=== PATIENT | male | born 1950 | race Caucasian/White ===

== ENCOUNTER 2017-08-24 01:06 | Inpatient (IN) | payer MEDICARE, SELFPAY ==
[2017-08-24] VITALS (193 sets, daily range): BP systolic 111–162; BP diastolic 56–107; PULSE 61–155; RESP 14–43; TEMP 36.7–36.9; O2SAT 86–99
--- NOTE | 2017-08-24 01:23 | ED.GENADUL_ITS ---
Disposition Clinical Impression: Spontaneous pneumothorax, Atrial fibrillation with RVR, COPD with acute exacerbation Disposition: [facility] INPATIENT Condition: Fair Medical Decision Making - Lab Data Laboratory Tests 08/24/17 08/24/17 08/24/17 01:25 01:25 01:25 WBC 5.75 RBC 5.04 Hgb 14.7 Hct 44.4 MCV 88.1 MCH 29.2 MCHC 33.1 RDW 14.7 H Plt Count 105 L MPV 11.4 H Immature Gran % 0.2 Neutrophils % 72.0 Lymphocytes % 18.3 Monocytes % 8.3 Eosinophils % 1.0 Basophils % 0.2 Absolute Neutrophils 4.14 Absolute Lymphocytes 1.05 L Absolute Monocytes 0.48 Absolute Eosinophils 0.06 Absolute Basophils 0.01 Sodium 136 Potassium 3.8 Chloride 100 Carbon Dioxide 28.2 Anion Gap 7.8 BUN 24 H Creatinine 1.68 H Estimated GFR/1.73 m2 40.96 Glucose 263 H Calcium 8.8 Magnesium 1.7 L Total Bilirubin 0.4 Conjugated Bilirubin 0.14 AST 23 ALT 21 Alkaline Phosphatase 115 Troponin I < 0.02 Total Protein 7.8 Albumin 3.6 08/24/17 0128: 131bpm. Afib. T-wave inversion noted in II, III, aVF. Previous EKG notes minimal T-wave inversion in lead III but more pronounced in current EKG. No acute ST elevation. - Radiology Data Radiology results: report reviewed, image reviewed Chest x-ray: 1. There is a large right pneumothorax. There is complete collapse of the right lung. 2. There may be mild shift of the mediastinum to left consistent with mild tension pneumothorax. Status post attempted pigtail chest tube: Pigtail chest tube noted in lateral chest wall soft tissue. Stable right large pneumothorax noted with collapse of right lung. Status post chest tube placement: Interval placement of right chest tube with interval decrease in right pneumothorax and reexpansion of right lung - Medical Decision Making 67-year-old male with a history of atrial fibrillation on Eliquis, and COPD who presents for shortness of breath today worse this evening. EMS notes O2 saturation were in the 80s on room air on arrival and increased to 95% after 2 neb treatments. Patient is significantly decreased breath sounds on the right posterior chest with wheezing and rhonchi left posterior chest. Heart rate 130s -140s in atrial fibrillation on EKG. blood pressure 129/107. O2 sat 88% on 2L, increased to 4L. He admitted to some chest pain upon asking that started just prior to arrival. I do not see any rate control medication for his atrial fibrillation on his medication list. Differential diagnosis includes dyspnea associated with atrial fibrillation, acute COPD exacerbation, pneumonia, CA, pneumothorax. He has a previous history of spontaneous pneumothorax with right chest tube placement 1 year ago. He denies any new current injury. Will do a cardiac workup, portable chest x-ray, give IV Solu-Medrol, Cardizem, and albuterol neb treatment. 0220: X-ray notes large right pneumothorax. Vrad called to notify the findings and thought there was either a mild tension pneumothorax or could be patient positioning with rotation. Patient's blood pressure has been stable with systolic 130s-140s. Patient is still tachycardic into the 110s-120s. He is awake and alert and answering questions. As patient is on Eliquis, will place a pigtail chest tube to minimize excessive bleeding with placement of a large chest tube. Labs reviewed. Troponin negative. 0230: Call placed to surgery Dr. Deleon to discuss any contraindications or other recommendations as patient is on Eliquis. No other recommendations and can proceed with pigtail chest tube. 0245: Difficulty with placing pigtail chest tube at bedside due to lack of necessary equipment in pigtail kit and improper placement noted in subcutaneous tissue on chest x-ray. Call placed to Dr. Deleon to come in to assist with pigtail placement. While waiting for Dr. Deleon, I started to attempt to place a 20 [place] chest tube at the same pigtail chest tube site at 4th IC space mid axillary line at bedside when Dr. Deleon arrived and plan is now for her to place chest tube. 0315: Discussed with Dr. Aldana regarding admission and he believed this was a surgical admission as he presented with large right pneumothorax requiring chest tube. I explained the patient also has atrial fibrillation with RVR, requiring cardizem gtt, and acute COPD requiring steroids and nebs. I discussed this with Dr. Deleon and she requests patient be admitted to hospitalist for management of multiple medical issues. 0345: Pt had significant pain during chest tube placement requiring 150mcg fentanyl and 1mg dilaudid. After chest tube placement, pt's BP stable at 153/96 , HR 100s-120s. O2 sat improved to 96% on 4L. Will start cardizem gtt. 0400: Case discussed with Dr. Aldana - accepts patient for admission. 0415: Proper placement of chest tube confirmed on chest xray with decrease of pneumothorax and reexpansion of right lung. History of Present Illness - General Stated complaint: IDANIA RESCUE Time Seen by Provider: 08/24/17 01:20 Source: patient Mode of arrival: ambulatory Limitations: no limitations - History of Present Illness Initial comments: 67-year-old male with history of atrial fibrillation and COPD and chronic smoker who presents for shortness of breath today worse this evening. Patient states he was mowing the lawn at home today and his shortness of breath began. Patient denies known fever. Patient states he smokes 1 pack of cigarettes daily. Patient also admits to anterior chest pain that 1 hour prior to arrival. Upon EMS arrival, O2 saturation 80s on room air. After 2 nebulizer treatments per EMS, O2 saturation increased to 95%. Patient does not use oxygen at home. Patient denies history of intubations. - Related Data Narcotic Contract 12/29/12 Epinephrine [Epipen 2-Virgil] 0.3 mg IM ONCE #1 each 07/14/14 Amlodipine Besylate 10 mg PO DAILY #90 tab-cap 11/04/16 Apixaban [Eliquis] 5 mg PO BID #180 tab 01/03/17 Acetaminophen [Tylenol] 1,000 mg PO TID #120 tab 02/05/17 Docusate Sodium [Colace] 100 mg PO BID PRN PRN cap 02/05/17 QUEtiapine [Seroquel] 100 mg PO HS PRN #90 tab 02/28/17 Doxycycline Hyclate 50 mg PO BID #180 tab-cap 04/09/17 MORPHine [Msir] 30 mg PO BID #56 tab-cap 08/15/17 Morphine Sulfate [Morphine Sulfate Er] 100 mg PO BID PRN #56 tab 08/15/17 Allergies Allergy/AdvReac Type Severity Reaction Status Date / Time spironolactone Allergy Unknown Unverified 08/24/17 01:26 bee pollen Allergy Unverified 08/24/17 01:26 Review of Systems Constitutional: denies: chills, fever Eyes: denies: eye pain ENT: denies: ear pain, dental pain Respiratory: shortness of breath. denies: cough Cardiovascular: chest pain, dyspnea on exertion Gastrointestinal: denies: abdominal pain, nausea, vomiting Genitourinary: denies: urgency, dysuria, frequency Musculoskeletal: denies: back pain Skin: denies: rash, lesions Neurological: denies: headache, weakness, numbness Past Medical History - Past Medical History Medical history: AFIB, COPD, hypertension Chronic pain syndrome Surgical history: other (history of septic joint and replacement on chronic antibiotic therapy, history of right lung pneumothorax with chest tube placement ) Family history: no significant family history - Social History Smoking status: current everyday smoker Alcohol use: none (Previous history of heavy alcohol use, last use 10 years ago) Drug use: none General Exam - General Limitations: no limitations General appearance: alert - Eye Eye exam: Present: EOMI - Neck Neck exam: Present: normal inspection - Respiratory Respiratory exam: Present: other (Left posterior chest with wheezing and rhonchi. Significantly diminished breath sounds right posterior chest) - Cardiovascular Cardiovascular Exam: Present: tachycardia, irregular rhythm - GI/Abdominal GI/Abdominal exam: Present: soft, normal bowel sounds. Absent: distended, tenderness, guarding, rebound, rigid - Extremities Exam Extremities exam: Present: other (No bilateral lower extremity edema.) - Neurological Exam Neurological exam: Present: alert, oriented X3 - Psychiatric Psychiatric exam: Present: normal affect - Skin Skin exam: Present: warm, dry, intact
[2017-08-24] MEDS: methylPREDNISolone SUCC 125 MG VIAL IVP (01:30)
[2017-08-24] MEDS: Albuterol 2.5 MG/3 ML INH SOLN VIAL UPD (01:40)
--- NOTE | 2017-08-24 01:40 | DI.REPORT_ITS ---
SYMPTOM/DIAGNOSIS: DIMINISHED BREATH SOUNDS RT, ? PNEUMONIA OR PNEUMOTHORAX PORTABLE AP CHEST AT 140 AM: Comparison is made with 03/22/15. There is a large right pneumothorax with medial collapse of the right lung. There is mild mediastinal shift toward the left indicating an element of tension pneumothorax. There is a question of a tiny amount of pleural fluid on the left. No rib fractures are seen. IMPRESSION: Large right pneumothorax with near complete collapse of the right lung and mild tension pneumothorax.
[2017-08-24 01:42] LABS: Abs Immature Grans 0.01 k/cumm (0.0-0.09); Absolute Basophil Count 0.01 k/cumm (0.0-0.2); Absolute Eosinophil Count 0.06 k/cumm (0.0-0.7); Absolute Lymphocyte Count 1.05 k/cumm (1.2-3.4); Absolute Monocyte Count 0.48 k/cumm (0.11-0.7); Absolute Neutrophil Count 4.14 k/cumm (1.2-6.7); Basophils % 0.2; HCT 44.4 % (40.0-50.0); HGB 14.7 g/dL (13.5-17.5); Immature Grans % 0.2; Lymphocytes % 18.3; Mean Corp. HGB Concentration 33.1 g/dL (32.0-36.0); Mean Corpuscular Hemoglobin 29.2 pg (27.0-33.0); Mean Corpuscular Volume 88.1 fL (80-95); Mean Platelet Volume 11.4 fL (8.0-11.0); Monocytes % 8.3; Platelet Count 105 x1000/uL (130-400); RBC 5.04 m/cumm (4.50-6.00); RBC Distribution Width 14.7 % (11.8-14.1); White Blood Cell Count 5.75 k/cumm (4.4-10.8)
[2017-08-24 01:57] LABS: ALT 21 U/L (12-78); AST 23 U/L (15-37); Albumin 3.6 g/dL (3.4-5.0); Alkaline Phosphatase 115 U/L (46-116); Bilirubin, Direct 0.14 mg/dL (0.00-0.20); Bilirubin, Total 0.4 mg/dL (0.2-1.0); Total Protein 7.8 g/dL (6.4-8.2)
[2017-08-24 01:58] LABS: Anion Gap 7.8 mmol/L (3-11); BUN 24 mg/dL (7-18); CO2 28.2 mmol/L (21.0-32.0); CREATININE 1.68 mg/dL (0.70-1.30); Calcium 8.8 mg/dL (8.5-10.1); Chloride 100 mmol/L (98-107); Estimated GFR 40.96 (mL/min/1.73m2); Glucose 263 mg/dL (70-100); Magnesium 1.7 mg/dL (1.8-2.4); Potassium 3.8 mmol/L (3.5-5.1); Sodium 136 mmol/L (136-145)
[2017-08-24 01:59] LABS: Troponin I < 0.02 ng/mL (0.00-0.06)
--- NOTE | 2017-08-24 02:16 | DI.VRAD_ITS ---
EXAM: XR Chest, 1 View CLINICAL HISTORY: 67 years old, male; Pain and signs and symptoms; Cough and shortness of breath; Symptoms not specified; Chest pain; Type not specified TECHNIQUE: Frontal view of the chest. COMPARISON: CR - CHEST 2 VIEWS PA,LAT 2015-03-22 14:31 FINDINGS: Lungs: There is complete collapse of the right lung. No evidence of focal consolidation. Pleural space: There is a large right pneumothorax. There may be mild shift of the mediastinum to the left consistent with mild tension pneumothorax. Blunting of the left costophrenic angle may represent a small pleural effusion. Heart: The heart is mildly enlarged. Mediastinum: The mediastinal contour is normal. Bones/joints: The skeletal structures and soft tissues show no evidence of fracture or other acute processes. Soft tissues: The soft tissues of the extrathoracic region are unremarkable. Vasculature: The aorta demonstrates mild atherosclerotic calcification. IMPRESSION: 1. There is a large right pneumothorax. There is complete collapse of the right lung. 2. There may be mild shift of the mediastinum to the left consistent with mild tension pneumothorax. Dictated and Authenticated by: Gomez Warner MD. Ordering:LITA LINARES MD
--- NOTE | 2017-08-24 02:59 | DI.REPORT_ITS ---
SYMPTOM/DIAGNOSIS: CONFIRM CHEST TUBE PLACEMENT PORTABLE AP CHEST 304 AM: A pigtail catheter is seen positioned external to the chest cavity in the right lateral chest wall. There is stable large right tension pneumothorax. There is an old right lateral rib deformity. IMPRESSION: Pigtail catheter is in the soft tissues of the chest wall.
--- NOTE | 2017-08-24 03:28 | DI.VRAD_ITS ---
EXAM: XR Chest, 1 View CLINICAL HISTORY: 67 years old, male; Device placement; Chest tube TECHNIQUE: Frontal view of the chest. COMPARISON: CR - PORTABLE CHEST ONE VIEW 2017-08-24 01:38 FINDINGS: Lungs: Unremarkable. No consolidation. Pleural space: Stable large right pneumothorax again noted with collapse of the right lung. Heart: Unremarkable. No cardiomegaly. Mediastinum: Unremarkable. Bones/joints: Age-indeterminate right lateral rib fracture deformities. Tubes, lines and devices: Right pigtail catheter chest tube tip within the lateral chest wall soft tissue. IMPRESSION: 1. Stable large right pneumothorax again noted with collapse of the right lung. 2. Right pigtail catheter chest tube tip within the lateral chest wall soft tissue. 3. Age-indeterminate right lateral rib fracture deformities. As Dictated and Authenticated by: Taiwo Reis MD. Ordering:LITA LINARES MD
[2017-08-24] MEDS: fentaNYL 100 MCG/2 ML VIAL 50 MCG IVP ×9 (03:35→21:11)
[2017-08-24] MEDS: HYDROmorphone 2 MG/ML VIAL (04:03)
[2017-08-24] MEDS: Lidocaine 1% Multi-Dose 50 ML VIAL (04:04)
--- NOTE | 2017-08-24 04:11 | DI.REPORT_ITS ---
SYMPTOM/DIAGNOSIS: S/P CHEST TUBE PLACEMENT, CONFIRM PLACEMENT PORTABLE AP CHEST: A chest tube has been inserted into the left chest cavity positioned laterally. Air is now seen in the right chest wall soft tissues. There is a residual small right pneumothorax. There is no longer mediastinal shift. Right lower lobe atelectasis is present. IMPRESSION: Improvement in right pneumothorax status post chest tube. The side hole of the chest tube is positioned outside of the ribs.
--- NOTE | 2017-08-24 04:27 | DI.VRAD_ITS ---
EXAM: XR Chest, 1 View CLINICAL HISTORY: 67 years old, male; Device placement; Chest tube TECHNIQUE: Frontal view of the chest. COMPARISON: CR - PORTABLE CHEST ONE VIEW 2017-08-24 03:04 FINDINGS: Lungs: Unremarkable. No consolidation. Pleural space: See below. Heart: Unremarkable. No cardiomegaly. Mediastinum: Unremarkable. Bones/joints: Right lateral rib fracture deformity again suggested. Soft tissues: Right chest wall soft tissue gas. Tubes, lines and devices: Interval placement of right chest tube with significant interval decrease in right pneumothorax and reexpansion of the right lung. IMPRESSION: Interval placement of right chest tube with significant interval decrease in right pneumothorax and reexpansion of the right lung. Dictated and Authenticated by: Taiwo Reis MD. Ordering:LITA LINARES MD
--- NOTE | 2017-08-24 04:29 | ED.GENADUL_ITS ---
Disposition Clinical Impression: Spontaneous pneumothorax, Atrial fibrillation with RVR, COPD with acute exacerbation Disposition: [facility] INPATIENT Condition: Fair Medical Decision Making - Lab Data Laboratory Tests 08/24/17 08/24/17 08/24/17 01:25 01:25 01:25 WBC 5.75 RBC 5.04 Hgb 14.7 Hct 44.4 MCV 88.1 MCH 29.2 MCHC 33.1 RDW 14.7 H Plt Count 105 L MPV 11.4 H Immature Gran % 0.2 Neutrophils % 72.0 Lymphocytes % 18.3 Monocytes % 8.3 Eosinophils % 1.0 Basophils % 0.2 Absolute Neutrophils 4.14 Absolute Lymphocytes 1.05 L Absolute Monocytes 0.48 Absolute Eosinophils 0.06 Absolute Basophils 0.01 Sodium 136 Potassium 3.8 Chloride 100 Carbon Dioxide 28.2 Anion Gap 7.8 BUN 24 H Creatinine 1.68 H Estimated GFR/1.73 m2 40.96 Glucose 263 H Calcium 8.8 Magnesium 1.7 L Total Bilirubin 0.4 Conjugated Bilirubin 0.14 AST 23 ALT 21 Alkaline Phosphatase 115 Troponin I < 0.02 Total Protein 7.8 Albumin 3.6 History of Present Illness - General Chief complaint: SOB Stated complaint: IDANIA RESCUE Time Seen by Provider: 08/24/17 01:20 Source: patient Mode of arrival: ambulatory Limitations: no limitations - Related Data Narcotic Contract 12/29/12 Epinephrine [Epipen 2-Virgil] 0.3 mg IM ONCE #1 each 07/14/14 Amlodipine Besylate 10 mg PO DAILY #90 tab-cap 11/04/16 Apixaban [Eliquis] 5 mg PO BID #180 tab 01/03/17 Acetaminophen [Tylenol] 1,000 mg PO TID #120 tab 02/05/17 Docusate Sodium [Colace] 100 mg PO BID PRN PRN cap 02/05/17 QUEtiapine [Seroquel] 100 mg PO HS PRN #90 tab 02/28/17 Doxycycline Hyclate 50 mg PO BID #180 tab-cap 04/09/17 MORPHine [Msir] 30 mg PO BID #56 tab-cap 08/15/17 Morphine Sulfate [Morphine Sulfate Er] 100 mg PO BID PRN #56 tab 08/15/17 Allergies Allergy/AdvReac Type Severity Reaction Status Date / Time spironolactone Allergy Unknown Unverified 08/24/17 01:26 bee pollen Allergy Unverified 08/24/17 01:26 Review of Systems Constitutional: denies: chills, fever Eyes: denies: eye pain ENT: denies: ear pain, dental pain Respiratory: shortness of breath. denies: cough Cardiovascular: chest pain, dyspnea on exertion Gastrointestinal: denies: abdominal pain, nausea, vomiting Genitourinary: denies: urgency, dysuria, frequency Musculoskeletal: denies: back pain Skin: denies: rash, lesions Neurological: denies: headache, weakness, numbness Past Medical History - Past Medical History Medical history: AFIB, COPD, hypertension Chronic pain syndrome Surgical history: other (history of septic joint and replacement on chronic antibiotic therapy, history of right lung pneumothorax with chest tube placement ) Family history: no significant family history - Social History Alcohol use: none (Previous history of heavy alcohol use, last use 10 years ago) Drug use: none General Exam - General Limitations: no limitations General appearance: alert Course Vital Signs - 24 hr 08/24/17 08/24/17 08/24/17 01:14 01:16 01:20 Temperature 36.7 C Pulse 150 H 102 H Respiratory 28 H 21 25 H Rate Blood Pressure 129/107 129/107 Pulse Oximetry 94 L 90 L 94 L 08/24/17 08/24/17 08/24/17 01:27 01:30 01:31 Temperature Pulse 96 H Respiratory 26 H 24 22 Rate Blood Pressure 129/66 Pulse Oximetry 93 L 94 L 08/24/17 08/24/17 01:35 01:40 Temperature Pulse 135 H Respiratory 23 Rate Blood Pressure Pulse Oximetry 94 L
--- NOTE | 2017-08-24 05:40 | NUR.NOTE ---
Nursing Note: chest tube was placed to water seal no drainage at present.
[2017-08-24] MEDS: Insulin Aspart 300 UNITS/3 ML PEN SC ×3 (08:58→17:16)
[2017-08-24] MEDS: Pantoprazole 40 MG VIAL IVP (09:10)
[2017-08-24] MEDS: Heparin 5,000 UNITS/ML VIAL 5000 UNITS SC ×2 (09:11→17:17)
[2017-08-24] MEDS: methylPREDNISolone SUCC 40 MG VIAL IVP ×3 (09:11→21:12)
[2017-08-24] MEDS: Albuterol/Ipratropium 3 ML UPD VIAL UPD ×3 (09:11→18:05)
[2017-08-24] MEDS: Metoprolol 50 MG TAB PO ×2 (09:11→21:13)
[2017-08-24] MEDS: Normal Saline Flush 10 ML SYR ×3 (09:25→21:13)
[2017-08-24] MEDS: Normal Saline 1,000 ML 150 ML IV (10:28)
--- NOTE | 2017-08-24 10:31 | PDOC.OPNB ---
Date of Service: 08/24/17 Time of Service: 10:31 Op Note Date of Procedure: 08/24/17 Preprocedure Diagnosis: Right tension pneumothorax Postprocedure Diagnosis: Right tension pneumothorax Procedure: Right chest tube placement Surgeon: Neal Deleon MD Anesthesia: Local with 20 cc 1% lidocaine. Fentanyl 150 mcg in incremental doses and Dilaudid 1 mg IV EBL: Minimal Findings: Right tension pneumothorax. Post-procedure CXR with re-expansion of lung noted. Complications: None Indications: 67 y/o male smoker who presented to the ED for shortness of breath and was found to have a right tension pneumothorax. Patient is anticoagulated on Eliquis for A fib. Pigtail catheter placement had been attempted by the ED physician but the catheter was noted to be in the chest wall and removed. Upon my arrival, procedure was in progress for an open chest tube placement by Dr. Hebert. Pleural cavity had not yet been entered. I discussed with patient procedure for open chest tube placement by me. We discussed that he is at increased risk for bleeding on Eliquis. Informed consent obtained prior to my proceeding with the procedure. Procedure: Instruments were changed out for a new set. Chest wall re-prepped with Chloraprep and redraped with sterile towels.
[2017-08-24 10:43] LABS: Hemoglobin A1C 7.2 % (4.5-6.2)
[2017-08-24 10:47] LABS: Troponin I 0.04 ng/mL (0.00-0.06)
--- NOTE | 2017-08-24 10:51 | DI.REPORT_ITS ---
SYMPTOM/DIAGNOSIS: F/U RT PNEUMOTHORAX AND CHEST TUBE PLACEMENT PORTABLE AP CHEST AT 1154 AM: The chest tube has now been advanced projecting at the right lung apex. There is a small right residual pneumothorax. Atelectasis is again noted at the right lung base. Increasing densities are seen at the left costophrenic angle likely representing increasing effusion.
--- NOTE | 2017-08-24 11:01 | PDOC.OPNB_ITS ---
Op Note Date of Procedure: 08/24/17 Pre-procedure Diagnosis: Right tension pneumothorax Post-procedure Diagnosis: Right tension pneumothorax Procedure: Right chest tube placement Surgeon: Neal Deleon MD Anesthesia: Local with 20 cc 1% lidocaine. Fentanyl 150 mcg in incremental doses and Dilaudid 1 mg IV EBL: Minimal Findings: Right tension pneumothorax. Post-procedure CXR with re-expansion of lung noted. Complications: None Indications: 67 y/o male smoker who presented to the ED for shortness of breath and was found to have a right tension pneumothorax. Patient is anticoagulated on Eliquis for A fib. Pigtail catheter placement had been attempted by the ED physician but the catheter was noted to be in the chest wall and removed. Upon my arrival, procedure was in progress for an open chest tube placement by Dr. Hebert. Pleural cavity had not yet been entered. I discussed with patient procedure for open chest tube placement by me. We discussed that he is at increased risk for bleeding on Eliquis. Informed consent obtained prior to my proceeding with the procedure. Procedure: Instruments were changed out for a new set. Right chest wall including the existing skin incision site in the anterior axillary line at the level of the nipple was re-prepped with Chloraprep and redraped with sterile towels. Local anesthesia was utilized throughout the procedure for a total of 20 cc 1% lidocaine. The patient also received IV Fentanyl in incremental doses for a total of 150 mcg and Dilaudid 1 mg IV for the procedure. Subcutaneous tissue and chest wall muscle were split with blunt dissection. Skin incision enlarged. Right pleural cavity bluntly entered with a Felicitas clamp over the palpable superior edge of a rib. Large amount of air release was noted upon entering the pleural space. A 20 Fr chest tube was inserted. Skin incision reapproximated adjacent to the tube with interrupted 0-Prolene sutures. A U stitch of 0-Silk was placed around the chest tube and the free ends of the suture wrapped around the tube. Vaseline gauze applied. Dry sterile gauze and foam tape dressing applied. Post-procedure CXR obtained which showed re- expansion of the right lung. Chest tube in pleural space with a small amount of subcutaneous air. The last hole on the chest tube is noted to be just at or just outside the edge of the pleural cavity. No air leak noted on inspection of the chest tube. Patient tolerated the procedure well. He was subsequently transferred to the ICU in satisfactory condition.
--- NOTE | 2017-08-24 11:43 | PDOC.CONS ---
Date of Service: 08/24/17 Time of Service: 11:43 Assessment/Plan - Assessment/Plan (1) Spontaneous pneumothorax Assessment: Lung re-expanded again on my review of CXR s/p repositioning of right chest tube. There appears to be a tiny residual apical pneumothorax. Plan: Maintain chest tube to (-) 20 cm H2O suction. Incentive spirometer and O2 per NC. Follow-up CXR in am. Patient has been on po Doxycyline at home but I am told this is not available in the hospital formulary. Will start him on Clindamycin for antibiotic coverage re: chest tube and h/o MRSA. Will sign out to Dr. Malone 08/25/17. History of Present Illness - History of Present Illness Chief Complaint: Spnotaneous right pneumothorax History of Present Illness: 67 y/o male who presented to the ED early this am with c/o shortness of breath. He had been outt mowing the lawn yesterday. He has a prior history of spontaneous right pneumothorax for which he had a chest tube placement 1-2 years ago. Pneumothorax resolved at that time without further surgical intervention. He is a smoker and has a history of COPD. He is on Eliquis for A fib. 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 CXR in the ED demonstrated a right tension pneumothorax. Pigtail catheter placement was attempted unsuccessfully by Dr. Hebert. I placed a 20 Fr right chest tube in the ED. Re-expansion of the lung was noted on follow-up film. On exam in the ICU this am, patient is noted to have audible squeaking from his chest tube site. CXR was obtained which shows recurrent partial collapse of the right lung. The chest tube appears to have pulled out partially on my review of the film. I discussed with the patient re: repositioning the chest tube at the bedside and verbal consent was obtained prior to proceeding. - Past Medical History Cardiac: AFIB Pulmonary: COPD Infectious Disease: Other (h/o MRSA) - Past Surgical History Past Surgical History: Other (knee surgery) - Past Social History Smoke: # pack years (everyday smoker) Alcohol: None (previous h/o ETOH use) Drugs: None Review of Systems - Review of Systems Constitutional: denies: Fever, Chills Respiratory: Shortness of Breath. denies: Cough Cardiovascular: Chest Pain - Medications/Allergies Allergies/Adverse Reactions: Allergies Allergy/AdvReac Type Severity Reaction Status Date / Time spironolactone Allergy Unknown Unverified 08/24/17 01:26 bee pollen Allergy Unverified 08/24/17 01:26 Medications: Current Medications Acetaminophen (Tylenol) 0 mg PO Q4H PRN PRN Al Hydrox/Mg Hydrox/Simethicone (Mylanta Liquid) 30 ml PO Q2H PRN PRN Albuterol Sulfate (Proventil Updraft) 2.5 mg UPD Q2H PRN PRN Albuterol/Ipratropium (Duoneb Updraft) 3 ml UPD Q6H [facility] Last Admin: 08/24/17 09:11 Dose: 3 ml Dextrose (Insta-Glucose) 0 gm PO DIRECTED PRN Dextrose/Water () 0 gm IVP DIRECTED PRN Dimethicone/Zinc Oxide (Jamie Protect Cream) 0 gm TP PRN PRN Docusate Sodium (Colace) 100 mg PO TID PRN PRN Fentanyl Citrate (Sublimaze) Confirm Administered Dose 100 mcg .ROUTE .DM PRN Fentanyl Citrate (Sublimaze) 50 mcg IVP Q1H PRN PRN Last Admin: 08/24/17 10:32 Dose: 50 mcg Heparin Sodium (Porcine) () 5,000 units SC Q8H [facility] Last Admin: 08/24/17 09:11 Dose: 5,000 units Diltiazem HCl 100 mg/ Sodium (Chloride) 100 mls @ 5 mls/hr IV INFUSION [facility] PRN Reason: Protocol Last Admin: 08/24/17 04:56 Dose: 5 mg/hr, 5 mls/hr Sodium Chloride (Saline 1000ml Bag) 1,000 mls @ 150 mls/hr IV INFUSION [facility] Stop: 08/24/17 14:39 Last Admin: 08/24/17 10:28 Dose: 150 mls/hr Insulin Aspart (Novolog Flexpen) 0 units SC 0800,1200,1700 [facility] PRN Reason: Protocol Last Admin: 08/24/17 08:58 Dose: 3 units Lidocaine HCl (Xylocaine 1% Inj) Confirm Administered Dose 50 ml .ROUTE .DM PRN Last Admin: 08/24/17 04:04 Dose: 50 ml Magnesium Hydroxide (Milk Of Magnesia) 30 ml PO DAILY PRN PRN Methylprednisolone Sodium Succinate (Solu-Medrol) 40 mg IVP Q6H [facility] Last Admin: 08/24/17 09:11 Dose: 40 mg Metoprolol Tartrate (Lopressor) 50 mg PO BID [facility] Last Admin: 08/24/17 09:11 Dose: 50 mg Pantoprazole Sodium (Protonix Injection) 40 mg IVP DAILY [facility] Last Admin: 08/24/17 09:10 Dose: 40 mg Doxycycline Hyclate (50 Mg) 0 each PO BID [facility] Polyethylene Glycol (Miralax) 17 gm PO DAILY PRN PRN PRN Reason: Constipation Quetiapine Fumarate (Seroquel) 100 mg PO HS PRN Sodium Chloride (Saline Flush 10 Ml Syringe-Sterile Field) 10 ml IVP PRN PRN Objective - Exam Vitals and I&O: Vital Signs Temp 36.7 C 08/24/17 01:14 Pulse 114 H 08/24/17 05:35 Resp 21 08/24/17 05:35 BP 113/73 08/24/17 05:35 Pulse Ox 92 L 08/24/17 09:41 Intake & Output 08/23/17 08/23/17 08/24/17 11:59 23:59 11:59 Output Total 400 Balance -400 Weight 106.6 kg Output: Urine 400 Other: Urine Color Yellow Urine Appearance Clear Urine Odor Normal Voiding Methods Urinal General: Alert, Oriented x3, Cooperative, No acute distress Neck: Supple Lungs: Clear to auscultation. denies: Normal air movement (diminished breath sounds on the right) Skin: denies: Rashes Neurological: Normal speech Psych/Mental Status: Mental status NL, Mood NL - Results Results: Laboratory Results WBC 5.75 k/cumm (4.4-10.8) 08/24/17 01:25 RBC 5.04 m/cumm (4.50-6.00) 08/24/17 01:25 Hgb 14.7 g/dL (13.5-17.5) 08/24/17 01:25 Hct 44.4 % (40.0-50.0) 08/24/17 01:25 MCV 88.1 fL (80-95) 08/24/17 01:25 MCH 29.2 pg (27.0-33.0) 08/24/17 01:25 MCHC 33.1 g/dL (32.0-36.0) 08/24/17 01:25 RDW 14.7 % (11.8-14.1) H 08/24/17 01:25 Plt Count 105 x1000/uL (130-400) L 08/24/17 01:25 MPV 11.4 fL (8.0-11.0) H 08/24/17 01:25 Immature Gran % 0.2 08/24/17 01:25 Neutrophils % 72.0 08/24/17 01:25 Lymphocytes % 18.3 08/24/17 01:25 Monocytes % 8.3 08/24/17 01:25 Eosinophils % 1.0 08/24/17 01:25 Basophils % 0.2 08/24/17 01:25 Absolute Neutrophils 4.14 k/cumm (1.2-6.7) 08/24/17 01:25 Absolute Lymphocytes 1.05 k/cumm (1.2-3.4) L 08/24/17 01:25 Absolute Monocytes 0.48 k/cumm (0.11-0.7) 08/24/17 01:25 Absolute Eosinophils 0.06 k/cumm (0.0-0.7) 08/24/17 01:25 Absolute Basophils 0.01 k/cumm (0.0-0.2) 08/24/17 01:25 Sodium 136 mmol/L (136-145) 08/24/17 01:25 Potassium 3.8 mmol/L (3.5-5.1) 08/24/17 01:25 Chloride 100 mmol/L (98-107) 08/24/17 01:25 Carbon Dioxide 28.2 mmol/L (21.0-32.0) 08/24/17 01:25 Anion Gap 7.8 mmol/L (3-11) 08/24/17 01:25 BUN 24 mg/dL (7-18) H 08/24/17 01:25 Creatinine 1.68 mg/dL (0.70-1.30) H 08/24/17 01:25 Estimated GFR/1.73 m2 40.96 (mL/min/1.73m2) 08/24/17 01:25 Glucose 263 mg/dL (70-100) H 08/24/17 01:25 Hemoglobin A1c 7.2 % (4.5-6.2) H 08/24/17 10:20 Calcium 8.8 mg/dL (8.5-10.1) 08/24/17 01:25 Magnesium 1.7 mg/dL (1.8-2.4) L 08/24/17 01:25 Total Bilirubin 0.4 mg/dL (0.2-1.0) 08/24/17 01:25 Conjugated Bilirubin 0.14 mg/dL (0.00-0.20) 08/24/17 01:25 AST 23 U/L (15-37) 08/24/17 01:25 ALT 21 U/L (12-78) 08/24/17 01:25 Alkaline Phosphatase 115 U/L (46-116) 08/24/17 01:25 Troponin I 0.04 ng/mL (0.00-0.06) 08/24/17 10:20 Total Protein 7.8 g/dL (6.4-8.2) 08/24/17 01:25 Albumin 3.6 g/dL (3.4-5.0) 08/24/17 01:25 - Procedures Procedures: Chest tube placed in ED ~ 0330 this morning. See procedure note for details. Repositioning right chest tube performed at bedside in ICU ~ 1100 this morning. After obtaining verbal consent, chest tube dressing was removed. Patient's nurse present at bedside. Right chest tube was noted to have pulled out to the 8 cm rylee at the skin level. Right chest wall, tube, and sutures were carefully prepped with betadine paint. Tube then advanced without resistance to the 22 cm rylee. The U-stitch suture was tied once around the tube and the free ends again wrapped around the tube. Xeroform gauze dressing was applied. This was followed by sterile 4x4 gauze and foam tape. Tube was also anchored to the lateral right abdominal wall with foam tape. Post-procedure CXR ordered to confirm tube placement and will be reviewed. Patient tolerated the procedure well.
--- NOTE | 2017-08-24 11:45 | DI.REPORT_ITS ---
SYMPTOM/DIAGNOSIS: PORTABLE AP CHEST at 1053 am: There has been increase in size of the right pneumothorax when compared with the previous exam performed at 418 am. The position of the chest tube is unchanged.
--- NOTE | 2017-08-24 11:47 | DI.VRAD_ITS ---
EXAM: XR Chest, 1 View EXAM DATE/TIME: 08/24/2017 10:42 AM CLINICAL HISTORY: 67 years old, male; Device placement; Chest tube TECHNIQUE: XR of the chest, 1 view. COMPARISON: CR - PORTABLE AP CHEST, POST LINE 2017-08-24 04:18 FINDINGS: Tubes, lines and devices: A right-sided chest tube is again in place. Lungs: There is again compression atelectasis at the right base. Pleural space: Right pneumothorax has increased in size, now moderate, with up to 3.0 cm pleural separation, previously small with up to 1.0 cm pleural separation. No left pneumothorax. Heart/Mediastinum: The cardiomediastinal silhouette is stable in appearance allowing for differences in positioning. Bones/joints: Bony structures appear unchanged. IMPRESSION: Increased size of a right-sided pneumothorax since earlier the same day, now moderate, again with a chest tube in place. Dictated and Authenticated by: Taiwo Reyes MD. Ordering:JOSE SIDDIQUI MD
[2017-08-24] MEDS: Normal Saline-STERILE FIELD 0.9% 10 ML SYR 30 ML (11:48)
--- NOTE | 2017-08-24 11:49 | PDOC.CONS_ITS ---
Date of Service: 08/24/17 Time of Service: 11:43 Assessment/Plan - Assessment/Plan (1) Spontaneous pneumothorax Assessment: Lung re-expanded again on my review of CXR s/p repositioning of right chest tube. There appears to be a tiny residual apical pneumothorax. Plan: Maintain chest tube to (-) 20 cm H2O suction. Incentive spirometer and O2 per NC. Follow-up CXR in am. Patient has been on po Doxycyline at home but I am told this is not available in the hospital formulary. Will start him on Clindamycin for antibiotic coverage re: chest tube and h/o MRSA. Will sign out to Dr. Malone 08/25/17. History of Present Illness - History of Present Illness Chief Complaint: Spnotaneous right pneumothorax History of Present Illness: 67 y/o male who presented to the ED early this am with c/o shortness of breath. He had been outt mowing the lawn yesterday. He has a prior history of spontaneous right pneumothorax for which he had a chest tube placement 1-2 years ago. Pneumothorax resolved at that time without further surgical intervention. He is a smoker and has a history of COPD. He is on Eliquis for A fib. 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 CXR in the ED demonstrated a right tension pneumothorax. Pigtail catheter placement was attempted unsuccessfully by Dr. Hebert. I placed a 20 Fr right chest tube in the ED. Re-expansion of the lung was noted on follow-up film. On exam in the ICU this am, patient is noted to have audible squeaking from his chest tube site. CXR was obtained which shows recurrent partial collapse of the right lung. The chest tube appears to have pulled out partially on my review of the film. I discussed with the patient re: repositioning the chest tube at the bedside and verbal consent was obtained prior to proceeding. - Past Medical History Cardiac: AFIB Pulmonary: COPD Infectious Disease: Other (h/o MRSA) - Past Surgical History Past Surgical History: Other (knee surgery) - Past Social History Smoke: # pack years (everyday smoker) Alcohol: None (previous h/o ETOH use) Drugs: None Review of Systems - Review of Systems Constitutional: denies: Fever, Chills Respiratory: Shortness of Breath. denies: Cough Cardiovascular: Chest Pain - Medications/Allergies Allergies/Adverse Reactions: Allergies Allergy/AdvReac Type Severity Reaction Status Date / Time spironolactone Allergy Unknown Unverified 08/24/17 01:26 bee pollen Allergy Unverified 08/24/17 01:26 Medications: Current Medications Acetaminophen (Tylenol) 0 mg PO Q4H PRN PRN Al Hydrox/Mg Hydrox/Simethicone (Mylanta Liquid) 30 ml PO Q2H PRN PRN Albuterol Sulfate (Proventil Updraft) 2.5 mg UPD Q2H PRN PRN Albuterol/Ipratropium (Duoneb Updraft) 3 ml UPD Q6H [facility] Last Admin: 08/24/17 09:11 Dose: 3 ml Dextrose (Insta-Glucose) 0 gm PO DIRECTED PRN Dextrose/Water () 0 gm IVP DIRECTED PRN Dimethicone/Zinc Oxide (Jamie Protect Cream) 0 gm TP PRN PRN Docusate Sodium (Colace) 100 mg PO TID PRN PRN Fentanyl Citrate (Sublimaze) Confirm Administered Dose 100 mcg .ROUTE .DM PRN Fentanyl Citrate (Sublimaze) 50 mcg IVP Q1H PRN PRN Last Admin: 08/24/17 10:32 Dose: 50 mcg Heparin Sodium (Porcine) () 5,000 units SC Q8H [facility] Last Admin: 08/24/17 09:11 Dose: 5,000 units Diltiazem HCl 100 mg/ Sodium (Chloride) 100 mls @ 5 mls/hr IV INFUSION [facility] PRN Reason: Protocol Last Admin: 08/24/17 04:56 Dose: 5 mg/hr, 5 mls/hr Sodium Chloride (Saline 1000ml Bag) 1,000 mls @ 150 mls/hr IV INFUSION [facility] Stop: 08/24/17 14:39 Last Admin: 08/24/17 10:28 Dose: 150 mls/hr Insulin Aspart (Novolog Flexpen) 0 units SC 0800,1200,1700 [facility] PRN Reason: Protocol Last Admin: 08/24/17 08:58 Dose: 3 units Lidocaine HCl (Xylocaine 1% Inj) Confirm Administered Dose 50 ml .ROUTE .DM PRN Last Admin: 08/24/17 04:04 Dose: 50 ml Magnesium Hydroxide (Milk Of Magnesia) 30 ml PO DAILY PRN PRN Methylprednisolone Sodium Succinate (Solu-Medrol) 40 mg IVP Q6H [facility] Last Admin: 08/24/17 09:11 Dose: 40 mg Metoprolol Tartrate (Lopressor) 50 mg PO BID [facility] Last Admin: 08/24/17 09:11 Dose: 50 mg Pantoprazole Sodium (Protonix Injection) 40 mg IVP DAILY [facility] Last Admin: 08/24/17 09:10 Dose: 40 mg Doxycycline Hyclate (50 Mg) 0 each PO BID [facility] Polyethylene Glycol (Miralax) 17 gm PO DAILY PRN PRN PRN Reason: Constipation Quetiapine Fumarate (Seroquel) 100 mg PO HS PRN Sodium Chloride (Saline Flush 10 Ml Syringe-Sterile Field) 10 ml IVP PRN PRN Objective - Exam Vitals and I&O: Vital Signs Temp 36.7 C 08/24/17 01:14 Pulse 114 H 08/24/17 05:35 Resp 21 08/24/17 05:35 BP 113/73 08/24/17 05:35 Pulse Ox 92 L 08/24/17 09:41 Intake & Output 08/23/17 08/23/17 08/24/17 11:59 23:59 11:59 Output Total 400 Balance -400 Weight 106.6 kg Output: Urine 400 Other: Urine Color Yellow Urine Appearance Clear Urine Odor Normal Voiding Methods Urinal General: Alert, Oriented x3, Cooperative, No acute distress Neck: Supple Lungs: Clear to auscultation. denies: Normal air movement (diminished breath sounds on the right) Skin: denies: Rashes Neurological: Normal speech Psych/Mental Status: Mental status NL, Mood NL - Results Results: Laboratory Results WBC 5.75 k/cumm (4.4-10.8) 08/24/17 01:25 RBC 5.04 m/cumm (4.50-6.00) 08/24/17 01:25 Hgb 14.7 g/dL (13.5-17.5) 08/24/17 01:25 Hct 44.4 % (40.0-50.0) 08/24/17 01:25 MCV 88.1 fL (80-95) 08/24/17 01:25 MCH 29.2 pg (27.0-33.0) 08/24/17 01:25 MCHC 33.1 g/dL (32.0-36.0) 08/24/17 01:25 RDW 14.7 % (11.8-14.1) H 08/24/17 01:25 Plt Count 105 x1000/uL (130-400) L 08/24/17 01:25 MPV 11.4 fL (8.0-11.0) H 08/24/17 01:25 Immature Gran % 0.2 08/24/17 01:25 Neutrophils % 72.0 08/24/17 01:25 Lymphocytes % 18.3 08/24/17 01:25 Monocytes % 8.3 08/24/17 01:25 Eosinophils % 1.0 08/24/17 01:25 Basophils % 0.2 08/24/17 01:25 Absolute Neutrophils 4.14 k/cumm (1.2-6.7) 08/24/17 01:25 Absolute Lymphocytes 1.05 k/cumm (1.2-3.4) L 08/24/17 01:25 Absolute Monocytes 0.48 k/cumm (0.11-0.7) 08/24/17 01:25 Absolute Eosinophils 0.06 k/cumm (0.0-0.7) 08/24/17 01:25 Absolute Basophils 0.01 k/cumm (0.0-0.2) 08/24/17 01:25 Sodium 136 mmol/L (136-145) 08/24/17 01:25 Potassium 3.8 mmol/L (3.5-5.1) 08/24/17 01:25 Chloride 100 mmol/L (98-107) 08/24/17 01:25 Carbon Dioxide 28.2 mmol/L (21.0-32.0) 08/24/17 01:25 Anion Gap 7.8 mmol/L (3-11) 08/24/17 01:25 BUN 24 mg/dL (7-18) H 08/24/17 01:25 Creatinine 1.68 mg/dL (0.70-1.30) H 08/24/17 01:25 Estimated GFR/1.73 m2 40.96 (mL/min/1.73m2) 08/24/17 01:25 Glucose 263 mg/dL (70-100) H 08/24/17 01:25 Hemoglobin A1c 7.2 % (4.5-6.2) H 08/24/17 10:20 Calcium 8.8 mg/dL (8.5-10.1) 08/24/17 01:25 Magnesium 1.7 mg/dL (1.8-2.4) L 08/24/17 01:25 Total Bilirubin 0.4 mg/dL (0.2-1.0) 08/24/17 01:25 Conjugated Bilirubin 0.14 mg/dL (0.00-0.20) 08/24/17 01:25 AST 23 U/L (15-37) 08/24/17 01:25 ALT 21 U/L (12-78) 08/24/17 01:25 Alkaline Phosphatase 115 U/L (46-116) 08/24/17 01:25 Troponin I 0.04 ng/mL (0.00-0.06) 08/24/17 10:20 Total Protein 7.8 g/dL (6.4-8.2) 08/24/17 01:25 Albumin 3.6 g/dL (3.4-5.0) 08/24/17 01:25 - Procedures Procedures: Chest tube placed in ED ~ 0330 this morning. See procedure note for details. Repositioning right chest tube performed at bedside in ICU ~ 1100 this morning. After obtaining verbal consent, chest tube dressing was removed. Patient's nurse present at bedside. Right chest tube was noted to have pulled out to the 8 cm rylee at the skin level. Right chest wall, tube, and sutures were carefully prepped with betadine paint. Tube then advanced without resistance to the 22 cm rylee. The U-stitch suture was tied once around the tube and the free ends again wrapped around the tube. Xeroform gauze dressing was applied. This was followed by sterile 4x4 gauze and foam tape. Tube was also anchored to the lateral right abdominal wall with foam tape. Post-procedure CXR ordered to confirm tube placement and will be reviewed. Patient tolerated the procedure well.
--- NOTE | 2017-08-24 11:52 | PHARADMIT ---
Addendum entered by Joo Swartz III 08/28/17 11:37: Pharmacy Note Subjective Post Op Day 4 of chest tube from spotaneous Pneumothorax. Awaiting transfer to [facility]. 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 Original Note: Addendum entered by Shiela Cabrera 08/25/17 11:52: Pharmacy Note Subjective Oxygen just increased for work of breathing, transferred from ICU to [place] to free up room Afib is rate controlled Objective VS ok, pain 10/24, lytes good, BG 222 Assessment Solu-medrol reduced to q12h Fentanyl interval increased to q3h/prn Has Clindamycin IV Pt's own Doxycycline 50mg po BID is not available yet, MD aware Two orders for Metoprolol...total dose of 62.5mg po BID Diltiazem drip is off (but still active) Chest tube in place, ?air leak, oxygen requirement increased this morning Plan Watch for restart of Apixiban Original Note: Admission Pharmacy Clinical Review ACUTE PNEUMOTHORAX, AFIB W/ RVR, ACUTE COPD EXACERBATION Code Status Full Code Current Weight 106.6 kg Renally Cleared and Narrow Therapeutic Index Meds CRCL ~44 ML/MIN QTc Value / Action Taken 472(QUETIAPINE FROM HOME) BP Control, Fever 113/73 AFEBRILE Electrolytes reviewed Mag 1.7 DVT Prophylaxis on apixaban at home, maybe checking with surgeons on timing of restart. Heparin subQ ordered for now Opiate Usage / Scheduled Bowel Regimen Ordered prn/prn Plt/SCr for Heparin / Enoxaparin 105/1.68 INR for Warfarin na H/H stable, WBC/Bands 14.7/44.4 wbc 5.75 Antibiotic appropriateness doxy 50mg bid from home med list Cultures and Sensitivities na Surgical ABX d/c within 24 hr na DM control / Insulin Dosing aspart SS, FS 257 A1c 7.2 Heart Failure (Check EF%) ([facility]'s, B-Block, Diuretics) na IV to PO Switch Home Meds Reviewed Home Meds Not Ordered Epinephrine [Epipen 2-Virgil] 0.3 mg IM ONCE #1 each 07/14/14 Amlodipine Besylate 10 mg PO DAILY #90 tab-cap 08/21/17 Apixaban [Eliquis] 5 mg PO BID #180 tab 01/03/17 MORPHine [Msir] 30 mg PO BID #56 tab-cap 08/15/17 Morphine Sulfate [Morphine Sulfate ER] 100 mg PO BID PRN #56 tab 08/15/17 Comments
--- NOTE | 2017-08-24 11:59 | NUR.NOTE ---
Nursing Note: At approx 11:10 after reviewing chest xray MD Deleon stated she needed to advance the chest tube in patient's chest. Collected supplies per MD, utilized bedside procedure checklist, assisted MD with procedure. Pt tolerated procedure with stable vitals, HR slightly elevated in low 100s. Repeate CXR taken.
[2017-08-24 12:02] LABS: TSH 1.28 uIU/mL (0.358-3.74)
--- NOTE | 2017-08-24 13:08 | PDOC.CMIN ---
Care Management Initial Assess REASON FOR HOSPITALIZATION:: Acute pneumothorax, A-Fib, Acute COPD Exacerbation PAST MEDICAL HISTORY/PAST SURGICAL HISTORY:: Medical: Hypertension, COPD, Hepatitis, anxiety/depression, Chronic LTKR infection, spontaneous pneumothorax, A-Fib. Surgical: Bilateral TKR, Multiple L knee scopes PREVIOUS FUNCTIONAL STATUS/SOCIAL/FAMILY SUPPORTS:: Lives alone at his home in [place]. Normally independent for all activities. CURRENT FUNCTIONAL STATUS:: Lying in bed with eyes closed and currently receiving IV fluids. ADVANCE DIRECTIVES:: None on file and did not address at this time. Has patient been provided with information about the portal?: No Did the patient sign up for the portal?: No CODE STATUS:: Full Code INSURANCE COVERAGE / FINANCIAL ISSUES:: Medicare CURRENT HOME/COMMUNITY SERVICES/EQUIPMENT:: None at this time PRIMARY CARE PHYSICIAN:: [facility]: Brenton Raymundo MD POTENTIAL DISCHARGE NEEDS:: None identified PATIENT/FAMILY EDUCATION NEEDS:: Discharge instructions ANTICIPATED BARRIERS TO DISCHARGE:: None identified TRANSPORTATION:: Friend will transport by private vehicle PLAN:: Return home when medically cleared for discharge. No services needed at this time. Neighbor or friend will transport at time of discharge by car. Readmission - Within the Past 30 Days Yes or No: N
[2017-08-24] MEDS: CLINDAMYCIN 300 MG/50 ML BAG 100 MG IVPB ×2 (13:09→18:08)
--- NOTE | 2017-08-24 14:54 | INITIAL_ITS ---
Care Management Initial Assess REASON FOR HOSPITALIZATION:: Acute pneumothorax, A-Fib, Acute COPD Exacerbation PAST MEDICAL HISTORY/PAST SURGICAL HISTORY:: Medical: Hypertension, COPD, Hepatitis, anxiety/depression, Chronic LTKR infection, spontaneous pneumothorax , A-Fib. Surgical: Bilateral TKR, Multiple L knee scopes PREVIOUS FUNCTIONAL STATUS/SOCIAL/FAMILY SUPPORTS:: Lives alone at his home in [place]. Normally independent for all activities. CURRENT FUNCTIONAL STATUS:: Lying in bed with eyes closed and currently receiving IV fluids. ADVANCE DIRECTIVES:: None on file and did not address at this time. Has patient been provided with information about the portal?: No Did the patient sign up for the portal?: No CODE STATUS:: Full Code INSURANCE COVERAGE / FINANCIAL ISSUES:: Medicare CURRENT HOME/COMMUNITY SERVICES/EQUIPMENT:: None at this time PRIMARY CARE PHYSICIAN:: [facility]: Brenton Raymundo MD POTENTIAL DISCHARGE NEEDS:: None identified PATIENT/FAMILY EDUCATION NEEDS:: Discharge instructions ANTICIPATED BARRIERS TO DISCHARGE:: None identified TRANSPORTATION:: Friend will transport by private vehicle PLAN:: Return home when medically cleared for discharge. No services needed at this time. Neighbor or friend will transport at time of discharge by car. Readmission - Within the Past 30 Days Yes or No: N
--- NOTE | 2017-08-24 16:18 | DI.VRAD_ITS ---
EXAM: XR Chest, 1 View EXAM DATE/TIME: 08/24/2017 11:54 AM CLINICAL HISTORY: 67 years old, male; Device placement; Chest tube TECHNIQUE: XR of the chest, 1 view. COMPARISON: CR - PORTABLE AP CHEST, POST LINE 2017-08-24 10:51 FINDINGS: Tubes, lines and devices: A right chest tube has been replaced or advanced, with its tip now projecting medially over the right apex. Lungs: There is again compression atelectasis at the right base. Pleural space: Right pneumothorax has decreased in size, with trace residual. No left pneumothorax. There is again probably some pleural thickening and/or small effusion laterally at the left base. Heart/Mediastinum: The cardiomediastinal silhouette is stable in appearance allowing for differences in positioning. Bones/joints: Bony structures appear unchanged. IMPRESSION: Right chest tube replaced or advanced since earlier the same day, tip now projecting medially over the right apex, with decreased right-sided pneumothorax, with trace residual. Other findings stable. Dictated and Authenticated by: Taiwo Reyes MD. Ordering:JOSE SIDDIQUI MD
[2017-08-24 18:29] LABS: Troponin I 0.02 ng/mL (0.00-0.06)
--- NOTE | 2017-08-24 22:37 | DI.REPORT_ITS ---
SYMPTOM/DIAGNOSIS: PORTABLE AP CHEST AT 1032 PM: Comparison is made with the exam performed at 1154 am. The position of the chest tube again projects at the medial right lung apex. There has been interval increase in size of the right pneumothorax, now moderate in size
--- NOTE | 2017-08-24 22:41 | DI.VRAD_ITS ---
EXAM: XR Chest, 1 View CLINICAL HISTORY: 67 years old, male; Device placement; Chest tube; Patient HX: Chest tube leak; Additional info: Acute pneumothorax, afib TECHNIQUE: Frontal view of the chest. COMPARISON: CR - PORTABLE AP CHEST, POST LINE 2017-08-24 11:54 FINDINGS: Lungs: Low lung volumes. Interstitial and air space opacities are similar to the previous study. Pleural space: Significant increase in size of a now moderate right pneumothorax. Apical right chest tube in satisfactory position. Heart: Moderate cardiomegaly. Mediastinum: Unremarkable. Bones/joints: Unremarkable. Soft tissues: Moderate chest wall emphysema again seen. IMPRESSION: Significant increase in size of a now moderate right pneumothorax. Apical right chest tube in satisfactory position. Dictated and Authenticated by: Yasmin Licona MD. Ordering:JOSE SIDDIQUI MD
--- NOTE | 2017-08-24 22:45 | PROG.BLANK ---
Date of Service: 08/24/17 Time of Service: 22:45 Progress Note Notified by nursing staff that patient has developed an air leak in his chest tube which is squeaking. Stat CXR obtained and films reviewed. Chest tube appears to be in position with last hole in thoracic cavity. Recurrent right pneumothorax noted. Patient is reportedly comfortable on O2 per NC at rest without any dyspnea or chest pain. Maintaining O2 sats - 95-97%. Suspect continuous air leak may be related to a bleb. Will check CT chest with IV contrast in am. Discussed with patient's nurse via phone.
[2017-08-25] VITALS (34 sets, daily range): BP systolic 120–155; BP diastolic 65–93; PULSE 72–113; RESP 1–22; TEMP 36.1–37; O2SAT 91–100
[2017-08-25] MEDS: CLINDAMYCIN 300 MG/50 ML BAG 100 MG IVPB ×5 (01:03→23:47)
[2017-08-25] MEDS: Heparin 5,000 UNITS/ML VIAL 5000 UNITS SC ×4 (01:07→23:39)
[2017-08-25] MEDS: methylPREDNISolone SUCC 40 MG VIAL IVP ×3 (01:07→19:41)
[2017-08-25] MEDS: Normal Saline Flush 10 ML SYR (01:07)
[2017-08-25] MEDS: Albuterol/Ipratropium 3 ML UPD VIAL UPD ×4 (06:14→23:44)
[2017-08-25] MEDS: Normal Saline Flush 10 ML SYR IVP ×5 (06:26→19:41)
[2017-08-25] MEDS: fentaNYL 100 MCG/2 ML VIAL 50 MCG IVP ×2 (06:26→12:04)
[2017-08-25 06:56] LABS: Abs Immature Grans 0.02 k/cumm (0.0-0.09); Absolute Lymphocyte Count 0.41 k/cumm (1.2-3.4); Absolute Monocyte Count 0.21 k/cumm (0.11-0.7); Absolute Neutrophil Count 9.19 k/cumm (1.2-6.7); HGB 14.3 g/dL (13.5-17.5); Immature Grans % 0.2; Lymphocytes % 4.2; Mean Corp. HGB Concentration 33.3 g/dL (32.0-36.0); Mean Corpuscular Hemoglobin 29.3 pg (27.0-33.0); Mean Corpuscular Volume 88.1 fL (80-95); Mean Platelet Volume 11.6 fL (8.0-11.0); Monocytes % 2.1; Neutrophils % 93.5; Platelet Count 103 x1000/uL (130-400); RBC 4.88 m/cumm (4.50-6.00); RBC Distribution Width 14.6 % (11.8-14.1); White Blood Cell Count 9.83 k/cumm (4.4-10.8)
--- NOTE | 2017-08-25 07:00 | DI.RPTCT_ITS ---
SYMPTOM/DIAGNOSIS: PERSISTENT AIR LEAK, RT PNEUMOTHORAX, H/O COPD CHEST CT: Comparison is made with chest xays from the previous day. Images were performed from the clavicles through the level of the adrenals without IV contrast due to elevated creatinine. A right sided chest tube enters from the lateral aspect of the mid right chest and extends medially to the right lung apex at the mediastinum. There are a few air bubbles within the fat of the superior mediastinum. Air is seen outside of the chest wall as well. There is pleural calcification seen posteriorly at the right lung base. There are also underlying changes of paraseptal and centrilobular emphysema, greatest at the upper lobes. There is mild right basilar atelectasis and some dependent changes at the left lung base. No left pleural effusion is seen. There is no pericardial effusion. There are old right rib fractures. No acute rib fractures are seen. Degenerative changes are noted in the thoracic spine. There is calcification of the aorta and coronary arteries with no evidence of an aneurysm. The liver has a somewhat nodular appearance which could indicate cirrhosis. The pancreas appears atrophic. IMPRESSION: The chest tube is positioned in the right apical mediastinal fat. There is a moderate sized right pneumothorax. There is significant underlying changes of paraseptal and centrilobular emphysema. Pleural calcification is also seen on the right.
[2017-08-25 07:14] LABS: ALT 21 U/L (12-78); AST 21 U/L (15-37); Albumin 3.3 g/dL (3.4-5.0); Alkaline Phosphatase 102 U/L (46-116); Anion Gap 6.8 mmol/L (3-11); BUN 26 mg/dL (7-18); Bilirubin, Total 0.5 mg/dL (0.2-1.0); CO2 27.2 mmol/L (21.0-32.0); CREATININE 1.35 mg/dL (0.70-1.30); Calcium 8.9 mg/dL (8.5-10.1); Chloride 102 mmol/L (98-107); Estimated GFR 52.72 (mL/min/1.73m2); Glucose 222 mg/dL (70-100); Potassium 4.7 mmol/L (3.5-5.1); Sodium 136 mmol/L (136-145); Total Protein 7.5 g/dL (6.4-8.2)
[2017-08-25] MEDS: Insulin Aspart 300 UNITS/3 ML PEN SC ×3 (07:51→17:15)
[2017-08-25] MEDS: Pantoprazole 40 MG VIAL IVP (07:59)
[2017-08-25] MEDS: Metoprolol 50 MG TAB PO ×2 (07:59→19:42)
[2017-08-25 08:12] LABS: Magnesium 2.2 mg/dL (1.8-2.4)
[2017-08-25] MEDS: Metoprolol 12.5 MG TAB PO ×2 (09:26→19:40)
--- NOTE | 2017-08-25 10:25 | HPE_ITS ---
DATE OF ADMISSION: August 24, 2017 CHIEF COMPLAINT: Acute shortness of breath while mowing the lawn. ASSESSMENT: 67-year-old gentleman with spontaneous right pneumothorax treated with chest tube, improved, but the patient has atrial fibrillation now with rapid ventricular response with no chest pain or evidence of angina, and slight COPD exacerbation, being a continuous smoker. PLAN: 1. Admit to ICU for cardiac monitoring. 2. Continue Diltiazem drip. Convert to oral therapy as tolerated. 3. Trend cardiac enzymes. 4. Continue this cardiac monitoring. 5. O2 supplement as needed. 6. Treat COPD exacerbation with Solu-Medrol and nebulizers more frequently. 7. At this time no antibiotics are indicated. 8. Glucometer's a.c. and h.s. with coverage with follow-up on hemoglobin A1c and diabetic teaching if he is diabetic. Steroids may make this worse acutely, but the A1c will give us evidence of his gluc ose measurements over the last three months. 9. He is a FULL CODE; this will be respected. ++++++++++++++++++ HISTORY OF PRESENT ILLNESS: This is a 67-year-old gentleman, recovered alcoholic, but continuing to smoke, who was mowing his lawn on the day of admission when he had dyspnea upon exertion walking up t he hill. This was a sudden onset and unusual and he called EMS for transport to the Emergency Room. He was hypoxic upon admission to the ER and found to have decreased breath sounds over his right side , with a history of a spontaneous pneumothorax on the right about a year ago. He had a confirmed pne umothorax, which eventually was treated with a chest tube with a surgical consultation in the ER. Th e surgical consultation will continue. He has chronic pain and is on high-dose morphine at 130 mg three times a day, recently decreased to t wice a day, for chronic knee pain. He has had surgeries over his left knee almost six times and had sepsis with the prosthesis with surgery this last fall. During his preop evaluation for a repeat manpreet gabby on his left TKA he was found to have atrial fibrillation, but the rate was controlled, and he wa s placed on Eliquis. He was on nothing for rate control, and in the Emergency Room with his stress, his pulse was fast with atrial fibrillation, and he was also hypertensive. He was started on a Dilti azvinny torresip in the Emergency Room and this was continued in his ICU placement. He may have had also a slight exacerbation of his COPD. At home he was not on inhalers or treatment for his COPD. His smoking has been off and on and presently he smokes one pack per day. He did rece blessing Solu-Medrol and nebulizers with O2 supplement in the ER and this will be continued. PERTINENT REVIEW OF SYSTEMS: The patient is chronically ill with chronic pain and his knees would bother him, especially the left knee, status post TKA's bilaterally. He is deconditioned overall, and is a retired contractor. He denies any GI complaints. He did have chest pain with his pneumothorax, but has never had angina. He denied any focalized neurological complaints. Pertinent review of systems otherwise unrevealing. The patient has had no bleeding on Eliquis. PAST MEDICAL HISTORY: 1. Severe arthritis status post TKA once on the right and six different surgeries on the left with co mplications with a septic knee. He is chronically on Doxycycline daily for his infection and this se ems to work. 2. Alcoholic, recovered since 2007. 3. Tobacco abuse. Still smoking one pack per day with elements of COPD, on no inhalers chronically. 4. Depression with insomnia. 5. Bee sting allergies with the patient carrying an EpiPen. 6. Hypertension, on Amlodipine. 7. Acute renal failure requiring dialysis for short time whenever he had a septic knee in the past. He presently has CKD, but does not require dialysis. PAST SURGICAL HISTORY: 1. Knee surgery, as above, otherwise negative. ALLERGIES: 1. Spironolactone. 2. Bee pollen as well as bee stings. HOME MEDICATIONS: 1. Morphine ER 100 mg with morphine IR 30 mg twice a day; he was on three tabs a day with this being decreased recently. 2. Colace 100 mg twice a day. 3. Eliquis 5 mg twice a day. 4. Norvasc 10 mg daily. 5. Tylenol 1000 mg three times a day. 6. EpiPen 0.3 mg as needed. 7. Doxycycline 50 mg once a day, even though it says twice a day, he has gone to once a day because o f intolerance at a higher dose. 8. Seroquel 100 mg q.h.s., as needed for sleep. FAMILY HISTORY: Positive for colon cancer and drug abuse in his brothers. PERSONAL PROFILE. Patient is a contractor, retired. He is not disabled. He used alcohol heavily up to 2007. He smokes one pack per day and has smoked since a teenager with on and off quitting. He is a FULL CODE. Full review of systems as above, otherwise unrevealing. PHYSICAL EXAM: Blood pressure was elevated in the Emergency Room and when he was first admitted it was 162/82; as he was on Diltiazem, repeat was 125/75; pulse was high at over 100, but 99 to 98 on Diltiazem; heart ra te monitor did show up as high as 137, but it was down to 86 on Diltiazem. Respiratory rate 24 to 18 ; the patient improved with the chest tube; pulse oximeter was at 89%, 95% on O2 two liters per nasal cannula; before his chest tube was placed it was 89% on 4 liters of O2 per nasal cannula. Weight is 106.6 kg, height 1.78 meters. GENERAL: The patient appears older than stated age of 67; alert and oriented x3; moderate distress f rom the discomfort from his chest tube. He does also have chronic pain. He is on Fentanyl IV interm ittently for pain control. HEENT: Normocephalic. Eyes normal with pupils equal and reactive to light symmetrically; extraocula r movement intact; sclerae anicteric. Ears normal. Oropharynx with slightly dry oral mucosa. NECK: Supple; no JVD. LUNGS: Decreased aeration over the right with subcutaneous crepitus with a chest tube on the right. Bronchovesicular breath sounds with increased expiratory phase and expiratory wheeze on the left; no focalizing rales but coarse rhonchi. BACK: Stooped posture; no CVA tenderness. HEART: Irregularly irregular rhythm; no appreciable murmurs or gallops. ABDOMEN: Obese, soft and nontender; bowel sounds positive. GENITALIA AND RECTAL EXAM: Deferred. EXTREMITIES: Chronic edema over the lower extremities with skin changes from sun damage and venous s tasis. Left knee is deformed more than the right; both have scars over the extensor surfaces over th e patella; there is no palpable effusion. Peripheral pulses decreased but intact. Good capillary re fill. SKIN: Warm and dry; actinic changes diffusely and some venous stasis changes with loss of hair over the lower extremities, as mentioned. NEURO: No focalizing motor deficits; cranial nerves II-XII grossly intact. LAB REVIEW: Sodium is 136, potassium 3.8, PCO2 28.2, BUN 24, creatinine 1.68, with the patient having chronic CKD ; glucose 263 with the patient not having a history of diabetes, with a hemoglobin A1c ordered and gl ucometer a.c. and h.s should be done with coverage. Magnesium 1.7, the patient received magnesium IV , calcium 8.8, total bilirubin and liver functions were normal. Troponin was <0.02; this will be run serially with his AFib. Total protein 7.8, albumin 3.6, TSH was ordered. White count 5.75, H/H 14.7/44.4; MCV is 88.1, platelet count low at 105,000 (with the patient's previ ous alcohol use he may have cirrhosis). Chest x-ray - right pneumothorax with improvement after chest tube placement.
--- NOTE | 2017-08-25 10:25 | NUR.NOTE ---
Nursing Note: Pt transferred from ICU room 219 to MS room 209 at 0935. Pt ambulated with O2 and chest tube and two RN accompaniment. VSS, Pt oriented to room, bed alarm in place. Chest tube placed to 20 cm of water suction, does have slight bubbling due to leak. Pt is to have chest CT to confirm placement and next step.
--- NOTE | 2017-08-25 11:41 | NUR.NOTE ---
Nursing Note: Denver Malloy from the [facility] called in response to my message to Dr. Caraballo stating Dr. Caraballo was unaware chest tube was falling out - I did not mention this in my message; I only reported the patient's recent drop in O2Sat and increased work of breathing- ICU reported at AM meeting that Dr. Deleon was aware that only one hole at the end of the chest tube was still correctly placed. ICU reported that a CXR was done last night in response to the chest tube being dislodged.
--- NOTE | 2017-08-25 12:23 | DI.REPORT_ITS ---
SYMPTOMS/DIAGNOSIS: TRAUMA, PTX PORTABLE CHEST: Comparison is made with [id number]. There has been no visible change in the chest tube position which lies at the medial aspect of the right lung apex. There has also been no significant change in the size of the moderate right pneumothorax when compared with the most recent exam of [id number] at 10:30 p.m. There is respiratory motion limiting evaluation of the lung yost. IMPRESSION: Stable position of chest tube and size of right pneumothorax.
[2017-08-25] MEDS: Nicotine 14 MG/24 HR PATCH TD (14:22)
--- NOTE | 2017-08-25 15:22 | PGE_ITS ---
PROGRESS NOTE DATE: August 25, 2017 @ 1114 hours ASSESSMENT/PLAN: 1. Spontaneous pneumothorax. Recurrence of a spontaneous pneumothorax in patient with apparent blebs by prior imaging, and underlying chronic obstructive pulmonary disease and a history of tobacco use. Chest tube is in place and currently to suction, with plans for a water seal. However the patient has managed to pull his tube out somewhat, necessitating re-evaluation by Surgery. He is due for a C T of the chest today. Continue pain control and supplemental oxygen. 2. AFib. Atrial fibrillation somewhat recently diagnosed, with patient presenting to the Emergency D epartment without any antoinette agents. Rapid ventricular response is very likely on the basis of hypoxi a and acute onset of a spontaneous pneumothorax. Patient initially required Diltiazem drip, disconti nue yesterday afternoon with beta son initiated. Heart rate appears to be improved, but not yet ideal. Will increase beta son dose. Eliquis currently on hold and will soon be reinstated follo wing discussion with Surgery. 3. Hypertension. Amlodipine on hold. Continue beta son therapy as above. 4. COPD. Currently on some Solu-Medrol secondary to wheezing at time of presentation, which have imp roved. Will wean steroids today and continue inhaler therapy as needed. 5. Chronic pain. Continue home regimen rather high-dose narcotic therapy. Patient is also receiving IV Fentanyl, with plans to wean and discontinue soon as able. 6. Acute kidney injury. Currently improving with IV fluid resuscitation. Continue to monitor carefu lly. Avoid nephrotoxins. 7. Prophylaxis. Continue SCD's for now, Heparin subcu and consider reinitiation of Eliquis soon. Co ntinue PPI therapy. +++++++++++++++++++ SUBJECTIVE: 67-year-old man with a past medical history significant for COPD, prior alcohol abuse no w in remission, and prior history of spontaneous pneumothorax, [facility] with evidence of a large right-sided pneumothorax. Mr. George presented initially with symptoms of dyspnea with exertion, specifically when mowing his la wn and walking that morning. The change was acute, prompting him to call EMS for transportation to the Emergency Department. Upon evaluation he was found to have a large pneumothorax on the right wit h some signs of tension pneumothorax by imaging. Surgery was consulted and placed a chest tube succe ssfully. He has remained with chest tube to suction since that time and this morning feels some impr ovement. His pain also appears to have improved somewhat since yesterday. PHYSICAL EXAM: GENERAL: Patient appears much more comfortable this morning, lying in bed, no acute distress noted. VITALS: Temperature 36.9 and afebrile, blood pressure 120/81, heart rate 86 with a range mostly in t he 80's to one-teens, respiratory rate 20, pulse oximetry 92% on 4 liters. NECK: Supple. CV: Irregularly irregular; non-tachycardic at time of exam. PULMONARY: Decreased right-sided breath sounds, clear on the left. ABDOMEN: Bowel sounds present; it's soft, nontender, nondistended. Umbilical hernia noted. VASCULAR: Mild bilateral lower extremity edema. LABS: Sodium, potassium, chloride and bicarb are all normal. BUN 26, creatinine improved to 1.35 fr om original value of 1.68, baseline value being approximately 1. LFT's are normal. CBC with a normal white count and hemoglobin. Platelet count low but appears to be at or around lars ent's prior baseline.
--- NOTE | 2017-08-25 15:44 | PDOC.CMPRO ---
Care Management Progress Note S/O: Brenton was lying in bed when CM met with him. He reported had had been mowing his yard with a push mower and had to rest every five minutes; he attributes this to his COPD exacerbation, AFIB and pneumothorax. CM started with a general check-in and then began assessing further needs; it was at this point that Brenton became weepy and stated I'm going to have to hire a live-in. His significant other was in the room and was re-assuring him that he would be ok. CM reviewed community based supports and Brenton agreed to a [facility] referral for [facility]. CM will continue to support discharge planning considerations. A: 67 year old male admitted to [facility] 08/24/17 with Acute Pneumothorax, AFIB w/RVR, Acute COPD P: Brenton will discharge home when ready per MD. He will have a new referral for [facility]ing through [facility]. Brenton will be evaluated for further needs prior to discharge, and transport home via private vehicle with his significant other.
--- NOTE | 2017-08-25 16:00 | CMPROGNOTE_ITS ---
Care Management Progress Note S/O: Brenton was lying in bed when CM met with him. He reported had had been mowing his yard with a push mower and had to rest every five minutes; he attributes this to his COPD exacerbation, AFIB and pneumothorax. CM started with a general check-in and then began assessing further needs; it was at this point that Brenton became weepy and stated I'm going to have to hire a live-in. His significant other was in the room and was re-assuring him that he would be ok. CM reviewed community based supports and Brenton agreed to a [facility] referral for Options Counselor. CM will continue to support discharge planning considerations. A: 67 year old male admitted to [facility] 08/24/17 with Acute Pneumothorax, AFIB w/RVR , Acute COPD P: Brenton will discharge home when ready per MD. He will have a new referral for [facility] through [facility]. Brenton will be evaluated for further needs prior to discharge, and transport home via private vehicle with his significant other.
--- NOTE | 2017-08-25 17:40 | PDOC.PROG ---
Date of Service: 08/25/17 Time of Service: 17:40 Assessment/Plan - Assessment/Plan (1) Spontaneous pneumothorax Assessment: Still with a moderate pnuemothorax despite chest tube being in good position. multiple CXR have been taken and all show good position of the chest tube. Dressings taken down. Chest tube was kinked and there is a whisling sound coming from the tubing that attaches the pleurovac to the chest tube. Pleurovac changed. Less noise noted Plan: CXR in am. If thom is still not completely expanded may need to place a new chest tube. History of Present Illness - History of Present Illness Chief Complaint: PAD #1 s/p chest tube placement History of Present Illness: Doing ok. O2 down to 2 L NC. Not feeling short of breath Complains of feeling like he is withdrawing. He has not had his Morphine 130 mg BID since admission Review of Systems - Medications/Allergies Allergies/Adverse Reactions: Allergies Allergy/AdvReac Type Severity Reaction Status Date / Time spironolactone Allergy Unknown Unverified 08/24/17 01:26 bee pollen Allergy Unverified 08/24/17 01:26 Medications: Current Medications Acetaminophen (Tylenol) 0 mg PO Q4H PRN PRN Al Hydrox/Mg Hydrox/Simethicone (Mylanta Liquid) 30 ml PO Q2H PRN PRN Albuterol Sulfate (Proventil Updraft) 2.5 mg UPD Q2H PRN PRN Albuterol/Ipratropium (Duoneb Updraft) 3 ml UPD Q6H [facility] Last Admin: 08/25/17 12:01 Dose: 3 ml Dextrose (Insta-Glucose) 0 gm PO DIRECTED PRN Dextrose/Water () 0 gm IVP DIRECTED PRN Dimethicone/Zinc Oxide (Jamie Protect Cream) 0 gm TP PRN PRN Docusate Sodium (Colace) 100 mg PO TID PRN PRN Fentanyl Citrate (Sublimaze) 50 mcg IVP Q3H PRN PRN Last Admin: 08/25/17 12:04 Dose: 50 mcg Heparin Sodium (Porcine) () 5,000 units SC Q8H [facility] Last Admin: 08/25/17 16:19 Dose: 5,000 units Diltiazem HCl 100 mg/ Sodium (Chloride) 100 mls @ 5 mls/hr IV INFUSION [facility] PRN Reason: Protocol Last Titration: 08/24/17 15:00 Dose: 0 mg/hr, 0 mls/hr Clindamycin Phosphate/Dextrose (Cleocin In D5w) 300 mg in 50 mls @ 100 mls/hr IVPB Q6H [facility] Last Admin: 08/25/17 17:15 Dose: 100 mls/hr Insulin Aspart (Novolog Flexpen) 0 units SC 0800,1200,1700 [facility] PRN Reason: Protocol Last Admin: 08/25/17 17:15 Dose: 3 units Magnesium Hydroxide (Milk Of Magnesia) 30 ml PO DAILY PRN PRN Methylprednisolone Sodium Succinate (Solu-Medrol) 40 mg IVP Q12H [facility] Metoprolol Tartrate (Lopressor) 50 mg PO BID [facility] Last Admin: 08/25/17 07:59 Dose: 50 mg Metoprolol Tartrate (Lopressor) 12.5 mg PO BID [facility] Last Admin: 08/25/17 09:26 Dose: 12.5 mg Nicotine (Nicoderm Cq) 14 mg TD DAILY@1400 [facility] Last Admin: 08/25/17 14:22 Dose: 14 mg Pantoprazole Sodium (Protonix Injection) 40 mg IVP DAILY [facility] Last Admin: 08/25/17 07:59 Dose: 40 mg Doxycycline Hyclate (50 Mg) 0 each PO BID [facility] Last Admin: 08/25/17 09:00 Dose: Not Given Polyethylene Glycol (Miralax) 17 gm PO DAILY PRN PRN PRN Reason: Constipation Quetiapine Fumarate (Seroquel) 100 mg PO HS PRN PRN Sodium Chloride (Saline Flush 10 Ml Syringe-Sterile Field) 10 ml IVP PRN PRN Sodium Chloride (Saline Flush 10 Ml Syringe) 10 ml IVP PRN PRN Last Admin: 08/25/17 17:14 Dose: 20 ml Objective - Exam Vitals and I&O: Vital Signs Temp 36.6 C 08/25/17 16:22 Pulse 84 08/25/17 16:22 Resp 19 08/25/17 16:22 BP 144/88 08/25/17 16:22 Pulse Ox 100 08/25/17 16:22 Intake & Output 08/24/17 08/25/17 08/25/17 23:59 11:59 23:59 Intake Total 8814.283 9923 210 Output Total 310 855 Balance 1612.333 913 210 Weight 105.9 kg Intake: IV 1286.333 648 90 Oral 636 1120 120 Output: Chest Tube Drainage 10 30 Urine 300 825 Other: Urine Color Yellow Straw Urine Appearance Clear Clear Urine Odor Normal Comment stands to void using urinal. Pt voided moderate amount in toilet independently. Voiding Methods Urinal Toilet General: Alert, Oriented x3, Cooperative, No acute distress Lungs: Other ( air entry on the right) Cardiovascular: Other (afib) Abdomen: Normal bowel sounds, Soft Psych/Mental Status: Mental status NL - Results Results: Laboratory Results WBC 9.83 k/cumm (4.4-10.8) 08/25/17 06:10 RBC 4.88 m/cumm (4.50-6.00) 08/25/17 06:10 Hgb 14.3 g/dL (13.5-17.5) 08/25/17 06:10 Hct 43.0 % (40.0-50.0) 08/25/17 06:10 MCV 88.1 fL (80-95) 08/25/17 06:10 MCH 29.3 pg (27.0-33.0) 08/25/17 06:10 MCHC 33.3 g/dL (32.0-36.0) 08/25/17 06:10 RDW 14.6 % (11.8-14.1) H 08/25/17 06:10 Plt Count 103 x1000/uL (130-400) L 08/25/17 06:10 MPV 11.6 fL (8.0-11.0) H 08/25/17 06:10 Immature Gran % 0.2 08/25/17 06:10 Neutrophils % 93.5 08/25/17 06:10 Lymphocytes % 4.2 08/25/17 06:10 Monocytes % 2.1 08/25/17 06:10 Eosinophils % 0.0 08/25/17 06:10 Basophils % 0.0 08/25/17 06:10 Absolute Neutrophils 9.19 k/cumm (1.2-6.7) H 08/25/17 06:10 Absolute Lymphocytes 0.41 k/cumm (1.2-3.4) L 08/25/17 06:10 Absolute Monocytes 0.21 k/cumm (0.11-0.7) 08/25/17 06:10 Absolute Eosinophils 0.00 k/cumm (0.0-0.7) 08/25/17 06:10 Absolute Basophils 0.00 k/cumm (0.0-0.2) 08/25/17 06:10 Sodium 136 mmol/L (136-145) 08/25/17 06:10 Potassium 4.7 mmol/L (3.5-5.1) D 08/25/17 06:10 Chloride 102 mmol/L (98-107) 08/25/17 06:10 Carbon Dioxide 27.2 mmol/L (21.0-32.0) 08/25/17 06:10 Anion Gap 6.8 mmol/L (3-11) 08/25/17 06:10 BUN 26 mg/dL (7-18) H 08/25/17 06:10 Creatinine 1.35 mg/dL (0.70-1.30) H 08/25/17 06:10 Estimated GFR/1.73 m2 52.72 (mL/min/1.73m2) 08/25/17 06:10 Glucose 222 mg/dL (70-100) H 08/25/17 06:10 Hemoglobin A1c 7.2 % (4.5-6.2) H 08/24/17 10:20 Calcium 8.9 mg/dL (8.5-10.1) 08/25/17 06:10 Magnesium 2.2 mg/dL (1.8-2.4) 08/25/17 06:10 Total Bilirubin 0.5 mg/dL (0.2-1.0) 08/25/17 06:10 Conjugated Bilirubin 0.14 mg/dL (0.00-0.20) 08/24/17 01:25 AST 21 U/L (15-37) 08/25/17 06:10 ALT 21 U/L (12-78) 08/25/17 06:10 Alkaline Phosphatase 102 U/L (46-116) 08/25/17 06:10 Troponin I 0.02 ng/mL (0.00-0.06) 08/24/17 18:05 Total Protein 7.5 g/dL (6.4-8.2) 08/25/17 06:10 Albumin 3.3 g/dL (3.4-5.0) L 08/25/17 06:10 TSH 1.28 uIU/mL (0.358-3.74) 08/24/17 10:20
--- NOTE | 2017-08-25 17:56 | PDOC.PROG_ITS ---
Date of Service: 08/25/17 Time of Service: 17:40 Assessment/Plan - Assessment/Plan (1) Spontaneous pneumothorax Assessment: Still with a moderate pnuemothorax despite chest tube being in good position. multiple CXR have been taken and all show good position of the chest tube. Dressings taken down. Chest tube was kinked and there is a whisling sound coming from the tubing that attaches the pleurovac to the chest tube. Pleurovac changed. Less noise noted Plan: CXR in am. If thom is still not completely expanded may need to place a new chest tube. History of Present Illness - History of Present Illness Chief Complaint: PAD #1 s/p chest tube placement History of Present Illness: Doing ok. O2 down to 2 L NC. Not feeling short of breath Complains of feeling like he is withdrawing. He has not had his Morphine 130 mg BID since admission Review of Systems - Medications/Allergies Allergies/Adverse Reactions: Allergies Allergy/AdvReac Type Severity Reaction Status Date / Time spironolactone Allergy Unknown Unverified 08/24/17 01:26 bee pollen Allergy Unverified 08/24/17 01:26 Medications: Current Medications Acetaminophen (Tylenol) 0 mg PO Q4H PRN PRN Al Hydrox/Mg Hydrox/Simethicone (Mylanta Liquid) 30 ml PO Q2H PRN PRN Albuterol Sulfate (Proventil Updraft) 2.5 mg UPD Q2H PRN PRN Albuterol/Ipratropium (Duoneb Updraft) 3 ml UPD Q6H [facility] Last Admin: 08/25/17 12:01 Dose: 3 ml Dextrose (Insta-Glucose) 0 gm PO DIRECTED PRN Dextrose/Water () 0 gm IVP DIRECTED PRN Dimethicone/Zinc Oxide (Jamie Protect Cream) 0 gm TP PRN PRN Docusate Sodium (Colace) 100 mg PO TID PRN PRN Fentanyl Citrate (Sublimaze) 50 mcg IVP Q3H PRN PRN Last Admin: 08/25/17 12:04 Dose: 50 mcg Heparin Sodium (Porcine) () 5,000 units SC Q8H [facility] Last Admin: 08/25/17 16:19 Dose: 5,000 units Diltiazem HCl 100 mg/ Sodium (Chloride) 100 mls @ 5 mls/hr IV INFUSION [facility] PRN Reason: Protocol Last Titration: 08/24/17 15:00 Dose: 0 mg/hr, 0 mls/hr Clindamycin Phosphate/Dextrose (Cleocin In D5w) 300 mg in 50 mls @ 100 mls/hr IVPB Q6H [facility] Last Admin: 08/25/17 17:15 Dose: 100 mls/hr Insulin Aspart (Novolog Flexpen) 0 units SC 0800,1200,1700 [facility] PRN Reason: Protocol Last Admin: 08/25/17 17:15 Dose: 3 units Magnesium Hydroxide (Milk Of Magnesia) 30 ml PO DAILY PRN PRN Methylprednisolone Sodium Succinate (Solu-Medrol) 40 mg IVP Q12H [facility] Metoprolol Tartrate (Lopressor) 50 mg PO BID [facility] Last Admin: 08/25/17 07:59 Dose: 50 mg Metoprolol Tartrate (Lopressor) 12.5 mg PO BID [facility] Last Admin: 08/25/17 09:26 Dose: 12.5 mg Nicotine (Nicoderm Cq) 14 mg TD DAILY@1400 [facility] Last Admin: 08/25/17 14:22 Dose: 14 mg Pantoprazole Sodium (Protonix Injection) 40 mg IVP DAILY [facility] Last Admin: 08/25/17 07:59 Dose: 40 mg Doxycycline Hyclate (50 Mg) 0 each PO BID [facility] Last Admin: 08/25/17 09:00 Dose: Not Given Polyethylene Glycol (Miralax) 17 gm PO DAILY PRN PRN PRN Reason: Constipation Quetiapine Fumarate (Seroquel) 100 mg PO HS PRN PRN Sodium Chloride (Saline Flush 10 Ml Syringe-Sterile Field) 10 ml IVP PRN PRN Sodium Chloride (Saline Flush 10 Ml Syringe) 10 ml IVP PRN PRN Last Admin: 08/25/17 17:14 Dose: 20 ml Objective - Exam Vitals and I&O: Vital Signs Temp 36.6 C 08/25/17 16:22 Pulse 84 08/25/17 16:22 Resp 19 08/25/17 16:22 BP 144/88 08/25/17 16:22 Pulse Ox 100 08/25/17 16:22 Intake & Output 08/24/17 08/25/17 08/25/17 23:59 11:59 23:59 Intake Total 4434.738 3416 210 Output Total 310 855 Balance 1612.333 913 210 Weight 105.9 kg Intake: IV 1286.333 648 90 Oral 636 1120 120 Output: Chest Tube Drainage 10 30 Urine 300 825 Other: Urine Color Yellow Straw Urine Appearance Clear Clear Urine Odor Normal Comment stands to void using urinal. Pt voided moderate amount in toilet independently. Voiding Methods Urinal Toilet General: Alert, Oriented x3, Cooperative, No acute distress Lungs: Other ( air entry on the right) Cardiovascular: Other (afib) Abdomen: Normal bowel sounds, Soft Psych/Mental Status: Mental status NL - Results Results: Laboratory Results WBC 9.83 k/cumm (4.4-10.8) 08/25/17 06:10 RBC 4.88 m/cumm (4.50-6.00) 08/25/17 06:10 Hgb 14.3 g/dL (13.5-17.5) 08/25/17 06:10 Hct 43.0 % (40.0-50.0) 08/25/17 06:10 MCV 88.1 fL (80-95) 08/25/17 06:10 MCH 29.3 pg (27.0-33.0) 08/25/17 06:10 MCHC 33.3 g/dL (32.0-36.0) 08/25/17 06:10 RDW 14.6 % (11.8-14.1) H 08/25/17 06:10 Plt Count 103 x1000/uL (130-400) L 08/25/17 06:10 MPV 11.6 fL (8.0-11.0) H 08/25/17 06:10 Immature Gran % 0.2 08/25/17 06:10 Neutrophils % 93.5 08/25/17 06:10 Lymphocytes % 4.2 08/25/17 06:10 Monocytes % 2.1 08/25/17 06:10 Eosinophils % 0.0 08/25/17 06:10 Basophils % 0.0 08/25/17 06:10 Absolute Neutrophils 9.19 k/cumm (1.2-6.7) H 08/25/17 06:10 Absolute Lymphocytes 0.41 k/cumm (1.2-3.4) L 08/25/17 06:10 Absolute Monocytes 0.21 k/cumm (0.11-0.7) 08/25/17 06:10 Absolute Eosinophils 0.00 k/cumm (0.0-0.7) 08/25/17 06:10 Absolute Basophils 0.00 k/cumm (0.0-0.2) 08/25/17 06:10 Sodium 136 mmol/L (136-145) 08/25/17 06:10 Potassium 4.7 mmol/L (3.5-5.1) D 08/25/17 06:10 Chloride 102 mmol/L (98-107) 08/25/17 06:10 Carbon Dioxide 27.2 mmol/L (21.0-32.0) 08/25/17 06:10 Anion Gap 6.8 mmol/L (3-11) 08/25/17 06:10 BUN 26 mg/dL (7-18) H 08/25/17 06:10 Creatinine 1.35 mg/dL (0.70-1.30) H 08/25/17 06:10 Estimated GFR/1.73 m2 52.72 (mL/min/1.73m2) 08/25/17 06:10 Glucose 222 mg/dL (70-100) H 08/25/17 06:10 Hemoglobin A1c 7.2 % (4.5-6.2) H 08/24/17 10:20 Calcium 8.9 mg/dL (8.5-10.1) 08/25/17 06:10 Magnesium 2.2 mg/dL (1.8-2.4) 08/25/17 06:10 Total Bilirubin 0.5 mg/dL (0.2-1.0) 08/25/17 06:10 Conjugated Bilirubin 0.14 mg/dL (0.00-0.20) 08/24/17 01:25 AST 21 U/L (15-37) 08/25/17 06:10 ALT 21 U/L (12-78) 08/25/17 06:10 Alkaline Phosphatase 102 U/L (46-116) 08/25/17 06:10 Troponin I 0.02 ng/mL (0.00-0.06) 08/24/17 18:05 Total Protein 7.5 g/dL (6.4-8.2) 08/25/17 06:10 Albumin 3.3 g/dL (3.4-5.0) L 08/25/17 06:10 TSH 1.28 uIU/mL (0.358-3.74) 08/24/17 10:20
[2017-08-25] MEDS: Doxycycline Hyclate 50 MG PO (19:39)
[2017-08-26] VITALS (10 sets, daily range): BP systolic 133–157; BP diastolic 91–99; PULSE 80–100; RESP 8–22; TEMP 36.6–36.8; O2SAT 88–97
[2017-08-26] MEDS: CLINDAMYCIN 300 MG/50 ML BAG 100 MG IVPB ×2 (06:49→11:33)
[2017-08-26] MEDS: Normal Saline Flush 10 ML SYR IVP ×4 (06:49→19:46)
[2017-08-26] MEDS: Albuterol/Ipratropium 3 ML UPD VIAL UPD ×4 (06:50→22:52)
[2017-08-26 07:29] LABS: Abs Immature Grans 0.02 k/cumm (0.0-0.09); Absolute Monocyte Count 0.28 k/cumm (0.11-0.7); Absolute Neutrophil Count 9.07 k/cumm (1.2-6.7); HCT 43.1 % (40.0-50.0); HGB 14.5 g/dL (13.5-17.5); Immature Grans % 0.2; Lymphocytes % 4.1; Mean Corp. HGB Concentration 33.6 g/dL (32.0-36.0); Mean Corpuscular Hemoglobin 29.7 pg (27.0-33.0); Mean Corpuscular Volume 88.3 fL (80-95); Mean Platelet Volume 11.8 fL (8.0-11.0); Monocytes % 2.9; Neutrophils % 92.8; Platelet Count 112 x1000/uL (130-400); RBC 4.88 m/cumm (4.50-6.00); RBC Distribution Width 14.7 % (11.8-14.1); White Blood Cell Count 9.77 k/cumm (4.4-10.8)
[2017-08-26 07:45] LABS: Anion Gap 7.8 mmol/L (3-11); BUN 35 mg/dL (7-18); CO2 27.2 mmol/L (21.0-32.0); CREATININE 1.31 mg/dL (0.70-1.30); Calcium 9.2 mg/dL (8.5-10.1); Chloride 102 mmol/L (98-107); Estimated GFR 54.58 (mL/min/1.73m2); Glucose 204 mg/dL (70-100); Magnesium 2.1 mg/dL (1.8-2.4); Potassium 4.5 mmol/L (3.5-5.1); Sodium 137 mmol/L (136-145)
[2017-08-26] MEDS: methylPREDNISolone SUCC 40 MG VIAL IVP ×2 (07:59→19:47)
[2017-08-26] MEDS: Pantoprazole 40 MG VIAL IVP (07:59)
[2017-08-26] MEDS: Metoprolol 12.5 MG TAB PO ×2 (08:10→19:47)
[2017-08-26] MEDS: Metoprolol 50 MG TAB PO ×2 (08:10→19:47)
[2017-08-26] MEDS: Heparin 5,000 UNITS/ML VIAL 5000 UNITS SC ×3 (08:11→22:52)
[2017-08-26] MEDS: Insulin Aspart 300 UNITS/3 ML PEN SC ×3 (08:12→17:28)
[2017-08-26] MEDS: Doxycycline Hyclate 50 MG PO (08:15)
--- NOTE | 2017-08-26 08:30 | DI.REPORT_ITS ---
SYMPTOM/DIAGNOSIS: F/U PNEUMOTHORAX PORTABLE AP CHEST AT 705 AM: The right sided chest tube appears to have been repositioned, now positioned more superiorly at the right lung apex. There has been some interval reduction in the size of the previously noted right pneumothorax. No new abnormalities are seen.
--- NOTE | 2017-08-26 08:56 | DI.VRAD_ITS ---
EXAM: XR Chest, 1 View EXAM DATE/TIME: 08/26/2017 12:00 AM CLINICAL HISTORY: 67 years old, male; Device placement; Chest tube TECHNIQUE: Frontal view of the chest. COMPARISON: CR - PORTABLE CHEST ONE VIEW 2017-08-25 12:18 FINDINGS: Lungs: Unremarkable. No consolidation. Pleural space: Decreased size of right pneumothorax, maximal pleural separation 3 cm compared to previously 4 cm. Small left pleural effusion. Heart: Unremarkable. No cardiomegaly. Mediastinum: Unremarkable. Bones/joints: No acute abnormality. Soft tissues: Right chest wall soft tissue emphysema without change. Tubes, lines and devices: Right chest tube unchanged in position. IMPRESSION: Decrease size of right pneumothorax. Dictated and Authenticated by: Germania Middleton MD. Ordering:CANDIDA RENTERIA MD
[2017-08-26] MEDS: Normal Saline 1,000 ML 75 ML IV (09:20)
--- NOTE | 2017-08-26 13:13 | PDOC.CMPRO ---
Date of Service: 08/26/17 Time of Service: 13:13 Care Management Progress Note S/O: Pt is lying in bed when this commercial loan underwriter visits, he states that he is feeling alright. Pt states If I need to be here longer I would like a PICC Line. CM discussed this with MD whom will speak with Pt. Discussed DC planning with Pt, Pt states that he feels as though he needs to sell his home and that it will be a lot for him to sell it. Discussed [facility] options counselor which Pt continues to be receptive to. A: 67 year old male admitted to [facility] 08/24/17 with Acute Pneumothorax, AFIB w/RVR, Acute COPD P: Brenton will discharge home when ready per MD. He will have a new referral for Options Counseling through [facility]. Brenton will be evaluated for further needs prior to discharge, and transport home via private vehicle with his significant other.
--- NOTE | 2017-08-26 13:30 | CMPROGNOTE_ITS ---
Date of Service: 08/26/17 Time of Service: 13:13 Care Management Progress Note S/O: Pt is lying in bed when this business writer visits, he states that he is feeling alright. Pt states If I need to be here longer I would like a PICC Line. CM discussed this with MD whom will speak with Pt. Discussed DC planning with Pt, Pt states that he feels as though he needs to sell his home and that it will be a lot for him to sell it. Discussed [facility] options counselor which Pt continues to be receptive to. A: 67 year old male admitted to [facility] 08/24/17 with Acute Pneumothorax, AFIB w/RVR , Acute COPD P: Brenton will discharge home when ready per MD. He will have a new referral for Options Counseling through [facility]. Brenton will be evaluated for further needs prior to discharge, and transport home via private vehicle with his significant other.
[2017-08-26] MEDS: Nicotine 14 MG/24 HR PATCH TD (13:55)
--- NOTE | 2017-08-26 16:46 | PDOC.PROG ---
Date of Service: 08/26/17 Time of Service: 16:46 Assessment/Plan - Assessment/Plan (1) Spontaneous pneumothorax Plan: Chest tube in place. He is being followed by general surgery. General surgery recommends that he be transferred to a tertiary care facility. The chest tube is not fully expanding his lungs, this is his second occurrence of a spontaneous pneumothorax. Calls were placed to [facility] and [facility]. [facility] is full at the present time, they were unable to place him on a list, they requested that we call again tomorrow. [facility] was also full. This is a non-urgent transfer. We will readdress transfer tomorrow. Continue with chest tube, continue to monitor respiratory status. (2) Atrial fibrillation Plan: Rate well controlled on current regimen. Eliquis currently on hold. Will continue to hold Eliquis pending likely transfer. Continue beta son therapy. (3) Hypertension Plan: Well-controlled on current regimen. Continue beta-son therapy. (4) COPD (chronic obstructive pulmonary disease) Plan: He was initially wheezing. Started on IV Solu-Medrol. Steroids currently being weaned, starting yesterday. Continue to monitor and wean steroids. (5) Acute kidney injury Plan: Appears slightly dry today we will give 1 L of normal saline. Recheck BMP in the morning. (6) DVT prophylaxis Plan: Continue SCDs, heparin subcu. Consider reinitiation of Eliquis soon as, currently on hold pending likely transfer. Continue PPI therapy for GI prophylaxis. (7) Chronic pain Plan: Continue home regimen of narcotic therapy. (8) Discharge planning issues Plan: He is a full code. We will reach out to [facility] and [facility] again tomorrow in regard to his transfer. History of Present Illness - History of Present Illness Chief Complaint: Acute pneumothorax History of Present Illness: Brenton is a 67 year old man with a past medical history significant for COPD, prior etoh abuse, and prior history of spontaneous pneumothorax, who is currently being treated for a large right-sided pneumothorax with signs of tension pneumothorax on imaging. General surgery has been consulted and placed a chest tube successfully, which remains in place today. He feels that his symptoms have improved. He no longer feels short of breath, chest pain, pressure, palpitations, pain. He states he is eating and drinking. He is eager for discharge stating that he has things that he needs to do at home. We discussed that general surgery recommends that he be transferred to a facility with thorasic surgery services due to the fact that his lung is not fully expanding even with a chest tube in place and that this is his second occurrence of a spontaneous pneumothorax. He was on clindamycin in place of his home dosing of oral doxycycline, it was requested that he bring is home doxycycline, the clindamycin is discontinued. Review of Systems - Review of Systems Constitutional: denies: Fever, Chills, Sweats, Weakness, Malaise Respiratory: denies: Cough, Shortness of Breath, Wheezing Cardiovascular: denies: Chest Pain, Palpitations, Edema Gastrointestinal: denies: Nausea, Vomiting, Abdominal Pain, Diarrhea, Constipation Genitourinary: denies: Dysuria, Hematuria Skin: denies: Rash, Lesions - Medications/Allergies Allergies/Adverse Reactions: Allergies Allergy/AdvReac Type Severity Reaction Status Date / Time spironolactone Allergy Unknown Unverified 08/24/17 01:26 bee pollen Allergy Unverified 08/24/17 01:26 Medications: Current Medications Acetaminophen (Tylenol) 0 mg PO Q4H PRN PRN Al Hydrox/Mg Hydrox/Simethicone (Mylanta Liquid) 30 ml PO Q2H PRN PRN Albuterol Sulfate (Proventil Updraft) 2.5 mg UPD Q2H PRN PRN Albuterol/Ipratropium (Duoneb Updraft) 3 ml UPD Q6H [facility] Last Admin: 08/26/17 12:26 Dose: 3 ml Dextrose (Insta-Glucose) 0 gm PO DIRECTED PRN Dextrose/Water () 0 gm IVP DIRECTED PRN Dimethicone/Zinc Oxide (Jamie Protect Cream) 0 gm TP PRN PRN Docusate Sodium (Colace) 100 mg PO TID PRN PRN Fentanyl Citrate (Sublimaze) 50 mcg IVP Q4H PRN Heparin Sodium (Porcine) () 5,000 units SC Q8H [facility] Last Admin: 08/26/17 16:39 Dose: 5,000 units Sodium Chloride (Saline 1000ml Bag) 1,000 mls @ 75 mls/hr IV INFUSION [facility] Last Admin: 08/26/17 09:20 Dose: 75 mls/hr Insulin Aspart (Novolog Flexpen) 0 units SC 0800,1200,1700 [facility] PRN Reason: Protocol Last Admin: 08/26/17 11:30 Dose: 3 units Magnesium Hydroxide (Milk Of Magnesia) 30 ml PO DAILY PRN PRN Methylprednisolone Sodium Succinate (Solu-Medrol) 40 mg IVP Q12H [facility] Last Admin: 08/26/17 07:59 Dose: 40 mg Metoprolol Tartrate (Lopressor) 50 mg PO BID [facility] Last Admin: 08/26/17 08:10 Dose: 50 mg Metoprolol Tartrate (Lopressor) 12.5 mg PO BID [facility] Last Admin: 08/26/17 08:10 Dose: 12.5 mg Morphine Sulfate (Msir) 30 mg PO BID [facility] Last Admin: 08/26/17 07:21 Dose: 30 mg Morphine Sulfate (Ms Contin) 90 mg PO BID@0800,2000 [facility] Last Admin: 08/26/17 07:21 Dose: 90 mg Nicotine (Nicoderm Cq) 14 mg TD DAILY@1400 [facility] Last Admin: 08/26/17 13:55 Dose: 14 mg Pantoprazole Sodium (Protonix Injection) 40 mg IVP DAILY [facility] Last Admin: 08/26/17 07:59 Dose: 40 mg Doxycycline Hyclate (50 Mg) 0 each PO BID [facility] Last Admin: 08/26/17 08:15 Dose: 1 each Polyethylene Glycol (Miralax) 17 gm PO DAILY PRN PRN PRN Reason: Constipation Quetiapine Fumarate (Seroquel) 100 mg PO HS PRN PRN Sodium Chloride (Saline Flush 10 Ml Syringe-Sterile Field) 10 ml IVP PRN PRN Sodium Chloride (Saline Flush 10 Ml Syringe) 10 ml IVP PRN PRN Last Admin: 08/26/17 09:20 Dose: 10 ml Objective - Exam Vitals and I&O: Vital Signs Temp 36.7 C 08/26/17 16:27 Pulse 80 08/26/17 16:27 Resp 19 08/26/17 16:27 BP 139/91 08/26/17 16:27 Pulse Ox 93 L 08/26/17 16:27 Intake & Output 08/25/17 08/26/17 08/26/17 23:59 11:59 23:59 Intake Total 600 68 790 Output Total 545 575 225 Balance 55 -507 565 Weight 104.5 kg Intake: IV 190 68 Oral 410 790 Output: Chest Tube Drainage 20 Urine 525 575 225 Other: Urine Color Yellow Light Eva Light Eva Urine Appearance Clear Clear Clear Urine Odor Normal None None Voiding Methods Urinal Urinal Urinal General: Alert, Oriented x3, Cooperative, No acute distress HEENT: Atraumatic, PERRLA, Mucous membr. moist/pink Neck: Supple. denies: JVD Lungs: Clear to auscultation (Diminished on right side, no wheezing, no rales. Left side is clear.), Normal air movement, Other (Chest tube in place.) Cardiovascular: denies: Regular rate (Irregular ), Murmurs Abdomen: Normal bowel sounds, Soft. denies: Tenderness, Masses Extremities: Normal pulses. denies: Clubbing, Cyanosis, Edema, Tenderness/swelling Skin: denies: Rashes Psych/Mental Status: Mental status NL, Mood NL - Results Results: Laboratory Results WBC 9.77 k/cumm (4.4-10.8) 08/26/17 06:50 RBC 4.88 m/cumm (4.50-6.00) 08/26/17 06:50 Hgb 14.5 g/dL (13.5-17.5) 08/26/17 06:50 Hct 43.1 % (40.0-50.0) 08/26/17 06:50 MCV 88.3 fL (80-95) 08/26/17 06:50 MCH 29.7 pg (27.0-33.0) 08/26/17 06:50 MCHC 33.6 g/dL (32.0-36.0) 08/26/17 06:50 RDW 14.7 % (11.8-14.1) H 08/26/17 06:50 Plt Count 112 x1000/uL (130-400) L 08/26/17 06:50 MPV 11.8 fL (8.0-11.0) H 08/26/17 06:50 Immature Gran % 0.2 08/26/17 06:50 Neutrophils % 92.8 08/26/17 06:50 Lymphocytes % 4.1 08/26/17 06:50 Monocytes % 2.9 08/26/17 06:50 Eosinophils % 0.0 08/26/17 06:50 Basophils % 0.0 08/26/17 06:50 Absolute Neutrophils 9.07 k/cumm (1.2-6.7) H 08/26/17 06:50 Absolute Lymphocytes 0.40 k/cumm (1.2-3.4) L 08/26/17 06:50 Absolute Monocytes 0.28 k/cumm (0.11-0.7) 08/26/17 06:50 Absolute Eosinophils 0.00 k/cumm (0.0-0.7) 08/26/17 06:50 Absolute Basophils 0.00 k/cumm (0.0-0.2) 08/26/17 06:50 Sodium 137 mmol/L (136-145) 08/26/17 06:50 Potassium 4.5 mmol/L (3.5-5.1) 08/26/17 06:50 Chloride 102 mmol/L (98-107) 08/26/17 06:50 Carbon Dioxide 27.2 mmol/L (21.0-32.0) 08/26/17 06:50 Anion Gap 7.8 mmol/L (3-11) 08/26/17 06:50 BUN 35 mg/dL (7-18) H D 08/26/17 06:50 Creatinine 1.31 mg/dL (0.70-1.30) H 08/26/17 06:50 Estimated GFR/1.73 m2 54.58 (mL/min/1.73m2) 08/26/17 06:50 Glucose 204 mg/dL (70-100) H 08/26/17 06:50 Hemoglobin A1c 7.2 % (4.5-6.2) H 08/24/17 10:20 Calcium 9.2 mg/dL (8.5-10.1) 08/26/17 06:50 Magnesium 2.1 mg/dL (1.8-2.4) 08/26/17 06:50 Total Bilirubin 0.5 mg/dL (0.2-1.0) 08/25/17 06:10 Conjugated Bilirubin 0.14 mg/dL (0.00-0.20) 08/24/17 01:25 AST 21 U/L (15-37) 08/25/17 06:10 ALT 21 U/L (12-78) 08/25/17 06:10 Alkaline Phosphatase 102 U/L (46-116) 08/25/17 06:10 Troponin I 0.02 ng/mL (0.00-0.06) 08/24/17 18:05 Total Protein 7.5 g/dL (6.4-8.2) 08/25/17 06:10 Albumin 3.3 g/dL (3.4-5.0) L 08/25/17 06:10 TSH 1.28 uIU/mL (0.358-3.74) 08/24/17 10:20
--- NOTE | 2017-08-26 16:49 | PDOC.PROG_ITS ---
Date of Service: 08/26/17 Time of Service: 16:46 Assessment/Plan - Assessment/Plan (1) Spontaneous pneumothorax Plan: Chest tube in place. He is being followed by general surgery. General surgery recommends that he be transferred to a tertiary care facility. The chest tube is not fully expanding his lungs, this is his second occurrence of a spontaneous pneumothorax. Calls were placed to [facility] and [facility]. [facility] is full at the present time, they were unable to place him on a list, they requested that we call again tomorrow. [facility] was also full. This is a non- urgent transfer. We will readdress transfer tomorrow. Continue with chest tube , continue to monitor respiratory status. (2) Atrial fibrillation Plan: Rate well controlled on current regimen. Eliquis currently on hold. Will continue to hold Eliquis pending likely transfer. Continue beta son therapy. (3) Hypertension Plan: Well-controlled on current regimen. Continue beta-son therapy. (4) COPD (chronic obstructive pulmonary disease) Plan: He was initially wheezing. Started on IV Solu-Medrol. Steroids currently being weaned, starting yesterday. Continue to monitor and wean steroids. (5) Acute kidney injury Plan: Appears slightly dry today we will give 1 L of normal saline. Recheck BMP in the morning. (6) DVT prophylaxis Plan: Continue SCDs, heparin subcu. Consider reinitiation of Eliquis soon as, currently on hold pending likely transfer. Continue PPI therapy for GI prophylaxis. (7) Chronic pain Plan: Continue home regimen of narcotic therapy. (8) Discharge planning issues Plan: He is a full code. We will reach out to [facility] and [facility] again tomorrow in regard to his transfer. History of Present Illness - History of Present Illness Chief Complaint: Acute pneumothorax History of Present Illness: Brenton is a 67 year old man with a past medical history significant for COPD, prior etoh abuse, and prior history of spontaneous pneumothorax, who is currently being treated for a large right-sided pneumothorax with signs of tension pneumothorax on imaging. General surgery has been consulted and placed a chest tube successfully, which remains in place today. He feels that his symptoms have improved. He no longer feels short of breath, chest pain, pressure , palpitations, pain. He states he is eating and drinking. He is eager for discharge stating that he has things that he needs to do at home. We discussed that general surgery recommends that he be transferred to a facility with thorasic surgery services due to the fact that his lung is not fully expanding even with a chest tube in place and that this is his second occurrence of a spontaneous pneumothorax. He was on clindamycin in place of his home dosing of oral doxycycline, it was requested that he bring is home doxycycline, the clindamycin is discontinued. Review of Systems - Review of Systems Constitutional: denies: Fever, Chills, Sweats, Weakness, Malaise Respiratory: denies: Cough, Shortness of Breath, Wheezing Cardiovascular: denies: Chest Pain, Palpitations, Edema Gastrointestinal: denies: Nausea, Vomiting, Abdominal Pain, Diarrhea, Constipation Genitourinary: denies: Dysuria, Hematuria Skin: denies: Rash, Lesions - Medications/Allergies Allergies/Adverse Reactions: Allergies Allergy/AdvReac Type Severity Reaction Status Date / Time spironolactone Allergy Unknown Unverified 08/24/17 01:26 bee pollen Allergy Unverified 08/24/17 01:26 Medications: Current Medications Acetaminophen (Tylenol) 0 mg PO Q4H PRN PRN Al Hydrox/Mg Hydrox/Simethicone (Mylanta Liquid) 30 ml PO Q2H PRN PRN Albuterol Sulfate (Proventil Updraft) 2.5 mg UPD Q2H PRN PRN Albuterol/Ipratropium (Duoneb Updraft) 3 ml UPD Q6H [facility] Last Admin: 08/26/17 12:26 Dose: 3 ml Dextrose (Insta-Glucose) 0 gm PO DIRECTED PRN Dextrose/Water () 0 gm IVP DIRECTED PRN Dimethicone/Zinc Oxide (Jamie Protect Cream) 0 gm TP PRN PRN Docusate Sodium (Colace) 100 mg PO TID PRN PRN Fentanyl Citrate (Sublimaze) 50 mcg IVP Q4H PRN Heparin Sodium (Porcine) () 5,000 units SC Q8H [facility] Last Admin: 08/26/17 16:39 Dose: 5,000 units Sodium Chloride (Saline 1000ml Bag) 1,000 mls @ 75 mls/hr IV INFUSION [facility] Last Admin: 08/26/17 09:20 Dose: 75 mls/hr Insulin Aspart (Novolog Flexpen) 0 units SC 0800,1200,1700 [facility] PRN Reason: Protocol Last Admin: 08/26/17 11:30 Dose: 3 units Magnesium Hydroxide (Milk Of Magnesia) 30 ml PO DAILY PRN PRN Methylprednisolone Sodium Succinate (Solu-Medrol) 40 mg IVP Q12H [facility] Last Admin: 08/26/17 07:59 Dose: 40 mg Metoprolol Tartrate (Lopressor) 50 mg PO BID [facility] Last Admin: 08/26/17 08:10 Dose: 50 mg Metoprolol Tartrate (Lopressor) 12.5 mg PO BID [facility] Last Admin: 08/26/17 08:10 Dose: 12.5 mg Morphine Sulfate (Msir) 30 mg PO BID [facility] Last Admin: 08/26/17 07:21 Dose: 30 mg Morphine Sulfate (Ms Contin) 90 mg PO BID@0800,2000 [facility] Last Admin: 08/26/17 07:21 Dose: 90 mg Nicotine (Nicoderm Cq) 14 mg TD DAILY@1400 [facility] Last Admin: 08/26/17 13:55 Dose: 14 mg Pantoprazole Sodium (Protonix Injection) 40 mg IVP DAILY [facility] Last Admin: 08/26/17 07:59 Dose: 40 mg Doxycycline Hyclate (50 Mg) 0 each PO BID [facility] Last Admin: 08/26/17 08:15 Dose: 1 each Polyethylene Glycol (Miralax) 17 gm PO DAILY PRN PRN PRN Reason: Constipation Quetiapine Fumarate (Seroquel) 100 mg PO HS PRN PRN Sodium Chloride (Saline Flush 10 Ml Syringe-Sterile Field) 10 ml IVP PRN PRN Sodium Chloride (Saline Flush 10 Ml Syringe) 10 ml IVP PRN PRN Last Admin: 08/26/17 09:20 Dose: 10 ml Objective - Exam Vitals and I&O: Vital Signs Temp 36.7 C 08/26/17 16:27 Pulse 80 08/26/17 16:27 Resp 19 08/26/17 16:27 BP 139/91 08/26/17 16:27 Pulse Ox 93 L 08/26/17 16:27 Intake & Output 08/25/17 08/26/17 08/26/17 23:59 11:59 23:59 Intake Total 600 68 790 Output Total 545 575 225 Balance 55 -507 565 Weight 104.5 kg Intake: IV 190 68 Oral 410 790 Output: Chest Tube Drainage 20 Urine 525 575 225 Other: Urine Color Yellow Light Eva Light Eva Urine Appearance Clear Clear Clear Urine Odor Normal None None Voiding Methods Urinal Urinal Urinal General: Alert, Oriented x3, Cooperative, No acute distress HEENT: Atraumatic, PERRLA, Mucous membr. moist/pink Neck: Supple. denies: JVD Lungs: Clear to auscultation (Diminished on right side, no wheezing, no rales. Left side is clear.), Normal air movement, Other (Chest tube in place.) Cardiovascular: denies: Regular rate (Irregular ), Murmurs Abdomen: Normal bowel sounds, Soft. denies: Tenderness, Masses Extremities: Normal pulses. denies: Clubbing, Cyanosis, Edema, Tenderness/ swelling Skin: denies: Rashes Psych/Mental Status: Mental status NL, Mood NL - Results Results: Laboratory Results WBC 9.77 k/cumm (4.4-10.8) 08/26/17 06:50 RBC 4.88 m/cumm (4.50-6.00) 08/26/17 06:50 Hgb 14.5 g/dL (13.5-17.5) 08/26/17 06:50 Hct 43.1 % (40.0-50.0) 08/26/17 06:50 MCV 88.3 fL (80-95) 08/26/17 06:50 MCH 29.7 pg (27.0-33.0) 08/26/17 06:50 MCHC 33.6 g/dL (32.0-36.0) 08/26/17 06:50 RDW 14.7 % (11.8-14.1) H 08/26/17 06:50 Plt Count 112 x1000/uL (130-400) L 08/26/17 06:50 MPV 11.8 fL (8.0-11.0) H 08/26/17 06:50 Immature Gran % 0.2 08/26/17 06:50 Neutrophils % 92.8 08/26/17 06:50 Lymphocytes % 4.1 08/26/17 06:50 Monocytes % 2.9 08/26/17 06:50 Eosinophils % 0.0 08/26/17 06:50 Basophils % 0.0 08/26/17 06:50 Absolute Neutrophils 9.07 k/cumm (1.2-6.7) H 08/26/17 06:50 Absolute Lymphocytes 0.40 k/cumm (1.2-3.4) L 08/26/17 06:50 Absolute Monocytes 0.28 k/cumm (0.11-0.7) 08/26/17 06:50 Absolute Eosinophils 0.00 k/cumm (0.0-0.7) 08/26/17 06:50 Absolute Basophils 0.00 k/cumm (0.0-0.2) 08/26/17 06:50 Sodium 137 mmol/L (136-145) 08/26/17 06:50 Potassium 4.5 mmol/L (3.5-5.1) 08/26/17 06:50 Chloride 102 mmol/L (98-107) 08/26/17 06:50 Carbon Dioxide 27.2 mmol/L (21.0-32.0) 08/26/17 06:50 Anion Gap 7.8 mmol/L (3-11) 08/26/17 06:50 BUN 35 mg/dL (7-18) H D 08/26/17 06:50 Creatinine 1.31 mg/dL (0.70-1.30) H 08/26/17 06:50 Estimated GFR/1.73 m2 54.58 (mL/min/1.73m2) 08/26/17 06:50 Glucose 204 mg/dL (70-100) H 08/26/17 06:50 Hemoglobin A1c 7.2 % (4.5-6.2) H 08/24/17 10:20 Calcium 9.2 mg/dL (8.5-10.1) 08/26/17 06:50 Magnesium 2.1 mg/dL (1.8-2.4) 08/26/17 06:50 Total Bilirubin 0.5 mg/dL (0.2-1.0) 08/25/17 06:10 Conjugated Bilirubin 0.14 mg/dL (0.00-0.20) 08/24/17 01:25 AST 21 U/L (15-37) 08/25/17 06:10 ALT 21 U/L (12-78) 08/25/17 06:10 Alkaline Phosphatase 102 U/L (46-116) 08/25/17 06:10 Troponin I 0.02 ng/mL (0.00-0.06) 08/24/17 18:05 Total Protein 7.5 g/dL (6.4-8.2) 08/25/17 06:10 Albumin 3.3 g/dL (3.4-5.0) L 08/25/17 06:10 TSH 1.28 uIU/mL (0.358-3.74) 08/24/17 10:20
--- NOTE | 2017-08-26 18:36 | PGE_ITS ---
PROGRESS NOTE DATE: August 26, 2017 @ 1649 hours DIAGNOSIS: Spontaneous pneumothorax ASSESSMENT: 67-year-old male with persistent pneumothorax after spontaneous pneumothorax. PLAN: 1. Discussed with Medicine - patient on list for transfer to [facility] for VATS procedure with b lebectomy and pleurodesis. +++++++++++++++++++ SUBJECTIVE: Patient stable overnight. No shortness of breath. No fevers or chills. OBJECTIVE: Hemodynamically stable. O2 saturation is 93% on 2 liters. PHYSICAL EXAM: CHEST: He still has a large air leak, though lung sounds are clear. RADIOLOGY: Chest x-ray shows improved expansion of the lung, though he still has a small, probably 10% pneumotho rax on the right.
[2017-08-27] VITALS (7 sets, daily range): BP systolic 133–150; BP diastolic 89–98; PULSE 73–85; RESP 18–20; TEMP 36.4–36.8; O2SAT 94–98
[2017-08-27] MEDS: Albuterol/Ipratropium 3 ML UPD VIAL UPD ×3 (06:35→18:16)
[2017-08-27 07:36] LABS: Abs Immature Grans 0.02 k/cumm (0.0-0.09); Absolute Lymphocyte Count 0.51 k/cumm (1.2-3.4); HCT 44.7 % (40.0-50.0); HGB 14.8 g/dL (13.5-17.5); Immature Grans % 0.3; Lymphocytes % 6.6; Mean Corp. HGB Concentration 33.1 g/dL (32.0-36.0); Mean Corpuscular Hemoglobin 29.1 pg (27.0-33.0); Mean Platelet Volume 11.7 fL (8.0-11.0); Monocytes % 3.9; Neutrophils % 89.2; Platelet Count 101 x1000/uL (130-400); RBC 5.08 m/cumm (4.50-6.00); RBC Distribution Width 14.6 % (11.8-14.1); White Blood Cell Count 7.73 k/cumm (4.4-10.8)
[2017-08-27 07:48] LABS: Anion Gap 6.9 mmol/L (3-11); BUN 35 mg/dL (7-18); CO2 28.1 mmol/L (21.0-32.0); CREATININE 1.43 mg/dL (0.70-1.30); Calcium 8.5 mg/dL (8.5-10.1); Chloride 100 mmol/L (98-107); Estimated GFR 49.33 (mL/min/1.73m2); Glucose 205 mg/dL (70-100); Potassium 4.6 mmol/L (3.5-5.1); Sodium 135 mmol/L (136-145)
--- NOTE | 2017-08-27 08:30 | DI.REPORT_ITS ---
SYMPTOM/DIAGNOSIS: F/U PNEUMOTHORAX PORTABLE AP CHEST: Comparison is made with 08/26/17. There is again seen a moderate sized right pneumothorax. It may show slight increase in size compared to 08/26/17. There is a right chest tube in stable position. There are persistent areas of atelectasis seen in the right lung base. The left lung appears clear and well expanded. Heart size and pulmonary vasculature are stable and within normal limits. There is again seen subcutaneous air along the right lateral chest wall. IMPRESSION: Moderate sized right pneumothorax with mild right basilar atelectasis.
[2017-08-27] MEDS: Normal Saline Flush 10 ML SYR IVP ×2 (08:49→19:26)
[2017-08-27] MEDS: Pantoprazole 40 MG VIAL IVP (08:49)
[2017-08-27] MEDS: methylPREDNISolone SUCC 40 MG VIAL IVP (08:50)
[2017-08-27] MEDS: Heparin 5,000 UNITS/ML VIAL 5000 UNITS SC (08:56)
[2017-08-27] MEDS: Metoprolol 12.5 MG TAB PO ×2 (09:00→19:25)
[2017-08-27] MEDS: Metoprolol 50 MG TAB PO ×2 (09:00→19:25)
[2017-08-27] MEDS: Doxycycline Hyclate 50 MG PO ×2 (09:02→19:26)
[2017-08-27] MEDS: Insulin Aspart 300 UNITS/3 ML PEN SC ×3 (09:05→17:18)
[2017-08-27] MEDS: Apixaban 5 MG TAB PO ×2 (11:13→19:25)
[2017-08-27] MEDS: Docusate Sodium 100 MG CAP PO (13:32)
[2017-08-27] MEDS: Nicotine 14 MG/24 HR PATCH TD (13:32)
--- NOTE | 2017-08-27 14:49 | PDOC.CMPRO ---
Care Management Progress Note S/O: Brenton was lying in bed when CM met with him. He reported being agreeable to [facility] transfer. He reported no additional concerns at this time. Per MD, Brenton will transfer to [facility] tomorrow for a planned surgical intervention on Friday morning. A: 67 year old male admitted to [facility] 08/24/17 with Acute Pneumothorax, AFIB w/RVR, Acute COPD P: Brenton will transfer to [facility] when the tertiary facility is prepared to take him. He will transport via EMS coordinated by Nursing Consulting Technical Director.
--- NOTE | 2017-08-27 14:51 | CMPROGNOTE_ITS ---
Care Management Progress Note S/O: Brenton was lying in bed when CM met with him. He reported being agreeable to [facility] transfer. He reported no additional concerns at this time. Per MD, Brenton will transfer to [facility] tomorrow for a planned surgical intervention on Friday morning. A: 67 year old male admitted to [facility] 08/24/17 with Acute Pneumothorax, AFIB w/RVR , Acute COPD P: Brenton will transfer to [facility] when the tertiary facility is prepared to take him. He will transport via EMS coordinated by Nursing Ear Flap Binder.
--- NOTE | 2017-08-27 15:29 | PDOC.PROG ---
Date of Service: 08/27/17 Time of Service: 15:29 Assessment/Plan - Assessment/Plan (1) Spontaneous pneumothorax Plan: Chest tube in place. General surgery recommends that he be transferred to a facility that can perform VATS procedure and possible pleurodesis. Calls were placed to [facility] and [facility]. [facility] is full and unable to place him on a list for transfer. [facility] asked for images to be pushed. [facility] has accepted the patient. He will likely transfer in the next day or 2. This is a non-urgent transfer. Will continue with a chest tube in place and continue to monitor respiratory status. (2) Atrial fibrillation Plan: His rate is well controlled. He has been monitored on telemetry he remains in atrial fibrillation with rate 70s-90s. We did restart his Eliquis today. Continue beta son therapy. (3) Hypertension Plan: Blood pressure well controlled on current regimen, continue beta-son therapy. (4) COPD (chronic obstructive pulmonary disease) Plan: No wheezing. IV Solu-Medrol taper began 2 days ago. Transition to p.o. prednisone tomorrow morning. (5) Acute kidney injury Plan: Creatinine worsening. BMP in the morning. (6) DVT prophylaxis Plan: We did restart his Eliquis today. Heparin discontinued, continue SCDs. PPI for GI prophylaxis. (7) Chronic pain Plan: Continue home regimen of narcotic therapy, pain is currently well controlled. (8) Discharge planning issues Plan: He is a full code. Plan to transfer to [facility]. History of Present Illness - History of Present Illness History of Present Illness: Brenton is a 67 year old man with a past medical history significant for COPD, prior etoh abuse, and prior history of spontaneous pneumothorax, who is currently being treated for a large right-sided pneumothorax with signs of tension pneumothorax on imaging. General surgery has been consulted and placed a chest tube successfully, which remains in place today. He feels much better. We discussed general surgery's recommendations that he be transferred to a facility that can perform a VATS procedure as well as possible pleurodesis due to the fact that his lung is not fully expanding even with the chest tube in place and that this is his second occurrence of a spontaneous pneumothorax.. Calls have been placed to [facility] and [facility]. Films were pushed to [facility]. He is agreeable to transfer and hopeful that it will happen in the next couple of days. He really verbalizes no complaints. He is breathing without difficulty, no shortness of breath, no wheezing no coughing. He is tolerating his diet. He is back on his home dose of his doxycycline that he takes chronically status post knee infections. Review of Systems - Review of Systems Constitutional: denies: Fever, Chills, Sweats, Weakness, Malaise Respiratory: denies: Cough, Shortness of Breath, Hemoptysis, Wheezing Cardiovascular: denies: Chest Pain, Palpitations, Edema Gastrointestinal: denies: Nausea, Vomiting, Abdominal Pain, Diarrhea, Constipation Genitourinary: denies: Dysuria, Hematuria Skin: denies: Rash, Lesions - Medications/Allergies Allergies/Adverse Reactions: Allergies Allergy/AdvReac Type Severity Reaction Status Date / Time spironolactone Allergy Unknown Unverified 08/24/17 01:26 bee pollen Allergy Unverified 08/24/17 01:26 Medications: Current Medications Acetaminophen (Tylenol) 0 mg PO Q4H PRN PRN Al Hydrox/Mg Hydrox/Simethicone (Mylanta Liquid) 30 ml PO Q2H PRN PRN Albuterol Sulfate (Proventil Updraft) 2.5 mg UPD Q2H PRN PRN Albuterol/Ipratropium (Duoneb Updraft) 3 ml UPD Q6H [facility] Last Admin: 08/27/17 11:45 Dose: 3 ml Apixaban (Eliquis) 5 mg PO BID [facility] Last Admin: 08/27/17 11:13 Dose: 5 mg Dextrose (Insta-Glucose) 0 gm PO DIRECTED PRN Dextrose/Water () 0 gm IVP DIRECTED PRN Dimethicone/Zinc Oxide (Jamie Protect Cream) 0 gm TP PRN PRN Docusate Sodium (Colace) 100 mg PO TID PRN PRN Last Admin: 08/27/17 13:32 Dose: 100 mg Sodium Chloride (Saline 1000ml Bag) 1,000 mls @ 75 mls/hr IV INFUSION [facility] Last Admin: 08/26/17 09:20 Dose: 75 mls/hr Insulin Aspart (Novolog Flexpen) 0 units SC 0800,1200,1700 [facility] PRN Reason: Protocol Last Admin: 08/27/17 12:03 Dose: 3 units Magnesium Hydroxide (Milk Of Magnesia) 30 ml PO DAILY PRN PRN Metoprolol Tartrate (Lopressor) 50 mg PO BID [facility] Last Admin: 08/27/17 09:00 Dose: 50 mg Metoprolol Tartrate (Lopressor) 12.5 mg PO BID [facility] Last Admin: 08/27/17 09:00 Dose: 12.5 mg Morphine Sulfate (Msir) 30 mg PO BID [facility] Last Admin: 08/27/17 09:01 Dose: 30 mg Morphine Sulfate (Ms Contin) 90 mg PO BID@0800,2000 [facility] Last Admin: 08/27/17 09:02 Dose: 90 mg Nicotine (Nicoderm Cq) 14 mg TD DAILY@1400 [facility] Last Admin: 08/27/17 13:32 Dose: 14 mg Pantoprazole Sodium (Protonix Injection) 40 mg IVP DAILY [facility] Last Admin: 08/27/17 08:49 Dose: 40 mg Doxycycline Hyclate (50 Mg) 0 each PO BID [facility] Last Admin: 08/27/17 09:02 Dose: 1 each Polyethylene Glycol (Miralax) 17 gm PO DAILY PRN PRN PRN Reason: Constipation Prednisone (Deltasone) 40 mg PO DAILY [facility] Quetiapine Fumarate (Seroquel) 100 mg PO HS PRN PRN Sodium Chloride (Saline Flush 10 Ml Syringe-Sterile Field) 10 ml IVP PRN PRN Sodium Chloride (Saline Flush 10 Ml Syringe) 10 ml IVP PRN PRN Last Admin: 08/27/17 08:49 Dose: 10 ml Objective - Exam Vitals and I&O: Vital Signs Temp 36.8 C 08/27/17 07:33 Pulse 73 08/27/17 07:33 Resp 20 08/27/17 07:33 BP 133/89 08/27/17 07:33 Pulse Ox 97 08/27/17 07:33 Intake & Output 08/26/17 08/27/17 08/27/17 23:59 11:59 23:59 Intake Total 1925 1130 120 Output Total 825 1150 310 Balance 1100 -20 -190 Weight 104.2 kg Intake: IV 775 1030 Oral 1150 100 120 Output: Chest Tube Drainage 10 Urine 825 1150 300 Other: Urine Color Yellow Straw Yellow Urine Appearance Clear Clear Clear Urine Odor None None Normal Voiding Methods Urinal Urinal Urinal General: Alert, Oriented x3, Cooperative, No acute distress HEENT: Atraumatic, PERRLA, Mucous membr. moist/pink Neck: Supple. denies: JVD Lungs: Clear to auscultation, Normal air movement, Other (Chest tube in place and draining.) Cardiovascular: denies: Regular rate (Irregular rhythm), Murmurs Abdomen: Normal bowel sounds, Soft (Round). denies: Tenderness, Masses Extremities: Normal pulses. denies: Clubbing, Cyanosis, Edema, Tenderness/swelling Skin: denies: Rashes, Significant lesion Psych/Mental Status: Mental status NL, Mood NL - Results Results: Laboratory Results WBC 7.73 k/cumm (4.4-10.8) 08/27/17 07:03 RBC 5.08 m/cumm (4.50-6.00) 08/27/17 07:03 Hgb 14.8 g/dL (13.5-17.5) 08/27/17 07:03 Hct 44.7 % (40.0-50.0) 08/27/17 07:03 MCV 88.0 fL (80-95) 08/27/17 07:03 MCH 29.1 pg (27.0-33.0) 08/27/17 07:03 MCHC 33.1 g/dL (32.0-36.0) 08/27/17 07:03 RDW 14.6 % (11.8-14.1) H 08/27/17 07:03 Plt Count 101 x1000/uL (130-400) L 08/27/17 07:03 MPV 11.7 fL (8.0-11.0) H 08/27/17 07:03 Immature Gran % 0.3 08/27/17 07:03 Neutrophils % 89.2 08/27/17 07:03 Lymphocytes % 6.6 08/27/17 07:03 Monocytes % 3.9 08/27/17 07:03 Eosinophils % 0.0 08/27/17 07:03 Basophils % 0.0 08/27/17 07:03 Absolute Neutrophils 6.90 k/cumm (1.2-6.7) H 08/27/17 07:03 Absolute Lymphocytes 0.51 k/cumm (1.2-3.4) L 08/27/17 07:03 Absolute Monocytes 0.30 k/cumm (0.11-0.7) 08/27/17 07:03 Absolute Eosinophils 0.00 k/cumm (0.0-0.7) 08/27/17 07:03 Absolute Basophils 0.00 k/cumm (0.0-0.2) 08/27/17 07:03 Sodium 135 mmol/L (136-145) L 08/27/17 07:03 Potassium 4.6 mmol/L (3.5-5.1) 08/27/17 07:03 Chloride 100 mmol/L (98-107) 08/27/17 07:03 Carbon Dioxide 28.1 mmol/L (21.0-32.0) 08/27/17 07:03 Anion Gap 6.9 mmol/L (3-11) 08/27/17 07:03 BUN 35 mg/dL (7-18) H 08/27/17 07:03 Creatinine 1.43 mg/dL (0.70-1.30) H 08/27/17 07:03 Estimated GFR/1.73 m2 49.33 (mL/min/1.73m2) 08/27/17 07:03 Glucose 205 mg/dL (70-100) H 08/27/17 07:03 Hemoglobin A1c 7.2 % (4.5-6.2) H 08/24/17 10:20 Calcium 8.5 mg/dL (8.5-10.1) 08/27/17 07:03 Magnesium 2.0 mg/dL (1.8-2.4) 08/27/17 07:03 Total Bilirubin 0.5 mg/dL (0.2-1.0) 08/25/17 06:10 Conjugated Bilirubin 0.14 mg/dL (0.00-0.20) 08/24/17 01:25 AST 21 U/L (15-37) 08/25/17 06:10 ALT 21 U/L (12-78) 08/25/17 06:10 Alkaline Phosphatase 102 U/L (46-116) 08/25/17 06:10 Troponin I 0.02 ng/mL (0.00-0.06) 08/24/17 18:05 Total Protein 7.5 g/dL (6.4-8.2) 08/25/17 06:10 Albumin 3.3 g/dL (3.4-5.0) L 08/25/17 06:10 TSH 1.28 uIU/mL (0.358-3.74) 08/24/17 10:20
--- NOTE | 2017-08-27 15:38 | PDOC.PROG_ITS ---
Date of Service: 08/27/17 Time of Service: 15:29 Assessment/Plan - Assessment/Plan (1) Spontaneous pneumothorax Plan: Chest tube in place. General surgery recommends that he be transferred to a facility that can perform VATS procedure and possible pleurodesis. Calls were placed to [facility] and [facility]. [facility] is full and unable to place him on a list for transfer. [facility] asked for images to be pushed. [facility] has accepted the patient. He will likely transfer in the next day or 2. This is a non-urgent transfer. Will continue with a chest tube in place and continue to monitor respiratory status. (2) Atrial fibrillation Plan: His rate is well controlled. He has been monitored on telemetry he remains in atrial fibrillation with rate 70s-90s. We did restart his Eliquis today. Continue beta son therapy. (3) Hypertension Plan: Blood pressure well controlled on current regimen, continue beta-son therapy. (4) COPD (chronic obstructive pulmonary disease) Plan: No wheezing. IV Solu-Medrol taper began 2 days ago. Transition to p.o. prednisone tomorrow morning. (5) Acute kidney injury Plan: Creatinine worsening. BMP in the morning. (6) DVT prophylaxis Plan: We did restart his Eliquis today. Heparin discontinued, continue SCDs. PPI for GI prophylaxis. (7) Chronic pain Plan: Continue home regimen of narcotic therapy, pain is currently well controlled. (8) Discharge planning issues Plan: He is a full code. Plan to transfer to [facility]. History of Present Illness - History of Present Illness History of Present Illness: Brenton is a 67 year old man with a past medical history significant for COPD, prior etoh abuse, and prior history of spontaneous pneumothorax, who is currently being treated for a large right-sided pneumothorax with signs of tension pneumothorax on imaging. General surgery has been consulted and placed a chest tube successfully, which remains in place today. He feels much better. We discussed general surgery's recommendations that he be transferred to a facility that can perform a VATS procedure as well as possible pleurodesis due to the fact that his lung is not fully expanding even with the chest tube in place and that this is his second occurrence of a spontaneous pneumothorax.. Calls have been placed to [facility] and [facility]. Films were pushed to [facility]. He is agreeable to transfer and hopeful that it will happen in the next couple of days. He really verbalizes no complaints. He is breathing without difficulty, no shortness of breath, no wheezing no coughing. He is tolerating his diet. He is back on his home dose of his doxycycline that he takes chronically status post knee infections. Review of Systems - Review of Systems Constitutional: denies: Fever, Chills, Sweats, Weakness, Malaise Respiratory: denies: Cough, Shortness of Breath, Hemoptysis, Wheezing Cardiovascular: denies: Chest Pain, Palpitations, Edema Gastrointestinal: denies: Nausea, Vomiting, Abdominal Pain, Diarrhea, Constipation Genitourinary: denies: Dysuria, Hematuria Skin: denies: Rash, Lesions - Medications/Allergies Allergies/Adverse Reactions: Allergies Allergy/AdvReac Type Severity Reaction Status Date / Time spironolactone Allergy Unknown Unverified 08/24/17 01:26 bee pollen Allergy Unverified 08/24/17 01:26 Medications: Current Medications Acetaminophen (Tylenol) 0 mg PO Q4H PRN PRN Al Hydrox/Mg Hydrox/Simethicone (Mylanta Liquid) 30 ml PO Q2H PRN PRN Albuterol Sulfate (Proventil Updraft) 2.5 mg UPD Q2H PRN PRN Albuterol/Ipratropium (Duoneb Updraft) 3 ml UPD Q6H [facility] Last Admin: 08/27/17 11:45 Dose: 3 ml Apixaban (Eliquis) 5 mg PO BID [facility] Last Admin: 08/27/17 11:13 Dose: 5 mg Dextrose (Insta-Glucose) 0 gm PO DIRECTED PRN Dextrose/Water () 0 gm IVP DIRECTED PRN Dimethicone/Zinc Oxide (Jamie Protect Cream) 0 gm TP PRN PRN Docusate Sodium (Colace) 100 mg PO TID PRN PRN Last Admin: 08/27/17 13:32 Dose: 100 mg Sodium Chloride (Saline 1000ml Bag) 1,000 mls @ 75 mls/hr IV INFUSION [facility] Last Admin: 08/26/17 09:20 Dose: 75 mls/hr Insulin Aspart (Novolog Flexpen) 0 units SC 0800,1200,1700 [facility] PRN Reason: Protocol Last Admin: 08/27/17 12:03 Dose: 3 units Magnesium Hydroxide (Milk Of Magnesia) 30 ml PO DAILY PRN PRN Metoprolol Tartrate (Lopressor) 50 mg PO BID [facility] Last Admin: 08/27/17 09:00 Dose: 50 mg Metoprolol Tartrate (Lopressor) 12.5 mg PO BID [facility] Last Admin: 08/27/17 09:00 Dose: 12.5 mg Morphine Sulfate (Msir) 30 mg PO BID [facility] Last Admin: 08/27/17 09:01 Dose: 30 mg Morphine Sulfate (Ms Contin) 90 mg PO BID@0800,2000 [facility] Last Admin: 08/27/17 09:02 Dose: 90 mg Nicotine (Nicoderm Cq) 14 mg TD DAILY@1400 [facility] Last Admin: 08/27/17 13:32 Dose: 14 mg Pantoprazole Sodium (Protonix Injection) 40 mg IVP DAILY [facility] Last Admin: 08/27/17 08:49 Dose: 40 mg Doxycycline Hyclate (50 Mg) 0 each PO BID [facility] Last Admin: 08/27/17 09:02 Dose: 1 each Polyethylene Glycol (Miralax) 17 gm PO DAILY PRN PRN PRN Reason: Constipation Prednisone (Deltasone) 40 mg PO DAILY [facility] Quetiapine Fumarate (Seroquel) 100 mg PO HS PRN PRN Sodium Chloride (Saline Flush 10 Ml Syringe-Sterile Field) 10 ml IVP PRN PRN Sodium Chloride (Saline Flush 10 Ml Syringe) 10 ml IVP PRN PRN Last Admin: 08/27/17 08:49 Dose: 10 ml Objective - Exam Vitals and I&O: Vital Signs Temp 36.8 C 08/27/17 07:33 Pulse 73 08/27/17 07:33 Resp 20 08/27/17 07:33 BP 133/89 08/27/17 07:33 Pulse Ox 97 08/27/17 07:33 Intake & Output 08/26/17 08/27/17 08/27/17 23:59 11:59 23:59 Intake Total 1925 1130 120 Output Total 825 1150 310 Balance 1100 -20 -190 Weight 104.2 kg Intake: IV 775 1030 Oral 1150 100 120 Output: Chest Tube Drainage 10 Urine 825 1150 300 Other: Urine Color Yellow Straw Yellow Urine Appearance Clear Clear Clear Urine Odor None None Normal Voiding Methods Urinal Urinal Urinal General: Alert, Oriented x3, Cooperative, No acute distress HEENT: Atraumatic, PERRLA, Mucous membr. moist/pink Neck: Supple. denies: JVD Lungs: Clear to auscultation, Normal air movement, Other (Chest tube in place and draining.) Cardiovascular: denies: Regular rate (Irregular rhythm), Murmurs Abdomen: Normal bowel sounds, Soft (Round). denies: Tenderness, Masses Extremities: Normal pulses. denies: Clubbing, Cyanosis, Edema, Tenderness/ swelling Skin: denies: Rashes, Significant lesion Psych/Mental Status: Mental status NL, Mood NL - Results Results: Laboratory Results WBC 7.73 k/cumm (4.4-10.8) 08/27/17 07:03 RBC 5.08 m/cumm (4.50-6.00) 08/27/17 07:03 Hgb 14.8 g/dL (13.5-17.5) 08/27/17 07:03 Hct 44.7 % (40.0-50.0) 08/27/17 07:03 MCV 88.0 fL (80-95) 08/27/17 07:03 MCH 29.1 pg (27.0-33.0) 08/27/17 07:03 MCHC 33.1 g/dL (32.0-36.0) 08/27/17 07:03 RDW 14.6 % (11.8-14.1) H 08/27/17 07:03 Plt Count 101 x1000/uL (130-400) L 08/27/17 07:03 MPV 11.7 fL (8.0-11.0) H 08/27/17 07:03 Immature Gran % 0.3 08/27/17 07:03 Neutrophils % 89.2 08/27/17 07:03 Lymphocytes % 6.6 08/27/17 07:03 Monocytes % 3.9 08/27/17 07:03 Eosinophils % 0.0 08/27/17 07:03 Basophils % 0.0 08/27/17 07:03 Absolute Neutrophils 6.90 k/cumm (1.2-6.7) H 08/27/17 07:03 Absolute Lymphocytes 0.51 k/cumm (1.2-3.4) L 08/27/17 07:03 Absolute Monocytes 0.30 k/cumm (0.11-0.7) 08/27/17 07:03 Absolute Eosinophils 0.00 k/cumm (0.0-0.7) 08/27/17 07:03 Absolute Basophils 0.00 k/cumm (0.0-0.2) 08/27/17 07:03 Sodium 135 mmol/L (136-145) L 08/27/17 07:03 Potassium 4.6 mmol/L (3.5-5.1) 08/27/17 07:03 Chloride 100 mmol/L (98-107) 08/27/17 07:03 Carbon Dioxide 28.1 mmol/L (21.0-32.0) 08/27/17 07:03 Anion Gap 6.9 mmol/L (3-11) 08/27/17 07:03 BUN 35 mg/dL (7-18) H 08/27/17 07:03 Creatinine 1.43 mg/dL (0.70-1.30) H 08/27/17 07:03 Estimated GFR/1.73 m2 49.33 (mL/min/1.73m2) 08/27/17 07:03 Glucose 205 mg/dL (70-100) H 08/27/17 07:03 Hemoglobin A1c 7.2 % (4.5-6.2) H 08/24/17 10:20 Calcium 8.5 mg/dL (8.5-10.1) 08/27/17 07:03 Magnesium 2.0 mg/dL (1.8-2.4) 08/27/17 07:03 Total Bilirubin 0.5 mg/dL (0.2-1.0) 08/25/17 06:10 Conjugated Bilirubin 0.14 mg/dL (0.00-0.20) 08/24/17 01:25 AST 21 U/L (15-37) 08/25/17 06:10 ALT 21 U/L (12-78) 08/25/17 06:10 Alkaline Phosphatase 102 U/L (46-116) 08/25/17 06:10 Troponin I 0.02 ng/mL (0.00-0.06) 08/24/17 18:05 Total Protein 7.5 g/dL (6.4-8.2) 08/25/17 06:10 Albumin 3.3 g/dL (3.4-5.0) L 08/25/17 06:10 TSH 1.28 uIU/mL (0.358-3.74) 08/24/17 10:20
--- NOTE | 2017-08-27 18:20 | DM INPTCON_ITS ---
DESCRIPTION/ASSESSMENT: Appreciate diabetes consult for Mr. George who is hospitalized with pneumothorax. He is receiving 40mg Prednilisone at this time. A1c 7.2 Blood sugars this hospitalization have been in the 200s primarily with insulin correction at sensitive level. Attempted to visit; he was not available. INTERVENTION/PLAN: Suggest increasing insulin correction to resistant or initiate NPH to follow rise in blood sugar from Steroid administration at .4xweight in kg = 40units at time of administration. Given that he appears to be naive to insulin and possibly diabetes, that may likely be too high and could start with half the dose. Will follow blood sugars. Will attempt to follow up with him.
[2017-08-27] MEDS: QUEtiapine 100 MG TAB PO (19:42)
[2017-08-28 07:14] LABS: Abs Immature Grans 0.03 k/cumm (0.0-0.09); Absolute Lymphocyte Count 0.91 k/cumm (1.2-3.4); Absolute Monocyte Count 0.54 k/cumm (0.11-0.7); Absolute Neutrophil Count 6.01 k/cumm (1.2-6.7); HCT 46.4 % (40.0-50.0); HGB 15.4 g/dL (13.5-17.5); Immature Grans % 0.4; Lymphocytes % 12.1; Mean Corp. HGB Concentration 33.2 g/dL (32.0-36.0); Mean Corpuscular Hemoglobin 29.3 pg (27.0-33.0); Mean Corpuscular Volume 88.2 fL (80-95); Mean Platelet Volume 11.7 fL (8.0-11.0); Monocytes % 7.2; Neutrophils % 80.3; Platelet Count 102 x1000/uL (130-400); RBC 5.26 m/cumm (4.50-6.00); RBC Distribution Width 14.4 % (11.8-14.1); White Blood Cell Count 7.49 k/cumm (4.4-10.8)
[2017-08-28 07:22] VITALS: PULSE 79
[2017-08-28 07:24] LABS: Anion Gap 3.7 mmol/L (3-11); BUN 32 mg/dL (7-18); CO2 31.3 mmol/L (21.0-32.0); CREATININE 1.44 mg/dL (0.70-1.30); Calcium 8.5 mg/dL (8.5-10.1); Chloride 102 mmol/L (98-107); Estimated GFR 48.93 (mL/min/1.73m2); Glucose 128 mg/dL (70-100); Magnesium 2.1 mg/dL (1.8-2.4); Potassium 4.6 mmol/L (3.5-5.1); Sodium 137 mmol/L (136-145)
[2017-08-28] MEDS: Doxycycline Hyclate 50 MG PO (08:26)
[2017-08-28] MEDS: Metoprolol 50 MG TAB PO (08:26)
[2017-08-28] MEDS: Metoprolol 12.5 MG TAB PO (08:27)
[2017-08-28] MEDS: predniSONE 20 MG TAB 40 MG PO (08:27)
[2017-08-28] MEDS: Normal Saline Flush 10 ML SYR IVP (08:29)
[2017-08-28] MEDS: Pantoprazole 40 MG VIAL IVP (08:30)
[2017-08-28 09:45] VITALS: O2SAT 95
[2017-08-28] MEDS: Docusate Sodium 100 MG CAP PO (10:16)
--- NOTE | 2017-08-28 10:33 | PROG.BLANK ---
Date of Service: 08/28/17 Time of Service: 10:20 Progress Note POD # 4 s/p chest tube placement S: Feels fine. No complaints O: VSS AFeb CT: decreased air entry bilateral bases Large air leak still CXR shows slight increase in PTX. A: 2nd Spontaneoius PTX on the right Large air leak P: Await transfer to [facility] May want to checK with [place] or [facility] if no bed available soon
[2017-08-28 11:40] VITALS: BP 153/101; PULSE 65; RESP 19; TEMP 36.7; O2SAT 95
[2017-08-28] MEDS: Insulin Aspart 300 UNITS/3 ML PEN SC (12:08)
[2017-08-28] MEDS: Albuterol/Ipratropium 3 ML UPD VIAL UPD (12:30)
--- NOTE | 2017-08-28 12:34 | DISCHARGE ---
Discharge - Discharge Orders - Discharge Plan Disposition: [facility] ([facility]) Condition: Improving Diet:: Carb Counting Equipment/Supplies:: No Equipment Needed Activity:: Activity as Tolerated - Instructions Micromedex Instructions: Spontaneous Pneumothorax (DC), Video Assisted Thoracoscopic Surgery (DC), Pleurodesis (DC)
--- NOTE | 2017-08-28 12:35 | PDOC.DISCH_ITS ---
Discharge - Discharge Orders - Discharge Plan Disposition: [facility] ([facility]) Condition: Improving Diet:: Carb Counting Equipment/Supplies:: No Equipment Needed Activity:: Activity as Tolerated - Instructions Micromedex Instructions: Spontaneous Pneumothorax (DC), Video Assisted Thoracoscopic Surgery (DC), Pleurodesis (DC)
--- NOTE | 2017-08-28 14:45 | PDOC.CMDIS ---
Date of Service: 08/28/17 Time of Service: 14:45 LACE Index Scoring Tool - Questions: Length of Stay (in days): 4 - 6 Acuity (Admit via E.D.?): Yes Comorbidities: Chronic Pulmonary Disease E.D. Visits: 2 - Answers: Total Score: 11 Risk of Readmission: High Risk Care Management Discharge Reason for Hospitalization: Acute pneumothorax, A-Fib, Acute COPD Exacerbation Discharge Plan: Pt to DC to [facility] today for further care. Pt to transport via ambulance. Patient/Family Education Needs: Review DC instructions, any limitations, Ask Me Three Services Needed at Discharge: Transportation (Via ambulance to [facility])
--- NOTE | 2017-08-29 07:33 | DSE_ITS ---
DISCHARGE SUMMARY DATE OF DISCHARGE August 28, 2017 Felicitas Hutchison NP - Working with Dr. Shannon. REASON FOR ADMISSION Spontaneous pneumothorax. Atrial fibrillation with RVR. Acute chronic obstructive pulmonary disease exacerbation. HOSPITAL COURSE Brenton George is a 67-year-old gentleman, who is a current smoker with COPD and prior history of spontaneous pneumothorax, who presented to the Emergency Department on 08/24/2017 after he experienced a sudden onset of dyspnea on exertion. He contacted EMS for transport to the hospital. Upon his arrival at the Emergency Department, he was hypoxic and found to have decreased breath sounds over his right side. He went on to have a chest x-ray in the Emergency Department, which revealed a large right pneumothorax with near complete collapse of the right lung and mild tension pneumothorax. General Surgery was consulted and went on to place a chest tube successfully to suction. His symptoms improved with the chest tube in place, however, followup x -rays showed persistent pneumothorax, his lungs have not re-expanded even with the chest tube in place. General Surgery has been following the patient as well and recommends that the patient be transferred to the [facility] for VATS procedure with blebectomy and pleurodesis. The patient was admitted to the ICU and was initially on a diltiazem drip for his atrial fibrillation with RVR, which has since improved. Calls were placed to both [facility] and [facility] 08/26/2017. On 08/27/17, the [facility] accepted him to cardiothoracic surgery to Dr. Worthington. Today, there is a bed available for him and he will be transferred. Mr. George also has a history of atrial fibrillation, he did go into Afib with rapid ventricular response with the pneumothorax. He has been monitored on telemetry and noted to be in atrial fibrillation. By the day of discharge, his rate is well controlled in the 80s. His Eliquis has been on hold pending transfer to [facility] with his last dose being received on 08/27/2017 at 1925. He also has history of COPD and he is a current smoker. At the time of admission , he was noted to have a slight COPD exacerbation. He was started on IV steroids and nebulizers. His steroids have been tapered down and he is currently on day #2 of p.o. prednisone at 40 mg daily. He continues on nicotine replacement patch. His respiratory status is markedly improved with the chest tube in place. He was noted to have elevated blood sugar on admission. His Hemoglobin A1c came back to 7.2. His blood sugars have been maintained on a sliding scale of short- acting insulin. display designer was consulted, however, she was unable to see the patient prior to transfer. Mr. George's kidney function initially revealed a BUN of 24 with a creatinine of 1.68, this did improve slightly over the following days, however, by the day of discharge, his BUN is 32 and creatinine 1.44. Nephrotoxic agents have been avoided. This will require monitoring. Of note, Mr. George does have a history of multiple knee surgeries with complications of a septic left knee. 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 He is a recovering alcoholic. He drank heavily up until 2007, when he quit drinking. He does have a history of chronic pain, for which he has a contract with his primary care provider. He is on his home dosing with both long and short-acting morphine. SIGNIFICANT TEST RESULTS On the day of discharge, his sodium is 137, potassium 4.6, chloride 102, carbon dioxide 31.3. His BUN is 32, creatinine 1.44. His estimated GFR is 48.93. Glucose is 128. Magnesium 2.1 improved from 1.7 on admission. Hemoglobin A1c was 7.2. TSH 1.28. Liver function tests within normal limits. White blood cell count remained normal. On the day of discharge, his white blood cell count is 7.49, red blood cells 5.26, hemoglobin 15.4, hematocrit 46.4, platelet count 102. He has had multiple x-rays, initially showing a right-sided pneumothorax with near complete collapse of the right lung and mild tension pneumothorax. Followup x-rays revealed chest tube placement appropriate. Most recent chest x- ray on 08/27/2017 reveals moderate right-side pneumothorax and mild right basilar atelectasis. He has a chest CT, which showed the chest tube was positioned in the right apical mediastinal fat. There was a moderate right side pneumothorax. There are significant underlying changes of the paraseptal and central lobular emphysema, pleural calcification is also seen on the right. DISCHARGE DIAGNOSES ACUTE 1. Spontaneous pneumothorax. a. Second occurrence, previous spontaneous pneumothorax of the right lung, also in 2016. 2. Chest tube in place without re-expansion of the lung. Continues with large air leak. 3. Chronic obstructive pulmonary disease exacerbation improved. Currently on prednisone taper, day 2 of 40 mg p.o. daily. 4. Diabetes. a. New diagnosis. Hemoglobin A1c 7.2 during this hospitalization. 5. Atrial fibrillation with RVR. a. Apixaban on hold. b. Rate well controlled in the 80s with current metoprolol dose. 6. Acute renal insufficiency. CHRONIC 1. Severe arthritis status post total knee arthroplasty once on the right and six different surgeries on the left with complications of a septic knee with MRSA chronically on doxycycline for suppression. 2. History of alcohol abuse, quit drinking in 2007. 3. Tobacco abuse. a. Current smoker, one pack per day. 4. Chronic obstructive pulmonary disease. 5. Depression with insomnia. 6. Bee sting allergy, carries EpiPen. 7. Hypertension. 8. History of acute renal failure requiring dialysis for a short time with the septic knee in the past. 9. Chronic kidney disease. 10. Chronic pain. PAST SURGICAL HISTORY Knee surgery as above. DISCHARGE MEDICATIONS 1. EpiPen 0.3 mg IM as directed. 2. Acetaminophen 1000 mg p.o. t.i.d. 3. Colace 100 mg p.o. b.i.d. p.r.n. 4. Seroquel 100 mg p.o. at bedtime p.r.n. 5. Doxycycline 50 mg p.o. b.i.d. 6. Aspart per sliding scale at 8, 12 and 17. 7. Lopressor 12.5 mg p.o. b.i.d. 8. Lopressor 50 mg p.o. b.i.d. 9. MSIR 30 mg p.o. b.i.d. 10. Morphine CR 90 mg p.o. b.i.d. 11. NicoDerm CQ 14 mg transdermal daily at 1400. 12. Protonix 40 mg IV push daily. 13. Prednisone 40 mg p.o. daily, day #2 of taper. 14. DuoNeb updraft 3 ml updraft q. 6 hours p.r.n. DISPOSITION Brenton George is transferred to the [facility] where he will undergo a VATS procedure with possible pleurodesis for a second occurrence of spontaneous pneumothorax on the right. He has been accepted to Cardiothoracic Surgery, by Dr. Worthington. He will be transferred via ambulance with a director of teenage activities due to his chest tube. He is in stable condition. Felicitas Hutchison NP - This case was discussed with Dr. Shannon, who is in agreement.
--- NOTE | 2017-10-11 03:24 | NUR.NOTE ---
Nursing Note: 09/23/17 0330 Fentanyl 50 mcg IVP given for pain v.o Dr. Hebert. 09/23/17 0345 Fentanyl 50 mcg IVP given for pain v.o Dr. Hebert.
== END 2017-08-28 13:55 | disposition short-term general hospital (02) | DRG 200 ==
LOC: MS 05-05 13:17 → ER 05-05 13:17
PROVIDERS: Admitting Provider Family Medicine; Emergency Provider Physician Assistant; PCP Family Medicine; Visit Provider Internal Medicine
DX: J93.0 Spontaneous tension pneumothorax (principal); I47.2 Ventricular tachycardia; J44.1 Chronic obstructive pulmonary disease with (acute) exacerbation; N17.9 Acute kidney failure, unspecified; J95.812 Postprocedural air leak; I48.91 Unspecified atrial fibrillation; F17.210 Nicotine dependence, cigarettes, uncomplicated; Z86.14 Personal history of Methicillin resistant Staphylococcus aureus infection; G89.29 Other chronic pain; F32.9 Major depressive disorder, single episode, unspecified; I10 Essential (primary) hypertension; N18.9 Chronic kidney disease, unspecified; E11.9 Type 2 diabetes mellitus without complications; Z71.3 Dietary counseling and surveillance; Z79.01 Long term (current) use of anticoagulants
CPT/HCPCS: 36415 ×5; 80048 ×4; 80053; 80076; 83735 ×5; 83036; 84443; 84484 ×3; 85025 ×5; 71045 ×9; 71250; 94640 ×8; 99285; 96365; 93010; 99222 ×2; 99223; 99233; 99239; J7512; J1644 ×10; J2930; J7613; J7620 ×15; J3010 ×7; 32551; 85027; 93005; 96375; 99221; 99231; 99232; J3490

== ENCOUNTER 2018-03-31 02:03 | Outpatient (CLI) | payer MEDICARE, SELFPAY ==
[2018-03-31 13:33] LABS: Hemoglobin A1C 7.2 % (4.5-6.2)
== END 2018-03-31 02:23 ==
PROVIDERS: PCP Family Medicine; Visit Provider Family Medicine
DX: R73.09 Other abnormal glucose (principal)
CPT/HCPCS: 36415; 83036

== ENCOUNTER → 2018-04-24 11:18 | Outpatient (BNVA) | payer MEDICARE, SELFPAY | PROVIDERS: PCP Family Medicine; Referring Provider Family Medicine; Visit Provider Surgery | DX: K42.9 Umbilical hernia without obstruction or gangrene (principal); Q79.59 Other congenital malformations of abdominal wall; I48.91 Unspecified atrial fibrillation; Z79.01 Long term (current) use of anticoagulants; K70.31 Alcoholic cirrhosis of liver with ascites | CPT/HCPCS: 99203; 99213 ==

== ENCOUNTER 2018-05-20 01:13 | Outpatient (CLI) | payer MEDICARE, SELFPAY ==
--- NOTE | 2018-05-20 07:02 | DI.US_ITS ---
SYMPTOM/DIAGNOSIS: ALCOHOLIC CIRRHOSIS OF LIVER WITH ASCITES, K70.31, EVALUATE PREOPERATIVELY ABDOMEN ULTRASOUND: Routine examination. Comparison is made with 04/09/16. The aorta and IVC are unremarkable. The liver measures 12 cm. in length. There is a nodular contour of the liver border raising the question of hepatic cirrhosis. No hepatic mass is seen. The gallbladder is unremarkable. There are several mobile stones within the gallbladder. No gallbladder wall thickening is seen. The common duct is within normal limits at .6 cm. The pancreas is echogenic but no discrete mass is seen. This may represent fatty infiltration. The spleen is within normal limits at 11 cm. There is a tiny amount of fluid seen in the perisplenic region. The right kidney is unremarkable. There do appear to be a few echogenic seen within the left kidney. These may represent vascular calcifications or non obstructing stones. IMPRESSION: 1. Nodular liver raising the question of hepatic cirrhosis. 2. Tiny amount of perisplenic fluid. 3. Cholelithiasis. No biliary ductal dilatation. 4. Echogenic foci seen within the left kidney. These may represent vascular calcifications versus non obstructing stones.
== END 2018-05-20 01:33 ==
PROVIDERS: PCP Family Medicine; Visit Provider Surgery
DX: K70.31 Alcoholic cirrhosis of liver with ascites (principal); K80.20 Calculus of gallbladder without cholecystitis without obstruction; N28.9 Disorder of kidney and ureter, unspecified
CPT/HCPCS: 76700

== ENCOUNTER 2018-06-02 01:23 | Outpatient (CLI) | payer MEDICARE, SELFPAY ==
--- NOTE | 2018-06-02 10:30 | MERGE_ITS ---
*[facility]* *[facility]* [address] [place] [address] Date of study: 06/02/2018 Transthoracic Echocardiography M-mode, complete 2D, complete spectral Doppler, and color Doppler *STUDY CONCLUSIONS* Impressions: The patient was in atrial fibrillation throughout study. This rhythm can interfere with accurate global and segmental wall motion analysis. Summary: 1. Left ventricle: The cavity size was normal. Wall thickness was increased in a pattern of mild LVH. Systolic function was normal. The estimated ejection fraction was 55-60%. Wall motion was normal; there were no regional wall motion abnormalities. 2. Mitral valve: Mildly calcified annulus. There was mild regurgitation. 3. Left atrium: The atrium was severely dilated. 4. Right ventricle: The cavity size was mildly to moderately dilated. Wall thickness was normal. Systolic function was normal. 5. Right atrium: The atrium was dilated. 6. Tricuspid valve: There was moderate regurgitation. 7. Pulmonary arteries: Pulmonary systolic pressure was mildly increased, in the range of 40mm Hg to 45mm Hg. *PATIENT PRESENTATION* Height: 182.9cm ((72in) ) S/D Pressure: 119 / 59 Weight: 99.8kg ((219.5lb) ) BSA: 2.27m^2 Test start time: 10:30 AM. Test stop time: 11:30 AM. PERFORMING Unknown CONSULTING Brenton Raymundo PERFORMING [facility] ORDERING Ofelia Caraballo REFERRING Ofelia Caraballo SANDBLAST OR SHOTBLAST EQUIPMENT TENDER Xenia Carpio RT (R)(CT), [facility] *PROCEDURE DATA* Procedure information: This study was interpreted by [facility]. Pertinent images and digital data are archived for permanent storage and are available for subsequent review. Comparison was made to the study of 04/12/2016. Study status: Routine. Transthoracic echocardiography. M-mode, complete 2D, complete spectral Doppler, and color Doppler. A Transthoracic Echocardiogram was performed. Scanning was performed from the parasternal, apical, subcostal, and suprasternal notch acoustic windows. Images were obtained using an [id number] cardiac ultrasound machine. Image quality was adequate. Study completion: The patient tolerated the procedure well. There were no complications. History: PMH: Chronic afib I 48.2 alcoholic cirrhosis of liver with ascites. k70.31. *CARDIAC ANATOMY* Left ventricle: The cavity size was normal. Wall thickness was increased in a pattern of mild LVH. Systolic function was normal. The estimated ejection fraction was 55-60%. Wall motion was normal; there were no regional wall motion abnormalities. The study was not technically sufficient to allow evaluation of LV diastolic dysfunction due to atrial fibrillation. Aortic valve: Trileaflet; normal thickness, mildly calcified leaflets. Mobility was not restricted. Doppler: Transvalvular velocity was within the normal range. There was no stenosis. There was no significant regurgitation. VTI ratio of LVOT to aortic valve: 0.65. Valve area (VTI): 2.2cm^2. Indexed valve area (VTI): 1cm^2/m^2. Peak velocity ratio of LVOT to aortic valve: 0.55. Valve area (Vmax): 1.9cm^2. Indexed valve area (Vmax): 0.8cm^2/m^2. Mean velocity ratio of LVOT to aortic valve: 0.58. Valve area (Vmean): 2cm^2. Indexed valve area (Vmean): 0.9cm^2/m^2. Mean gradient (S): 4.6mm Hg. Peak gradient (S): 8.2mm Hg. Aorta: Aortic root: The aortic root was normal in size. Ascending aorta: The ascending aorta was normal in size. Mitral valve: Mildly calcified annulus. Mobility was not restricted. Doppler: Transvalvular velocity was within the normal range. There was no evidence for stenosis. There was mild regurgitation. Peak gradient (D): 5.7mm Hg. Left atrium: The atrium was severely dilated. Right ventricle: The cavity size was mildly to moderately dilated. Wall thickness was normal. Systolic function was normal. Pulmonic valve: Structurally normal valve. Doppler: Transvalvular velocity was within the normal range. There was no evidence for stenosis. There was trivial regurgitation. Peak gradient (S): 2mm Hg. Tricuspid valve: Structurally normal valve. Doppler: Transvalvular velocity was within the normal range. There was no evidence for stenosis. There was moderate regurgitation. Pulmonary artery: Pulmonary systolic pressure was mildly increased, in the range of 40mm Hg to 45mm Hg. Right atrium: The atrium was dilated. Pericardium: There was no pericardial effusion. Systemic veins: Inferior vena cava: Well visualized. The vessel was patent and normal in size. The respirophasic diameter changes were in the normal range (greater than or equal to 50%). Baseline ECG: Atrial fibrillation. Measurements Left ventricle Value 04/12/2016 Reference LV ID, ED, PLAX 5.0 cm 5.2 3.5 - 6.0 LV ID, ES, PLAX 3.5 cm 3.3 2.1 - 4.0 LV PW thickness, ED, PLAX 1.0 cm 1.1 LV end-diastolic volume, 72 ml 1-p A2C LV ejection fraction, 1-p 47 % 42 A2C LV end-diastolic volume, 95 ml 1-p A4C LV ejection fraction, 1-p 58 % 39 A4C LV e', lateral 0.122 m/sec LV E/e', lateral 10 LV e', medial 0.119 m/sec LV E/e', medial 10 LV e', average 0.121 m/sec LV E/e', average 10 Ventricular septum Value 04/12/2016 Reference IVS thickness, ED, PLAX 1.2 cm 1.0 LVOT Value 04/12/2016 Reference LVOT ID, A-P 2.1 cm 2.2 LVOT area 3.5 cm^2 3.9 LVOT peak velocity, S 0.79 m/sec 0.93 LVOT mean velocity, S 0.59 m/sec LVOT VTI, S 14.8 cm 16.7 LVOT peak gradient, S 2.5 mm Hg LVOT mean gradient, S 1.5 mm Hg 2 Stroke volume (SV), LVOT 51 ml DP Stroke index (SV/bsa), 23 ml/m^2 LVOT DP Aortic valve Value 04/12/2016 Reference Aortic valve peak 1.4 m/sec velocity, S Aortic valve mean 1.01 m/sec velocity, S Aortic valve VTI, S 23.0 cm Aortic mean gradient, S 4.6 mm Hg 6 Aortic peak gradient, S 8.2 mm Hg 11 VTI ratio, LVOT/AV 0.65 0.52 Aortic valve area, VTI 2.2 cm^2 20.4 Velocity ratio, peak, 0.55 0.56 LVOT/AV Aortic valve area, peak 1.9 cm^2 2.2 velocity Velocity ratio, mean, 0.58 LVOT/AV Aortic valve area, mean 2 cm^2 velocity Aortic valve area/bsa, 0.9 cm^2/m^2 mean velocity Aorta Value 04/12/2016 Reference Aortic root ID, ED 3.4 cm 3.5 Ascending aorta ID, A-P, S 3.6 cm 3.5 Left atrium Value 04/12/2016 Reference LA ID, A-P, ES 4.4 cm LA ID/bsa, A-P 1.9 cm/m^2 <=2.2 LA area, ES, A4C (H) 32.1 cm^2 32 8.8 - 23.4 LA area, ES, A2C 30 cm^2 LA volume/bsa, ES, 1-p A4C 54 ml/m^2 47 LA volume, ES, 2-p 111 ml LA volume/bsa, ES, 2-p 49 ml/m^2 LA/aortic root ratio 1.28 Mitral valve Value 04/12/2016 Reference Mitral E-wave peak 1.2 m/sec 0.89 velocity Mitral peak gradient, D 5.7 mm Hg 3.2 Tricuspid valve Value 04/12/2016 Reference Tricuspid regurg peak 3 m/sec 2.8 velocity Tricuspid peak RV-RA 36.7 mm Hg 32.3 gradient Right atrium Value 04/12/2016 Reference RA area, ES, A4C (H) 31.1 cm^2 31 8.3 - 19.5 Right ventricle Value 04/12/2016 Reference RV ID, minor axis, ED, A4C 4.9 cm base Pulmonic valve Value 04/12/2016 Reference Pulmonic peak gradient, S 2 mm Hg 6.8 Legend: (L) and (H) rylee values outside specified reference range. I have personally reviewed the images and have reviewed and edited the reported findings. Electronically signed by Kenny Hernandez 06/02/2018 15:20
== END 2018-06-02 01:43 ==
PROVIDERS: PCP Family Medicine; Visit Provider Surgery
DX: I48.2 Chronic atrial fibrillation (principal); I51.7 Cardiomegaly; K70.31 Alcoholic cirrhosis of liver with ascites; I34.0 Nonrheumatic mitral (valve) insufficiency
CPT/HCPCS: 36415; 80053; 93306; 85610

== ENCOUNTER 2018-06-02 01:48 | Outpatient (CLI) | payer MEDICARE, SELFPAY ==
[2018-06-02 11:05] LABS: INR 1.1 (0.9-1.1); Prothrombin Time 11.1 sec (9.3-11.0)
[2018-06-02 11:12] LABS: ALT 15 U/L (12-78); AST 19 U/L (15-37); Albumin 3.7 g/dL (3.4-5.0); Alkaline Phosphatase 107 U/L (46-116); Anion Gap 10.2 mmol/L (3-11); BUN 34 mg/dL (7-18); Bilirubin, Total 0.6 mg/dL (0.2-1.0); CO2 29.8 mmol/L (21.0-32.0); CREATININE 1.65 mg/dL (0.70-1.30); Calcium 9.1 mg/dL (8.5-10.1); Chloride 99 mmol/L (98-107); Estimated GFR 41.69 (mL/min/1.73m2); Glucose 235 mg/dL (70-100); Potassium 3.9 mmol/L (3.5-5.1); Sodium 139 mmol/L (136-145); Total Protein 7.1 g/dL (6.4-8.2)
== END 2018-06-02 02:08 ==
PROVIDERS: Surgery; PCP Family Medicine; Visit Provider Family Medicine
DX: K70.31 Alcoholic cirrhosis of liver with ascites (principal); I48.2 Chronic atrial fibrillation; Z79.01 Long term (current) use of anticoagulants
CPT/HCPCS: 36415; 80053; 85610

== ENCOUNTER 2018-06-24 01:04 | Outpatient (CLI) | payer MEDICARE, SELFPAY ==
[2018-06-24 12:37] LABS: Hemoglobin A1C 6.6 % (4.5-6.2)
== END 2018-06-24 01:24 ==
PROVIDERS: PCP Family Medicine; Visit Provider Family Medicine
DX: E11.65 Type 2 diabetes mellitus with hyperglycemia (principal)
CPT/HCPCS: 36415; 83036

== ENCOUNTER 2018-07-24 11:09 | Outpatient (CLI) | payer MEDICARE, SELFPAY ==
[2018-07-24 13:27] LABS: Anion Gap 10.2 mmol/L (3-11); BUN 30 mg/dL (7-18); CO2 24.8 mmol/L (21.0-32.0); Calcium 9.1 mg/dL (8.5-10.1); Chloride 100 mmol/L (98-107); Estimated GFR 40.28 (mL/min/1.73m2); Glucose 186 mg/dL (70-100); Potassium 4.9 mmol/L (3.5-5.1); Sodium 135 mmol/L (136-145)
== END 2018-07-24 11:29 ==
PROVIDERS: PCP Family Medicine; Visit Provider Physician Assistant Medical
DX: K74.60 Unspecified cirrhosis of liver (principal)
CPT/HCPCS: 36415; 80048

== ENCOUNTER 2018-08-04 01:21 | Outpatient (CLI) | payer MEDICARE, SELFPAY ==
[2018-08-04 12:29] LABS: Anion Gap 8.6 mmol/L (3-11); BUN 31 mg/dL (7-18); CO2 27.4 mmol/L (21.0-32.0); CREATININE 1.46 mg/dL (0.70-1.30); Calcium 9.3 mg/dL (8.5-10.1); Chloride 101 mmol/L (98-107); Estimated GFR 48.02 (mL/min/1.73m2); Glucose 209 mg/dL (70-100); Potassium 5.5 mmol/L (3.5-5.1); Sodium 137 mmol/L (136-145)
== END 2018-08-04 01:41 ==
PROVIDERS: Physician Assistant Medical; PCP Family Medicine; Visit Provider Dermatology
DX: K74.60 Unspecified cirrhosis of liver (principal); R18.8 Other ascites
CPT/HCPCS: 36415; 80048

== ENCOUNTER 2018-08-17 08:36 | Outpatient (CLI) | payer MEDICARE, SELFPAY ==
[2018-08-17 12:46] LABS: Anion Gap 10.2 mmol/L (3-11); BUN 23 mg/dL (7-18); CO2 27.8 mmol/L (21.0-32.0); CREATININE 1.31 mg/dL (0.70-1.30); Calcium 8.8 mg/dL (8.5-10.1); Chloride 100 mmol/L (98-107); Estimated GFR 54.41 (mL/min/1.73m2); Glucose 205 mg/dL (70-100); Potassium 4.3 mmol/L (3.5-5.1); Sodium 138 mmol/L (136-145)
== END 2018-08-17 08:56 ==
PROVIDERS: PCP Family Medicine; Visit Provider Physician Assistant Medical
DX: K74.60 Unspecified cirrhosis of liver (principal); R18.8 Other ascites
CPT/HCPCS: 36415; 80048

== ENCOUNTER 2019-02-23 11:27 | Emergency (ER) | payer MEDICARE, SELFPAY ==
[2019-02-23 11:31] VITALS: BP 149/68; PULSE 71; RESP 18; TEMP 36.8; O2SAT 98
--- NOTE | 2019-02-23 11:46 | ED.GENADUL_ITS ---
Discharge Plan Disposition Patient Disposition: HOME Discharge Details Chief Complaint: Orthopedic Clinical Impression: Closed fracture of head of left radius Primary Care Provider: Brenton Raymundo ED Provider: Polo Walker Home Meds and New Rx's Prescriptions: No Action apixaban 2.5 mg tablet 2.5 mg PO BID Qty: 180 RF: 4 spironolactone 50 mg tablet 25 mg PO DAILY Qty: 45 RF: 4 docusate sodium [Colace] 100 mg capsule 100 mg PO BID PRN PRN (Reason: constipation) 90 Days Qty: 180 RF: 4 epinephrine [EpiPen 2-Virgil] 0.3 MG/0.3 ML auto-injector 0.3 mg IM ONCE Qty: 1 RF: 2 quetiapine [Seroquel] 100 mg tablet 100 mg PO HS PRN (Reason: anxiety) Qty: 90 RF: 4 amlodipine 10 mg tablet 10 mg PO DAILY Qty: 90 RF: 4 doxycycline hyclate 50 mg capsule 50 mg PO BID Qty: 180 RF: 4 furosemide 40 mg tablet 40 mg PO DAILY Qty: 90 RF: 4 morphine 30 mg tablet 30 mg PO TID MDD 90 mg PRN (Reason: knee pain) Qty: 84 RF: 0 morphine 100 mg tablet extended release 100 mg PO TID MDD 300 mg PRN (Reason: Chronic knee pain) Qty: 84 RF: 0 Discharge Instructions Instructions: Arm Fracture in Adults (ED) Additional Instructions: Your x-rays are concerning for a fracture of the bone in the left forearm. You must remain in the sling for the next 2 to 3 days until evaluated by orthopedics. Take Tylenol 500 mg 2 tabs every 8 hours for pain. Ice and elevate the affected limb. Return should you develop severe worsening pain or numbness or tingling in the hands. Referrals: Arthur Ca MD [ [facility] STAFF PHYSICIAN] - 1 week Discharge Data Discharge Date/Time-TO BE ENTERED AT DEPARTURE: 02/23/19 13:29 Medical Decision Making This is a nontoxic-appearing 68-year-old gentleman who fell on an outstretched left arm yesterday. Neurovascularly intact. Vital signs stable. No other outward signs of trauma. His tenderness extends from the left wrist all the way up to the elbow. X-rays concerning for a positive sail sign and a proximal radial head fracture. No rib fracture identified on plain films. Will place patient in a simple sling and have him follow-up with orthopedics in the next 3 to 5 days for repeat image. Discussed return precautions with the patient along with supportive care at home. HPI General Date/Time Provider Initiated Documentation: 02/23/19 11:31 . HPI Narrative: Patient is a 68-year-old male who presents to the emergency department with left wrist/elbow pain status post falling 2 days ago. He states that he had pain with movement of the left wrist. He denies any numbness or tingling of the hand. No other trauma reported. Related Data Home Medications Medication Instructions Recorded Confirmed epinephrine [Epipen 2-Virgil] 0.3 mg IM ONCE #1 ea 10/17/17 11/19/18 quetiapine 100 mg tablet 100 mg PO HS PRN #90 tab 12/11/17 11/19/18 amlodipine 10 mg tablet 10 mg PO DAILY #90 tab 02/10/18 11/19/18 doxycycline hyclate 50 mg capsule 50 mg PO BID #180 tab-cap 06/01/18 11/19/18 apixaban 2.5 mg tablet 2.5 mg PO BID #180 tab 06/25/18 02/23/19 furosemide 40 mg tablet 40 mg PO DAILY #90 tab 07/20/18 11/19/18 spironolactone 50 mg tablet 25 mg PO DAILY #45 tab 07/30/18 11/19/18 morphine 100 mg tablet,extended 100 mg PO TID PRN #84 tab MDD 300 02/08/19 02/23/19 release mg morphine 30 mg immediate release 30 mg PO TID PRN #84 tab-cap MDD 02/08/19 02/23/19 tablet 90 mg docusate sodium 100 mg capsule 100 mg PO BID PRN PRN 90 Days #180 02/23/19 02/23/19 cap Previous Rx's Medication Instructions Recorded epinephrine [Epipen 2-Virgil] 0.3 mg IM ONCE #1 ea 10/17/17 quetiapine 100 mg tablet 100 mg PO HS PRN #90 tab 12/11/17 amlodipine 10 mg tablet 10 mg PO DAILY #90 tab 02/10/18 doxycycline hyclate 50 mg capsule 50 mg PO BID #180 tab-cap 06/01/18 apixaban 2.5 mg tablet 2.5 mg PO BID #180 tab 06/25/18 furosemide 40 mg tablet 40 mg PO DAILY #90 tab 07/20/18 spironolactone 50 mg tablet 25 mg PO DAILY #45 tab 07/30/18 morphine 100 mg tablet,extended 100 mg PO TID PRN #84 tab MDD 300 02/08/19 release mg morphine 30 mg immediate release 30 mg PO TID PRN #84 tab-cap MDD 02/08/19 tablet 90 mg docusate sodium 100 mg capsule 100 mg PO BID PRN PRN 90 Days #180 02/23/19 cap Allergies Allergy/AdvReac Type Severity Reaction Status Date / Time spironolactone Allergy Unknown Unverified 02/23/19 11:35 bee pollen Allergy Unverified 02/23/19 11:35 General Stated Complaint: Orthopedic LUCERO: 4 Review of Systems ENT Ears, Nose, Mouth, and Throat: Denies neck pain Cardiovascular Cardiovascular: Denies claudication and Denies dyspnea Respiratory Respiratory: Denies dyspnea Musculoskeletal Musculoskeletal: Reports arthralgias, Reports joint swelling, Reports limited range of motion, Denies neck pain, Denies numbness, Reports stiffness and Denies tingling Integumentary/Breasts Skin/Breast: Denies sores Neurologic Neurologic: Denies numbness, Denies radicular pain, Denies sensory deficit, Denies tingling and Denies paresthesias [facility] Medical History Acute kidney injury (Resolved) Alcoholic cirrhosis of liver with ascites (Chronic 04/18/16) Chronic atrial fibrillation (Chronic 01/17/17) Chronic hepatitis (Chronic) Hepatitis C successfully treated with undetectable viral load Chronic obstructive lung disease (Chronic) Chronic pain syndrome (Chronic 10/30/11) 10/10/11 NARCOTIC CONTRACT 07/10/17- CONTROLLED SUBSTANCE AGREEMENT APPROVED X 6 MONTHS COPD (chronic obstructive pulmonary disease) (Chronic) 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 Brother No problems noted. Brother Substance abuse Brother Substance abuse Social History Smoking/Tobacco Use Status: Former Tobacco Use Alcohol Intake: never Drug use: Never Substance use type: does not use Pets and animals: Yes Pets and animals: cat(s) Duration: 30-45 minutes/day Frequency: daily Morenita/Moravian: Scientologist Special morenita needs: No Do you feel safe in your relationship?: Yes Exam Const General: cooperative and healthy appearing Orientation: alert, awake and oriented x3 HENMT Head: normal to inspection Ears: hearing grossly normal bilaterally Eyes General: appearance normal, both eyes and all related structures EOM: EOM intact bilaterally Neck Neck: normal visual inspection and supple Chest Chest: normal inspection of the chest Resp Effort & Inspection: normal respiratory effort Auscultation: clear to auscultation bilaterally Cardio Pulses: normal peripheral pulses Skin Trauma: no lacerations or abrasions Neuro Motor: muscle tone normal throughout Sensory Exam: no sensory deficits noted Extrem Left upper extremity: elbow/forearm Details: tenderness Location: of the proximal forearm and swelling; no ecchymosis and no crepitus and wrist Details: tenderness Location: of the distal radius Course Vital Signs Vital signs: Vital Signs Temperature 36.8 C 02/23/19 11:31 Pulse 71 02/23/19 11:31 Respiratory Rate 18 02/23/19 11:31 Blood Pressure 149/68 H 02/23/19 11:31 Pulse Oximetry 98 02/23/19 11:31 Temperature 36.8 C 02/23/19 11:31 Temperature Source Skin 02/23/19 11:31 Pulse 71 02/23/19 11:31 Respiratory Rate 18 02/23/19 11:31 Respiratory Effort 02/23/19 11:36 Blood Pressure 149/68 H 02/23/19 11:31 Blood Pressure Position Sitting 02/23/19 11:31 Pulse Oximetry 98 02/23/19 11:31 Oxygen Delivery Method Room Air 02/23/19 11:31 Oxygen Flow Rate 0 02/23/19 11:31 Pain Level 9 02/23/19 11:31
[2019-02-23] MEDS: Acetaminophen 500 MG TAB 1000 MG PO (11:51)
--- NOTE | 2019-02-23 11:55 | DI.RAD_ITS ---
EXAM: XR WRIST LT COMPLETE INDICATION: Distal radius pain status post fall. N/V intact. COMPARISON: No exams were available for comparison TECHNIQUE: 2D digital imaging was performed. FINDINGS: No acute fracture or dislocation is seen. There are degenerative changes at the distal radial ulnar joint and intercarpal joints. IMPRESSION: Degenerative changes. No acute abnormality.
--- NOTE | 2019-02-23 12:15 | DI.RAD_ITS ---
EXAM: XR ELBOW LT COMPLETE INDICATION: Proximal lateral elbow tenderness status post fall. COMPARISON: XR WRIST LT COMPLETE from 02/23/2019 TECHNIQUE: 2D digital imaging was performed. FINDINGS: A joint effusion is seen. There is a fracture seen extending transversely through the radial head. There is no involvement of the articular surface or significant displacement. The distal humerus and proximal ulna appear intact. IMPRESSION: Nondisplaced fracture of the radial head.
== END 2019-02-23 13:29 | disposition home or self-care (01) ==
PROVIDERS: Emergency Provider Physician Assistant; PCP Family Medicine
DX: S52.122A Displaced fracture of head of left radius, initial encounter for closed fracture (principal); M25.532 Pain in left wrist; W19.XXXA Unspecified fall, initial encounter; Z79.01 Long term (current) use of anticoagulants; J44.9 Chronic obstructive pulmonary disease, unspecified; Z87.891 Personal history of nicotine dependence; I10 Essential (primary) hypertension; E11.9 Type 2 diabetes mellitus without complications
CPT/HCPCS: 24650; 99284; 73080; 73110; 99281; L3650

== ENCOUNTER 2019-03-01 13:20 | Outpatient (CLI) | payer MEDICARE, SELFPAY ==
--- NOTE | 2019-03-01 13:24 | DI.RAD_ITS ---
EXAM: XR ELBOW LT COMPLETE INDICATION: L radial head fx. COMPARISON: XR ELBOW LT COMPLETE from 02/23/2019 TECHNIQUE: 2D digital imaging was performed. FINDINGS: There has been no change in the radial head fracture. Marked soft tissue swelling remains present. No new abnormalities are seen.
--- NOTE | 2019-03-01 13:30 | DI.RAD_ITS ---
EXAM: XR WRIST LT LIMITED INDICATION: L wrist injury. COMPARISON: XR WRIST LT COMPLETE from 02/23/2019 TECHNIQUE: 2D digital imaging was performed. FINDINGS: PA and lateral views were performed. There are again noted to be degenerative changes at the distal radial ulnar joint. There is widening of scapholunate distance consistent with scapholunate ligamen t disruption. There is no significant dorsal tilt of the lunate. There are mild degenerative change s at the 1st carpal metacarpal joint. No fracture is identified. IMPRESSION: Scapholunate ligament disruption. Degenerative changes greatest of the distal radial ulnar joint.
== END 2019-03-01 13:40 ==
PROVIDERS: PCP Family Medicine; Referring Provider Family Medicine; Visit Provider Student in an Organized Health Care Education/Training Program
DX: S52.135A Nondisplaced fracture of neck of left radius, initial encounter for closed fracture (principal); W00.0XXA Fall on same level due to ice and snow, initial encounter; M19.032 Primary osteoarthritis, left wrist; I10 Essential (primary) hypertension; E11.9 Type 2 diabetes mellitus without complications; J44.9 Chronic obstructive pulmonary disease, unspecified; Z87.891 Personal history of nicotine dependence
CPT/HCPCS: 99214; 73080; 73100; L3908

== ENCOUNTER 2019-04-05 14:31 | Outpatient (CLI) | payer MEDICARE, SELFPAY ==
--- NOTE | 2019-04-05 14:19 | DI.RAD_ITS ---
EXAM: XR ELBOW LT COMPLETE CLINICAL HISTORY: L elbow fx TECHNIQUE: COMPARISON: XR ELBOW LT COMPLETE from 03/01/2019 FINDINGS: Three views were obtained and show healing fracture of the radial head with some demineralization at the fracture site and moderate callus formation. No gross interval change in alignment in comparison with examination of March 01. IMPRESSION:
== END 2019-04-05 14:51 ==
PROVIDERS: PCP Family Medicine; Referring Provider Family Medicine; Visit Provider Student in an Organized Health Care Education/Training Program
DX: S52.135D Nondisplaced fracture of neck of left radius, subsequent encounter for closed fracture with routine healing (principal); X58.XXXD Exposure to other specified factors, subsequent encounter; J44.9 Chronic obstructive pulmonary disease, unspecified; F17.210 Nicotine dependence, cigarettes, uncomplicated; I10 Essential (primary) hypertension; E11.9 Type 2 diabetes mellitus without complications
CPT/HCPCS: 99213; 73080

== ENCOUNTER → 2019-05-17 10:28 | Outpatient (BNVA) | payer MEDICARE, SELFPAY | PROVIDERS: PCP Family Medicine; Referring Provider Family Medicine; Visit Provider Student in an Organized Health Care Education/Training Program | DX: S52.135D Nondisplaced fracture of neck of left radius, subsequent encounter for closed fracture with routine healing; X58.XXXD Exposure to other specified factors, subsequent encounter | CPT/HCPCS: 99212 ==

== ENCOUNTER 2020-01-03 11:56 | Outpatient (REF) | payer MEDICARE, SELFPAY ==
[2020-01-03 13:29] LABS: Abs Immature Grans 0.03 10^3/uL (0.0-0.06); Absolute Basophil Count 0.02 10^3/uL (0.0-0.2); Absolute Eosinophil Count 0.11 10^3/uL (0.0-0.7); Absolute Lymphocyte Count 1.16 10^3/uL (1.2-3.4); Absolute Monocyte Count 0.59 10^3/uL (0.1-0.8); Absolute Neutrophil Count 5.89 10^3/uL (1.2-6.7); Basophils % 0.3; Eosinophils % 1.4; HCT 46.5 % (40.0-50.0); HGB 15.6 g/dL (13.5-17.5); Immature Grans % 0.4; Lymphocytes % 14.9; MCH 29.3 pg (27.0-33.0); MCHC 33.5 % (32.0-36.0); MCV 87.4 fL (80-95); MPV 11.4 fL (8.0-11.0); Monocytes % 7.6; Neutrophils % 75.4; Nucleated RBC 0 %; Platelet Count 134 10^3/uL (130-400); RBC 5.32 10^6/uL (4.36-5.78); RDW 13.5 % (11.8-14.1); RDW-SD 42.9 fL
[2020-01-03 13:54] LABS: ALT 16 U/L (16-63); AST 18 U/L (15-37); Albumin 3.8 g/dL (3.4-5.0); Alkaline Phosphatase 127 U/L (46-116); Anion Gap 10.3 mmol/L (3-11); BUN 22 mg/dL (7-18); Bilirubin, Total 0.5 mg/dL (0.2-1.0); CO2 27.7 mmol/L (21.0-32.0); CREATININE 1.52 mg/dL (0.70-1.30); Calcium 8.8 mg/dL (8.5-10.1); Calculated LDL 102 mg/dL (<100); Chloride 100 mmol/L (98-107); Cholesterol 166 mg/dL (<200); Glucose 212 mg/dL (74-106); HDL Cholesterol 52 mg/dL (40-60); Potassium 4.1 mmol/L (3.5-5.1); Sodium 138 mmol/L (136-145); Total Protein 7.6 g/dL (6.4-8.2); Triglyceride 64 mg/dL (<150)
[2020-01-03 14:07] LABS: Hemoglobin A1C 8.1 % (<5.7)
== END 2020-01-03 12:16 ==
LOC: LBN 11:56
PROVIDERS: PCP Nurse Practitioner Family; Visit Provider Nurse Practitioner Family
DX: E11.65 Type 2 diabetes mellitus with hyperglycemia (principal); I12.9 Hypertensive chronic kidney disease with stage 1 through stage 4 chronic kidney disease, or unspecified chronic kidney disease; N18.9 Chronic kidney disease, unspecified; E11.22 Type 2 diabetes mellitus with diabetic chronic kidney disease
CPT/HCPCS: 80053; 80061; 83036; 85025

== ENCOUNTER 2020-01-07 03:25 | Outpatient (CLI) | payer MEDICARE, SELFPAY ==
--- NOTE | 2020-01-07 09:15 | DI.CTLCSR_ITS ---
EXAM: CT CHEST LUNG CANCER SCREEN CLINICAL HISTORY: Screening for lung cancer,CURRENT SMOKER,F17.210 TECHNIQUE: Imaging Protocol: Axial computed tomography images with coronal and sagittal reformatted images were created and reviewed COMPARISON: CT CHEST WITHOUT CONTRAST from 08/25/2017 FINDINGS: Tracheobronchial tree: Patent where visualized. Mediastinum and Terri: No dominant adenopathy or fluid collection. Pulmonary parenchyma: No consolidation or dominant measurable mass. Central lobular and paraseptal e mphysema greater near the lung apices. Mild fibrotic changes. Suture material near the right lung a pex. Lung Nodules: Tiny calcified nodules left lung base. No suspicious nodules. Pleura: No effusion or pneumothorax. Right-sided posterior pleural calcifications and mild pleural th ickening. Heart: The heart is mildly dilated. Coronary artery calcifications are seen. Mitral valve calcific ations are seen. Aorta: Thoracic aorta non-dilated. Atherosclerotic changes. Upper abdomen: Cirrhotic appearing liver. Bones: Old right posterior rib deformities. Degenerative changes in the thoracic spine. Soft Tissues: Mild bilateral gynecomastia. IMPRESSION: No suspicious pulmonary nodules. Centrilobular and paraseptal emphysema. Right upper lobe scarring. Lung RADS Cat 1 - Negative: No nodules and definitely benign nodules Lung-RADS 1.0 CATEGORIES: Category 0 - Prior chest CT exam(s) being located for comparison. Category 1 - Annual screening in 12 months. No nodules or definitely benign nodules. Category 2 - Annual screening in 12 months. Benign appearance. Nodules with low likelihood of becomin g active cancer. Category 3 - 6-month follow-up. Probably benign. Short-term follow-up suggested. Nodules with low lik elihood of becoming active cancer. Category 4A - 3-month follow-up and CT/PET if >8 mm in size. Suspicious finding. Findings which requi re additional testing. Category 4B - Findings which require additional testing and tissue sampling. Suspicious finding. C Added to Any of the Above - History of prior lung cancer screening. S Added to Any of the Above - Significant unexpected other finding. RADIATION DOSE DELIVERED: 97.26mGy.cm Total DLP DATA REPOSITORY: All CT scans at this facility are submitted to the National Radiology Data Registry (NRDR) Dose Index Registry (DIR) with the [employer] (ACR). RADIATION OPTIMIZATION: All CT scans at this facility use at least one of these dose optimization te chniques: automated exposure control; mA and/or kV adjustment per patient size (includes targeted exa ms where dose is matched to clinical indication); or iterative reconstruction.
== END 2020-01-07 03:45 ==
PROVIDERS: PCP Nurse Practitioner Family; Visit Provider Nurse Practitioner Family
DX: F17.210 Nicotine dependence, cigarettes, uncomplicated (principal); J43.2 Centrilobular emphysema; J43.8 Other emphysema
CPT/HCPCS: G0297

== ENCOUNTER 2020-01-10 07:42 | Outpatient (CLI) | payer MEDICARE, SELFPAY ==
[2020-01-11 20:43] LABS: COVID-19 RT-PCR Result NEGATIVE (Negative)
== END 2020-01-10 08:02 ==
PROVIDERS: PCP Nurse Practitioner Family; Visit Provider Family Medicine
DX: Z01.818 Encounter for other preprocedural examination (principal); Z11.59 Encounter for screening for other viral diseases; J44.9 Chronic obstructive pulmonary disease, unspecified
CPT/HCPCS: U0003

== ENCOUNTER 2020-01-13 02:50 | Outpatient (CLI) | payer MEDICARE, SELFPAY ==
[2020-01-13] MEDS: Inhaler, Assist Device 1 EACH MC (13:47)
[2020-01-13] MEDS: Albuterol HFA 18 GM 200 PUFF INH IH (13:47)
--- NOTE | 2020-01-17 08:50 | W.PFT ---
Date of service: 01/13/20 Time of Service: 12:54 Pulmonary Function Test Result Interpretation Spirometry: Shows mild obstructive airways disease with no bronchodilator response Lung Volumes: Mild restriction Diffusion Capacity: Severely reduced, which is mildly reduced when corrected to alveolar volume Airway Pressure: Normal Impression Combination of mild obstructive airways disease with no bronchodilator response and mild restrictive lung disease. This results in severe diffusion defect. Clinical correlation recommended, work-up for possible underlying interstitial lung disease should be considered Above and beyond treatment for underlying obstructive airways disease Clinical Correlation therefore is recommended.
== END 2020-01-13 03:10 ==
PROVIDERS: PCP Nurse Practitioner Family; Visit Provider Nurse Practitioner Family
DX: F17.210 Nicotine dependence, cigarettes, uncomplicated (principal)
CPT/HCPCS: 94060; 94726; 94729

== ENCOUNTER 2020-03-13 20:48 | Outpatient (REF) | payer MEDICARE, SELFPAY ==
[2020-03-14 16:21] LABS: Rheumatoid Factor 18.7 IU/mL (<12.0)
[2020-03-15 08:52] LABS: Cyclic Citrullinated Peptide <2.5 U/mL (<5.0)
[2020-03-15 15:07] LABS: ANA Interpretation Positive (Negative); ANA Titer Pattern 1:160 Speckled
== END 2020-03-13 21:08 ==
LOC: LBN 20:48
PROVIDERS: PCP Nurse Practitioner Family; Visit Provider Nurse Practitioner Family
DX: J44.9 Chronic obstructive pulmonary disease, unspecified (principal)
CPT/HCPCS: 86200; 86038; 86431

== ENCOUNTER 2020-03-22 02:49 | Outpatient (CLI) | payer MEDICARE, SELFPAY ==
--- NOTE | 2020-03-22 07:30 | DI.RAD_ITS ---
EXAM: XR ARTHRITIS SERIES CLINICAL HISTORY: Workup for RA,RHEUMATOID FACTOR POSITIVE,R76.8. TECHNIQUE: 2D digital imaging was performed. COMPARISON: No exams were available for comparison FINDINGS: PA and [place] views of both hands reveal no evidence of fractures nor subluxation. No osseous lesi ons nor erosions. There is a tiny submillimeter para-articular calcification noted off the lateral a spect of the metacarpophalangeal joint of the 5th finger of the right hand. There are only mild degenerative changes at the articulations between the thumb metacarpals and trape zium XXXX. However, there is significant findings in the wrist, most prominent in the right wrist wh ere there are significant degenerative changes in the radiocarpal joint and proximal carpal row. The re is absence of the proximal half of the right scaphoid-navicular bone and the small cysts noted in the distal half. Also absence of normal lumen lunate bone at this level. Right triquetrum also abno rmal in appearance. No significant ulnar variance on either side. Calcific density measuring 3 mill imeters is noted adjacent to the tip of the ulnar styloid process in the right wrist. IMPRESSION: Findings as above which are most prominent in the right wrist carpal row bones, most prominent in the proximal carpal row and radiocarpal joint space. DATA REPOSITORY: RADIATION DOSE DELIVERED:
--- NOTE | 2020-03-22 07:30 | DI.RAD_ITS ---
EXAM: XR KNEE LT 3V AP,LAT,RAI CLINICAL HISTORY: Painful left knee replacement,T84.84XA,Z96.659,Z96.652,T84.59XS. TECHNIQUE: 2D digital imaging was performed. COMPARISON: CR LEFT KNEE LIMITED 1 OR 2 VIEWS from 06/19/2016 FINDINGS: Stable appearance and alignment of the components of the prosthesis. No obvious fractures or looseni ng but please note that the extreme aspects of both stems are not included in the field of view. No obvious radiographic evidence of osteomyelitis. IMPRESSION: DATA REPOSITORY: RADIATION DOSE DELIVERED:
--- NOTE | 2020-03-22 07:45 | DI.CT_ITS ---
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 TECHNIQUE: Multi planar reconstructions were performed. CONTRAST MATERIAL: None COMPARISON: CT CT CHEST LUNG CANCER SCREEN from 01/07/2020 FINDINGS: CHEST: LUNGS: Advanced COPD-emphysematous changes well as some mild interstitial disease seen peripherally i n both lung yost. There is partially calcified pleural scarring on the right side, unchanged. No new significant masses evident. No pleural effusions. MEDIASTINUM: There is no hilar nor mediastinal adenopathy. Visualized thyroid unremarkable. CARDIAC: Heart size upper normal. There is no pericardial effusion.Caliber of the thoracic aorta is within normal limits. VISUALIZED UPPER ABDOMEN:Cirrhotic appearing liver. OSSEOUS: No significant osseous lesions.. IMPRESSION: 1. Stable appearance when compared to 01/07/2020. 2. Advance COPD emphysematous changes and right upper lobe scarring, both calcified and noncalcified. 3. No pleural effusions and no obvious intrathoracic adenopathy. No new ominous nodules evident. RADIATION DOSE DELIVERED: 184.25mGy.cm Total DLP DATA REPOSITORY: All CT scans at this facility are submitted to the National Radiology Data Registry (NRDR) Dose Index Registry (DIR) with the [employer] (ACR). RADIATION OPTIMIZATION: All CT scans at this facility use at least one of these dose optimization te chniques: automated exposure control; mA and/or kV adjustment per patient size (includes targeted exa ms where dose is matched to clinical indication); or iterative reconstruction.
== END 2020-03-22 03:09 ==
PROVIDERS: PCP Nurse Practitioner Family; Visit Provider Nurse Practitioner Family
DX: Z96.652 Presence of left artificial knee joint (principal); T84.84XA Pain due to internal orthopedic prosthetic devices, implants and grafts, initial encounter; R76.8 Other specified abnormal immunological findings in serum; M19.031 Primary osteoarthritis, right wrist; J44.9 Chronic obstructive pulmonary disease, unspecified
CPT/HCPCS: 71250; 73562; 73120

== ENCOUNTER 2020-06-08 22:01 | Outpatient (REF) | payer MEDICARE, SELFPAY ==
[2020-06-08 20:44] LABS: COMMENT (LAB VIEW ONLY) 78.43 mg/dL; Microalb ug/mg Crea 90.4 ug/mg Cr
== END 2020-06-08 22:02 | disposition home or self-care (01) ==
LOC: NCHCN 22:01
PROVIDERS: PCP Nurse Practitioner Family; Visit Provider Nurse Practitioner Family
DX: E11.9 Type 2 diabetes mellitus without complications (principal)
CPT/HCPCS: 82043; 82570

== ENCOUNTER 2020-08-07 21:39 | Outpatient (REF) | payer MEDICARE, SELFPAY ==
[2020-08-07 21:43] LABS: ALT 23 U/L (16-63); AST 18 U/L (15-37); Albumin 3.7 g/dL (3.4-5.0); Alkaline Phosphatase 106 U/L (46-116); Anion Gap 8.4 mmol/L (3-11); BUN 25 mg/dL (7-18); Bilirubin, Total 0.6 mg/dL (0.2-1.0); CO2 28.6 mmol/L (21.0-32.0); CREATININE 1.9 mg/dL (0.70-1.30); Chloride 100 mmol/L (98-107); Estimated GFR 35.22 (mL/min/1.73m2); Glucose 166 mg/dL (74-106); Potassium 4.5 mmol/L (3.5-5.1); Sodium 137 mmol/L (136-145); Total Protein 7.2 g/dL (6.4-8.2)
[2020-08-08 16:14] LABS: CRP, High Sensitivity 6.02 mg/L (See Note)
== END 2020-08-07 21:40 | disposition home or self-care (01) ==
LOC: LBN 21:39
PROVIDERS: PCP Nurse Practitioner Family; Visit Provider Nurse Practitioner Family
DX: E11.9 Type 2 diabetes mellitus without complications (principal); M05.79 Rheumatoid arthritis with rheumatoid factor of multiple sites without organ or systems involvement
CPT/HCPCS: 80053; 86141; 83036

== ENCOUNTER 2020-08-10 02:43 | Outpatient (CLI) | payer MEDICARE, SELFPAY ==
[2020-08-10 14:51] LABS: Anion Gap 9.5 mmol/L (3-11); BUN 25 mg/dL (7-18); CO2 27.5 mmol/L (21.0-32.0); CREATININE 1.9 mg/dL (0.70-1.30); Chloride 101 mmol/L (98-107); Estimated GFR 35.22 (mL/min/1.73m2); Glucose 239 mg/dL (74-106); Potassium 4.1 mmol/L (3.5-5.1); Sodium 138 mmol/L (136-145)
== END 2020-08-10 02:44 | disposition home or self-care (01) ==
PROVIDERS: PCP Nurse Practitioner Family; Visit Provider Nurse Practitioner Family
DX: N17.9 Acute kidney failure, unspecified (principal)
CPT/HCPCS: 36415; 80048

== ENCOUNTER 2020-09-26 13:19 | Outpatient (REF) | payer MEDICARE, SELFPAY ==
[2020-09-30 11:27] LABS: 2-Hydroxy Ethyl Flurazepam Not Detected ng/mL (Cutoff: 10); 3,4-methylenedioxyamphetamine Not Detected ng/mL (Cutoff: 100); 3,4-methylenedioxyethylampheta Not Detected ng/mL (Cutoff: 100); 3,4-methylenedioxymethamphetam Not Detected ng/mL (Cutoff: 100); 6-monoacetylmorphine Not Detected ng/mL (Cutoff: 25); Alpha-Hydroxy Midazolam Not Detected ng/mL (Cutoff: 10); Alpha-Hydroxy Triazolam Not Detected ng/mL (Cutoff: 10); Alpha-Hydroxyalprazolam Not Detected ng/mL (Cutoff: 10); Alpha-OH-alprazolam Glucuronid Not Detected ng/mL (Cutoff: 50); Alprazolam Not Detected ng/mL (Cutoff: 10); Amphetamine Not Detected ng/mL (Cutoff: 100); Barbiturates Negative ng/mL (Cutoff: 200); Buprenorphine Not Detected ng/mL (Cutoff: 5); Chlordiazepoxide Not Detected ng/mL (Cutoff: 10); Clobazam Not Detected ng/mL (Cutoff: 10); Clonazepam Not Detected ng/mL (Cutoff: 10); Cocaine Negative ng/mL (Cutoff: 150); Codeine Not Detected ng/mL (Cutoff: 25); Comment Normal; Creatinine, U 245.9 mg/dL; Diazepam Not Detected ng/mL (Cutoff: 10); Dihydrocodeine Not Detected ng/mL (Cutoff: 25); EDDP Not Detected ng/mL (Cutoff: 25); Ephedrine Not Detected ng/mL (Cutoff: 100); Fentanyl Not Detected ng/mL (Cutoff: 2); Flurazepam Not Detected ng/mL (Cutoff: 10); Hydrocodone Not Detected ng/mL (Cutoff: 25); Hydromorphone Not Detected ng/mL (Cutoff: 25); Hydromorphone-3-beta-glucuroni Not Detected ng/mL (Cutoff: 100); Lorazepam Not Detected ng/mL (Cutoff: 10); Lorazepam Glucuronide Not Detected ng/mL (Cutoff: 50); Meperidine Not Detected ng/mL (Cutoff: 25); Methadone Not Detected ng/mL (Cutoff: 25); Methamphetamine Not Detected ng/mL (Cutoff:100); Methylphenidate Not Detected ng/mL (Cutoff: 20); Midazolam Not Detected ng/mL (Cutoff: 10); Morphine Not Detected ng/mL (Cutoff: 25); N-Desmethylclobazam Not Detected ng/mL (Cutoff: 200); N-desmethyltapentadol Not Detected ng/mL (Cutoff: 50); Naloxone Not Detected ng/mL (Cutoff: 25); Norbuprenorphine Not Detected ng/mL (Cutoff: 5); Norfentanyl Not Detected ng/mL (Cutoff: 2); Norhydrocodone Not Detected ng/mL (Cutoff: 25); Normeperidine Not Detected ng/mL (Cutoff: 25); Noroxycodone Present ng/mL (Cutoff: 25); Noroxymorphone Present ng/mL (Cutoff: 25); O-desmethyltramadol Not Detected ng/mL (Cutoff: 25); Oxazepam Glucuronide Not Detected ng/mL (Cutoff: 50); Phencyclidine (PCP) Not Detected ng/mL (Cutoff: 20); Phentermine Not Detected ng/mL (Cutoff: 100); Prazepam Not Detected ng/mL (Cutoff: 10); Propoxyphene Not Detected ng/mL (Cutoff: 25); Pseudoephedrine Not Detected ng/mL (Cutoff: 100); Ritalinic Acid Not Detected ng/mL (Cutoff: 100); Specific Gravity 1.026; Tapentadol Not Detected ng/mL (Cutoff: 25); Temazepam Not Detected ng/mL (Cutoff: 10); Temazepam Glucuronide Not Detected ng/mL (Cutoff: 50); Tetrahydrocannabinol Negative ng/mL (Cutoff: 50); Tramadol Not Detected ng/mL (Cutoff: 25); Triazolam Not Detected ng/mL (Cutoff: 10); Zolpidem Phenyl-4-Carboxy acid Not Detected ng/mL (Cutoff: 10); pH 5.6
== END 2020-09-26 13:20 | disposition home or self-care (01) ==
LOC: LBN 13:19
PROVIDERS: PCP Nurse Practitioner Family; Visit Provider Nurse Practitioner Family
DX: M25.562 Pain in left knee (principal); G89.29 Other chronic pain; Z79.899 Other long term (current) drug therapy
CPT/HCPCS: 80307; 80347; 80364

== ENCOUNTER 2021-01-24 00:41 | Outpatient (CLI) | payer MEDICARE, SELFPAY ==
--- NOTE | 2021-01-24 14:00 | DI.CTLCSR_ITS ---
Exam(s) CT CHEST LUNG CANCER SCREEN EXAM: CT CHEST LUNG CANCER SCREEN CLINICAL HISTORY: Screening for lung cancer,current smoker, f17.210 TECHNIQUE: Imaging Protocol: Axial computed tomography images with coronal and sagittal reformatted images were created and reviewed COMPARISON: CT CHEST WITHOUT CONTRAST from 08/25/2017 CT CHEST WITHOUT CONTRAST from 08/25/2017 CR PORTABLE CHEST ONE VIEW from 08/27/[address] CHEST LUNG CANCER SCREEN from 01/07/[address] CHEST HIGH RESOLUTION from 03/22/[address] CHEST HIGH RESOLUTION from 03/22/2020 FINDINGS: Tracheobronchial tree: Patent where visualized. Mediastinum and Terri: No dominant adenopathy or fluid collection. Pulmonary parenchyma: No consolidation or dominant measurable mass. Pleural thickening and scarring b ilaterally, greatest at the right upper lobe. Underlying emphysematous changes, greater in the upper lobes.. Lung Nodules: Calcified granulomas left lower lobe. No suspicious nodules. Pleura: No effusion or pneumothorax. Pleural calcifications on the right. Heart: The heart is not dilated. coronary artery and mitral valve calcifications are seen. Aorta: Thoracic aorta non-dilated. Upper abdomen: Cirrhotic appearing liver. Bones: Right posterior rib deformity. Old right lateral rib fractures. Degenerative changes in the thoracic spine. Soft Tissues: Mild bilateral gynecomastia. IMPRESSION: No suspicious pulmonary nodules. Category Lung RADS Cat 1 - Negative: No nodules and definitely benign nodules Lung-RADS 1.0 CATEGORIES: Category 0 - Prior chest CT exam(s) being located for comparison. Category 1 - Annual screening in 12 months. No nodules or definitely benign nodules. Category 2 - Annual screening in 12 months. Benign appearance. Nodules with low likelihood of becomin g active cancer. Category 3 - 6-month follow-up. Probably benign. Short-term follow-up suggested. Nodules with low lik elihood of becoming active cancer. Category 4A - 3-month follow-up and CT/PET if >8 mm in size. Suspicious finding. Findings which requi re additional testing. Category 4B - Findings which require additional testing and tissue sampling. Modifier S- Potentially clinically significant findings (non lung cancer) RADIATION DOSE DELIVERED: 91.85mGy.cm Total DLP 2.21mGy CTDIvol DATA REPOSITORY: All CT scans at this facility are submitted to the National Radiology Data Registry (NRDR) Dose Index Registry (DIR) with the [employer] (ACR). RADIATION OPTIMIZATION: All CT scans at this facility use at least one of these dose optimization te chniques: automated exposure control; mA and/or kV adjustment per patient size (includes targeted exa ms where dose is matched to clinical indication); or iterative reconstruction.
== END 2021-01-24 01:01 ==
PROVIDERS: PCP Nurse Practitioner Family; Visit Provider Nurse Practitioner Family
DX: F17.210 Nicotine dependence, cigarettes, uncomplicated (principal); Z12.2 Encounter for screening for malignant neoplasm of respiratory organs
CPT/HCPCS: 71271

== ENCOUNTER 2021-07-13 02:11 | Outpatient (CLI) | payer MEDICARE, SELFPAY ==
[2021-07-13 13:00] LABS: Hemoglobin A1C 6.6 % (<5.7)
[2021-07-13 13:04] LABS: ALT 21 U/L (16-63); AST 12 U/L (15-37); Albumin 3.6 g/dL (3.4-5.0); Alkaline Phosphatase 115 U/L (46-116); Anion Gap 7.7 mmol/L (3-11); BUN 18 mg/dL (7-18); Bilirubin, Total 0.8 mg/dL (0.2-1.0); CO2 28.3 mmol/L (21.0-32.0); CREATININE 1.3 mg/dL (0.70-1.30); Calcium 8.8 mg/dL (8.5-10.1); Calculated LDL 68 mg/dL (<100); Chloride 103 mmol/L (98-107); Cholesterol 161 mg/dL (<200); Estimated GFR 54.42 (mL/min/1.73m2); Glucose 179 mg/dL (74-106); HDL Cholesterol 75 mg/dL (40-60); Potassium 4.7 mmol/L (3.5-5.1); Sodium 139 mmol/L (136-145); Total Protein 7.2 g/dL (6.4-8.2); Triglyceride 92 mg/dL (<150)
[2021-07-13 13:11] LABS: COMMENT (LAB VIEW ONLY) 123.87 mg/dL
[2021-07-13 13:31] LABS: Microalb ug/mg Crea 736.6 ug/mg Cr
== END 2021-07-13 02:12 | disposition home or self-care (01) ==
LOC: LOS 02:12
PROVIDERS: PCP Nurse Practitioner Family; Visit Provider Family Medicine
DX: I10 Essential (primary) hypertension (principal); E11.9 Type 2 diabetes mellitus without complications; I48.91 Unspecified atrial fibrillation; N18.9 Chronic kidney disease, unspecified
CPT/HCPCS: 36415; 80053; 80061; 82043; 82570; 83036